=== PATIENT | female | born 1955 | race Caucasian/White ===

== ENCOUNTER 2021-12-10 12:34 | Inpatient (IN) | payer MEDICARE, SELFPAY ==
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
[2021-12-10 18:00] VITALS: BP 138/68; PULSE 91; RESP 16; TEMP 36.4; O2SAT 96
[2021-12-10] MEDS: traZODone HCL 50 MG TABLET PO (19:50)
[2021-12-11 08:22] LABS: Alanine Aminotransferase 26 U/L (0-31); Albumin Level 4.2 g/dL (3.5-5.0); Alkaline Phosphatase 77 U/L (39-117); Anion Gap 16 (12-20); Aspartate Amino Transferase 34 U/L (5-31); Bilirubin Total 1.8 mg/dL (0.0-1.0); Blood Urea Nitrogen 19 mg/dL (9-16); Calcium 9.1 mg/dL (8.4-10.2); Carbon Dioxide 28 mmol/L (22-29); Chloride 103 mmol/L (96-108); Cholesterol 235 mg/dL; Estimated Glomerular Filt Rate > 60; Glucose Fasting 110 mg/dL (60-99); HDL Cholesterol 68 mg/dL; LDL Cholesterol Calculated 154 mg/dl; Potassium 3.8 mmol/L (3.3-5.1); Sodium 143 mmol/L (135-145); Triglycerides 66 mg/dL
[2021-12-11 08:42] LABS: Thyroid Stimulating Hormone 1.58 uIU/mL (0.32-4.0)
--- NOTE | 2021-12-11 10:16 | HO.PSYCHPN ---
Subjective Subjective Date of Service: 12/11/21 Reason For Visit: Major Neurocongnitive disturbance due to medical c Subjective Notes: Section 12B Interim History: Per nursing, pt slightly combative last night when redirected to bed. She did need encouragement to take medications, suspect as pt may not realize what it is. Pt was showered by staff with redirection but no s/s of aggression or agitation. Pt's attention slightly better- did respond to this fiction and nonfiction writer prose when asked how are you? she states I am good. Continues to present with derailment, most sentences are unintelligible- expressive and comprehension impaired. Affect very pleasant. In no physical distress. VS stable. Review of Systems Review of Systems Yes Unobtainable due to mental status Mental Status Exam Mental Status Exam Narrative: Appearance: appears her stated age, wearing hospital gown, malodorous and unkempt, pacing, interrupting at times others but in no evident acute distress. She is smiling. Behavior:pleasant but unable to acknowledge this fiction and nonfiction writer prose pleasant, often pacing, moving around, purposeless motions. psychomotor:often pacing, moving around, purposeless motions. but no aggression. No retardation. Speech:mumbles, disorganized, difficult to understand but spontaneous Thought process:derail, disorganized, non sensical Thought content:unable to understand Mood:unable to assess Affect: pleasant, bright, smiling SI:unable to assess HI:unable to assess VH/AH:she is talking without acknolegdment of who is there but not clear that this is due to psychosis Delusions:not evident Insight/judgment:severely impaired. Memory/cog: alert, only oriented to person. Diagnostics Vital Signs (24Hr): Vital Signs - 24 hr 12/10/21 18:00 Temperature 97.6 F Pulse Rate 91 Respiratory Rate 16 Blood Pressure 138/68 Pulse Oximetry 96 Oxygen Delivery Method Room Air Labs Results: 12/11/21 07:59 Labs: Laboratory Results - last 48 hr 12/11/21 07:59 Sodium 143 Potassium 3.8 Chloride 103 Carbon Dioxide 28 Anion Gap 16 BUN 19 H Creatinine 0.78 Estim Creat Clear Calc TNP Estimated GFR > 60 Fasting Glucose 110 H Calcium 9.1 Total Bilirubin 1.8 H AST 34 H ALT 26 Alkaline Phosphatase 77 Total Protein 7.0 Albumin 4.2 Triglycerides 66 Cholesterol 235 LDL Cholesterol, Calc 154 HDL Cholesterol 68 TSH 1.58 Medications Medications Current Medications Acetaminophen (Acetaminophen 325 Mg Tablet) 650 mg PO Q6H PRN PRN Reason: Headache/Pain Mild Scale (1-3) Al Hydroxide/Mg Hydroxide (Magnesium Hydrox/Alum Hydrox 30 Ml Oral.Susp) 30 ml PO Q6H PRN PRN Reason: Heartburn/Nausea Hydroxyzine HCl (Hydroxyzine Hcl 25 Mg Tablet) 25 mg PO Q6H PRN PRN Reason: Anxiety Magnesium Hydroxide (Milk Of Magnesia 30 Ml Oral.Susp) 30 ml PO DAILY PRN PRN Reason: Constipation Quetiapine Fumarate (Quetiapine Fumarate 50 Mg Tablet) 50 mg PO Q6H PRN PRN Reason: agitation Trazodone HCl (Trazodone Hcl 50 Mg Tablet) 50 mg PO BEDTIME PRN PRN Reason: Insomnia Last Admin: 12/10/21 19:50 Dose: 50 mg Allergies Allergies Allergy/AdvReac Type Severity Reaction Status Date / Time No Known Allergies Allergy Verified 12/10/21 14:27 Assessment & Plan Assessment & Plan (1) Alzheimer's dementia with behavioral disturbance: Status: Acute Code(s): G30.9 - Alzheimer's disease, unspecified; F02.81 - Dementia in other diseases classified elsewhere with behavioral disturbance (2) Delirium superimposed on dementia: Status: Acute Code(s): F05 - Delirium due to known physiological condition Plan Mrs. Ferguson is a 66 year-old woman with hx of Alzheimer's Dementia, dx 2 years ago, per family significant declined in past 3 months but acute change in aggression for past 48hrs prior to bringing her to [place] ED. Pt with hx of recurrent UTIs, but urinalysis negative, not even indication need for culture or microscopic analysis. CBC, BMP unremarkable. Pt presents as pleasantly confused, with poor attention, purposeless psychomotor activation which could indicate a superimposed delirium on underlying dementia. Speech is non sensical. Oriented only to person. Pt does not have capacity to make medication decisions as clear lacks understanding of medical conditions, treatment, and ability to verbalize an answer. HCP has been invoked for this reason and do not anticipate that pt will regain capacity to make medication decisions even if delirium resolves. PLAN 1. Admit on Sect 12b, 15 mins checks, HCP invoked, will reach out to HCP, to sign CV by proxy. 2. continue current medications. 3. obtain further collateral information 4. aftercare planning. 12/11 seroquel prn for agitation. I spent minutes with the patient and/or on the patient floor today, greater than?50% of which was spent counseling/coordinating care. Reason for contiued inpatient stay Substantial Risk for: inability to function
--- NOTE | 2021-12-11 17:37 | PC.NURSE ---
Pt's , Andrew Ferguson, signed a CV by healthcare proxy.
[2021-12-11 18:00] VITALS: BP 105/66; PULSE 97; RESP 16; TEMP 36.3; O2SAT 98
[2021-12-12 06:00] VITALS: BP 121/78; PULSE 81; RESP 16; TEMP 36.8; O2SAT 95
[2021-12-12 07:37] LABS: Estimated Average Glucose 105 mg/dL; Hemoglobin A1c % 5.3 %
[2021-12-12 08:07] LABS: Vitamin B12 489 pg/mL (200-900)
--- NOTE | 2021-12-12 14:29 | HO.PSYCHPN ---
Subjective Subjective Date of Service: 12/12/21 Reason For Visit: Major Neurocongnitive disturbance due to medical c Interim History: The nursing staff reported the patient slept poorly last night, she remains nonsensical at times and carrying a baby doll. The staff has reported that she needs help with feeding and sometimes prompting and cuing are not enough. She has been wandering and being intrusive and needed redirection. On interview the patient was pleasantly confused smiling and stating that she is doing fine. Mental Status Exam Mental Status Exam Patient Appearance: Well Grooomed Patient Orientation: Person Level of Consciousness: Awake Patient Behavior: Cooperative Mood Description: Constricted Affect Description: Calm Patient Cognition Impaired: Yes Ability to Follow Directions: Fair Speech Pattern: Impoverished Hallucinations: None Delusions: Not Present Thought Process: Illogical Thought Content: positive for [place] and positive for Disorganized Judgement: Poor Diagnostics Vital Signs (24Hr): Vital Signs - 24 hr 12/11/21 18:00 12/12/21 06:00 Temperature 97.3 F 98.2 F Pulse Rate 97 81 Respiratory Rate 16 16 Blood Pressure 105/66 121/78 Pulse Oximetry 98 95 Oxygen Delivery Method Room Air Room Air Labs Results: 12/11/21 07:59 Labs: Laboratory Results - last 48 hr 12/11/21 12/11/21 12/11/21 07:59 07:59 07:59 Sodium 143 Potassium 3.8 Chloride 103 Carbon Dioxide 28 Anion Gap 16 BUN 19 H Creatinine 0.78 Estim Creat Clear Calc TNP Estimated GFR > 60 Fasting Glucose 110 H Estimat Average Glucose 105 Hemoglobin A1c % 5.3 Calcium 9.1 Total Bilirubin 1.8 H AST 34 H ALT 26 Alkaline Phosphatase 77 Total Protein 7.0 Albumin 4.2 Triglycerides 66 Cholesterol 235 LDL Cholesterol, Calc 154 HDL Cholesterol 68 Vitamin B12 489 TSH 1.58 Medications Medications Current Medications Acetaminophen (Acetaminophen 325 Mg Tablet) 650 mg PO Q6H PRN PRN Reason: Headache/Pain Mild Scale (1-3) Al Hydroxide/Mg Hydroxide (Magnesium Hydrox/Alum Hydrox 30 Ml Oral.Susp) 30 ml PO Q6H PRN PRN Reason: Heartburn/Nausea Hydroxyzine HCl (Hydroxyzine Hcl 25 Mg Tablet) 25 mg PO Q6H PRN PRN Reason: Anxiety Magnesium Hydroxide (Milk Of Magnesia 30 Ml Oral.Susp) 30 ml PO DAILY PRN PRN Reason: Constipation Quetiapine Fumarate (Quetiapine Fumarate 50 Mg Tablet) 50 mg PO Q6H PRN PRN Reason: agitation Trazodone HCl (Trazodone Hcl 50 Mg Tablet) 50 mg PO BEDTIME PRN PRN Reason: Insomnia Last Admin: 12/10/21 19:50 Dose: 50 mg Allergies Allergies Allergy/AdvReac Type Severity Reaction Status Date / Time No Known Allergies Allergy Verified 12/10/21 14:27 Assessment & Plan Assessment & Plan (1) Alzheimer's dementia with behavioral disturbance: Status: Acute Code(s): G30.9 - Alzheimer's disease, unspecified; F02.81 - Dementia in other diseases classified elsewhere with behavioral disturbance (2) Delirium superimposed on dementia: Status: Acute Code(s): F05 - Delirium due to known physiological condition Plan Mrs. Ferguson is a 66 year-old woman with hx of Alzheimer's Dementia, dx 2 years ago, per family significant declined in past 3 months but acute change in aggression for past 48hrs prior to bringing her to [place] ED. Pt with hx of recurrent UTIs, but urinalysis negative, not even indication need for culture or microscopic analysis. CBC, BMP unremarkable. Pt presents as pleasantly confused, with poor attention, purposeless psychomotor activation which could indicate a superimposed delirium on underlying dementia. Speech is non sensical. Oriented only to person. Pt does not have capacity to make medication decisions as clear lacks understanding of medical conditions, treatment, and ability to verbalize an answer. HCP has been invoked for this reason and do not anticipate that pt will regain capacity to make medication decisions even if delirium resolves. PLAN 1. Admit on Sect 12b, 15 mins checks, HCP invoked, will reach out to HCP, to sign CV by proxy. 2. continue current medications. 3. obtain further collateral information 4. aftercare planning. 5. Continue Seroquel p.r.n. I spent ___20___ minutes with the patient and/or on the patient floor today, greater than?50% of which was spent counseling/coordinating care. Reason for contiued inpatient stay Substantial Risk for: inability to function, rapid decompensation and med/psych decompensation
--- NOTE | 2021-12-12 17:36 | P.CONHOSP_ITS ---
History of Present Illness Data of Consult Service Date: 12/12/21 Requesting physician: Leonor Padilla Primary Care Provider: Nonstaff Physician HPI Reason for consult: medical h&p Patient with alzheimer's dementia (diagnosed 2 years ago) admitted to psychiatry from [facility] ED due to decline in functioning over the last 3 months and increased aggitation/aggression more recently. There were complaints from family about burning on mictrition and suprapubic pain and has history of recurrent UTI on macrobid daily. In the ED, urinalysis was negative, culture not performed. Hematology and chemistry studies normal. The patient is pleasantly confused on examination and is completely unable to make sensible/meaningful statements or answer targeted questions or provide history. History obtained from paper chart in [facility]. Review of Systems Review of Systems: Yes Unobtainable due to mental status PMFSH Social History Household Members: Spouse Housing: House Do you presently have visiting nurse or other home services: Yes (According to medical records the pt has an elder care provider.) Patient Tobacco Use Status: Never used Tobacco Use of substances other than those prescribed or required for medical reasons: No Currently Displaying Signs/Symptoms of Drug Intoxication Withdrawal: No Have you been hit, kicked, punched, or otherwise hurt by someone within the past year? If so, by whom?: No Do you feel safe in your current relationship?: No Is there a partner from a previous relationship who is making you feel unsafe now?: No Are you made to feel afraid or neglected: No Advance Directives: Yes Advance Directives on File: Yes Advance Directives Date on File: 12/10/21 Do you have thoughts of harming others: None Do you have a plan to hurt others: No Plan Recently lost weight without trying: No Eating poorly because of decreased appetite: Yes Nutrition Risks: Poor intake 0-25% >4 days Patient : No : No Poor oral hygiene: No service: No Sexual orientation: Straight/Heterosexual Meds Allergies Allergy/AdvReac Type Severity Reaction Status Date / Time No Known Allergies Allergy Verified 12/10/21 14:27 Active Medications: Current Medications Acetaminophen (Acetaminophen 325 Mg Tablet) 650 mg PO Q6H PRN PRN Reason: Headache/Pain Mild Scale (1-3) Al Hydroxide/Mg Hydroxide (Magnesium Hydrox/Alum Hydrox 30 Ml Oral.Susp) 30 ml PO Q6H PRN PRN Reason: Heartburn/Nausea Hydroxyzine HCl (Hydroxyzine Hcl 25 Mg Tablet) 25 mg PO Q6H PRN PRN Reason: Anxiety Magnesium Hydroxide (Milk Of Magnesia 30 Ml Oral.Susp) 30 ml PO DAILY PRN PRN Reason: Constipation Quetiapine Fumarate (Quetiapine Fumarate 50 Mg Tablet) 50 mg PO Q6H PRN PRN Reason: agitation Trazodone HCl (Trazodone Hcl 50 Mg Tablet) 50 mg PO BEDTIME PRN PRN Reason: Insomnia Last Admin: 12/10/21 19:50 Dose: 50 mg Home Medications Medication Instructions Recorded Confirmed Last Taken Type Risperdal 1 tab PO 2XD 12/10/21 12/10/21 Unknown History lorazepam 0.5 mg PO 3XD 12/10/21 12/10/21 Unknown History Physical Exam Vital Signs and Narrative: Vital Signs: Last Vital Signs Temp 98.2 F 12/12/21 06:00 Pulse 81 12/12/21 06:00 Resp 16 12/12/21 06:00 BP 121/78 12/12/21 06:00 Pulse Ox 95 12/12/21 06:00 O2 Del Method 12/12/21 06:00 Constitutional - Awake and Alert, No apparent distress Eyes - PERRLA, EOMI Cardiovascular - S1S2, RRR, No edema Respiratory - Normal lung expansion, Normal respiratory effort, No respiratory distress, CTA bilaterally Gastrointestinal - NT / ND; +BS; No rebound or guarding Extremities - no calf tenderness bilaterally, no swelling Skin - Warm/Dry Neurological - Alert & confused. Speech is derailed with poor attention and is unable to answer questions, Unable to assess cranial nerves as pt unable to follow commands but eyes do appear to track appropriately and PERRLA. 5/5 strength BUE and BLE Results Labs CBC and Chem 7: 12/11/21 07:59 Labs: Laboratory Results - last 24 hr 12/11/21 12/11/21 07:59 07:59 Estimat Average Glucose 105 Hemoglobin A1c % 5.3 Vitamin B12 489 Assessment and Plan (1) Delirium superimposed on dementia: Status: Acute (2) Alzheimer's dementia with behavioral disturbance: Status: Acute Plan Patient with alzheimer's dementia (diagnosed 2 years ago) admitted to psychiatry being consulted on for medical H&P. 1-Alzheimer's dementia -Hematology and chemistries normal except for midly elevated bilirubin. Will recheck CMP -Also recommend rechecking UA with reflex culture to rule out UTI given altered mental status more recently. -If no recent head ct, would recommend ordering this to rule out structural pathology that could be contributing to her AMS -Continue plan per psychiatry. 2-Recurrent UTI -Psych admission note mentions patient on daily macrobid. She should continue t his for prophylaxis if taken at home
[2021-12-12 18:00] VITALS: BP 127/89; PULSE 92; RESP 17; TEMP 36.2; O2SAT 96
[2021-12-12 18:26] LABS: Alanine Aminotransferase 40 U/L (0-31); Albumin Level 4.4 g/dL (3.5-5.0); Alkaline Phosphatase 73 U/L (39-117); Anion Gap 18 (12-20); Aspartate Amino Transferase 53 U/L (5-31); Bilirubin Total 1.5 mg/dL (0.0-1.0); Blood Urea Nitrogen 20 mg/dL (9-16); Calcium 9.3 mg/dL (8.4-10.2); Carbon Dioxide 24 mmol/L (22-29); Chloride 103 mmol/L (96-108); Estimated Glomerular Filt Rate > 60; Glucose Random 100 mg/dL (60-115); Potassium 3.6 mmol/L (3.3-5.1); Sodium 141 mmol/L (135-145); Total Protein 7.4 g/dL (6.5-8.0)
[2021-12-12] MEDS: traZODone HCL 50 MG TABLET PO (21:48)
[2021-12-12] MEDS: hydrOXYzine HCL 25 MG TABLET PO (21:48)
[2021-12-12] MEDS: Acetaminophen 325 MG TABLET 650 MG PO (21:50)
[2021-12-13 06:00] VITALS: BP 119/71; PULSE 73; RESP 16; TEMP 36; O2SAT 95
--- NOTE | 2021-12-13 11:06 | HO.PSYCHPN ---
Subjective Subjective Date of Service: 12/13/21 Reason For Visit: Major Neurocongnitive disturbance due to medical c Subjective Notes: Conditional Voluntary Interim History: The nursing staff reported the patient had remains confused, not oriented not even to self. She slept 5 hours and woke up at 05:30 in the morning. The patient carries a doll and she is pleasantly confused. On interview the patient denies new symptoms she is confused and disorganized. But, so far, no evidence of violent agitation as per intake note. Mental Status Exam Mental Status Exam Patient Appearance: Appropriate Level of Consciousness: Awake Patient Behavior: Guarded and Passive Mood Description: Calm Affect Description: Labile Patient Cognition Impaired: Yes Ability to Follow Directions: Fair Speech Pattern: Clear Hallucinations: None Delusions: Not Present Thought Process: Distracted Thought Content: positive for Circumstantial Judgement: Poor Diagnostics Vital Signs (24Hr): Vital Signs - 24 hr 12/12/21 18:00 Temperature 97.1 F Pulse Rate 92 Respiratory Rate 17 Blood Pressure 127/89 Pulse Oximetry 96 Oxygen Delivery Method Room Air Labs Results: 12/12/21 18:00 Labs: Laboratory Results - last 48 hr 12/11/21 12/11/21 12/12/21 07:59 07:59 18:00 Sodium 141 Potassium 3.6 Chloride 103 Carbon Dioxide 24 Anion Gap 18 BUN 20 H Creatinine 0.77 Estim Creat Clear Calc TNP Estimated GFR > 60 Random Glucose 100 Estimat Average Glucose 105 Hemoglobin A1c % 5.3 Calcium 9.3 Total Bilirubin 1.5 H AST 53 H ALT 40 H Alkaline Phosphatase 73 Total Protein 7.4 Albumin 4.4 Vitamin B12 489 Medications Medications Current Medications Acetaminophen (Acetaminophen 325 Mg Tablet) 650 mg PO Q6H PRN PRN Reason: Headache/Pain Mild Scale (1-3) Last Admin: 12/12/21 21:50 Dose: 650 mg Al Hydroxide/Mg Hydroxide (Magnesium Hydrox/Alum Hydrox 30 Ml Oral.Susp) 30 ml PO Q6H PRN PRN Reason: Heartburn/Nausea Hydroxyzine HCl (Hydroxyzine Hcl 25 Mg Tablet) 25 mg PO Q6H PRN PRN Reason: Anxiety Last Admin: 12/12/21 21:48 Dose: 25 mg Magnesium Hydroxide (Milk Of Magnesia 30 Ml Oral.Susp) 30 ml PO DAILY PRN PRN Reason: Constipation Quetiapine Fumarate (Quetiapine Fumarate 50 Mg Tablet) 50 mg PO Q6H PRN PRN Reason: agitation Trazodone HCl (Trazodone Hcl 50 Mg Tablet) 50 mg PO BEDTIME PRN PRN Reason: Insomnia Last Admin: 12/12/21 21:48 Dose: 50 mg Allergies Allergies Allergy/AdvReac Type Severity Reaction Status Date / Time No Known Allergies Allergy Verified 12/10/21 14:27 Assessment & Plan Assessment & Plan (1) Delirium superimposed on dementia: Status: Acute Code(s): F05 - Delirium due to known physiological condition (2) Alzheimer's dementia with behavioral disturbance: Status: Acute Code(s): G30.9 - Alzheimer's disease, unspecified; F02.81 - Dementia in other diseases classified elsewhere with behavioral disturbance Plan Patient with alzheimer's dementia (diagnosed 2 years ago) admitted to psychiatry being consulted on for medical H&P. 1-Alzheimer's dementia -Hematology and chemistries normal except for midly elevated bilirubin. Will recheck CMP -Also recommend rechecking UA with reflex culture to rule out UTI given altered mental status more recently. -If no recent head ct, would recommend ordering this to rule out structural pathology that could be contributing to her AMS -Continue plan per psychiatry. 2-Recurrent UTI -Psych admission note mentions patient on daily macrobid. She should continue this for prophylaxis if taken at home Plan: At this moment we will not start any antipsychotics since there has not been escalation of violence or gross psychotic symptoms I spent ___20___ minutes with the patient and/or on the patient floor today, greater than?50% of which was spent counseling/coordinating care. Informed Consent: does not understand Reason for contiued inpatient stay Substantial Risk for: inability to function, rapid decompensation and med/psych decompensation
[2021-12-13 11:26] LABS: Appearance Urine Clear; Color Urine Dark Yellow; Glucose Urine UA Negative (Negative); Leukocyte Esterase Urine Small (1+) (Negative); Nitrite Urine Positive (Negative); Specific Gravity - Urine >= 1.030 (1.005-1.025); UMIC TRIGGER UACC YES; Urine Blood Small (1+) (Negative); Urine Ketones Trace mg/dL (Negative); Urine Protein Trace mg/dL (Neg-Trace)
[2021-12-13 11:35] LABS: Bacteria Urine 4+ (None Seen); Calcium Oxalate Crystals Urine Present; Hyaline Casts Urine 0-2 /LPF (0-2); RBC Urine 0-2 /HPF (0-2); Squamous Epithelial Cell Urine 0-2 /HPF (0-2); UACC Culture Trigger YES; WBC Urine 0-5 /HPF (0-5)
[2021-12-13 11:38] LABS: Ammonia 23 umol/L (13-55)
[2021-12-13 18:00] VITALS: PULSE 92; RESP 18; TEMP 36.2; O2SAT 98
--- NOTE | 2021-12-13 19:04 | PM.EVENT ---
Event Note Date of Service: 12/13/21 Event Note: Pt UA 1+leuks, nitrite pos, 1+ blood. Pt started on ceftin BID x5 days. Hold nitrofurantoin at this time. Resume once ceftin completed. pending.
[2021-12-13] MEDS: traZODone HCL 50 MG TABLET PO (21:01)
[2021-12-13] MEDS: hydrOXYzine HCL 25 MG TABLET PO (21:01)
[2021-12-14 06:00] VITALS: RESP 17
--- NOTE | 2021-12-14 09:50 | P.PNPSI_ITS ---
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 She has not been appropriate for groups because she has been very confused and she paces around the unit disorganized. The hospitals reported that she has a UTI and she is on antibiotics later we will start Macrodantin. The outreach and education social worker talked with her daughter and they do not want to take her back home since she has to demented and aggressive apparently the family had been working with an photography colorist regarding guardianship. On interview the patient was pleasantly confused. Mental Status Exam Mental Status Exam Patient Appearance: Well Grooomed Patient Orientation: Person Level of Consciousness: Awake Patient Behavior: Guarded and Passive Mood Description: Calm Affect Description: Constricted Patient Cognition Impaired: Yes Ability to Follow Directions: Good Speech Pattern: Clear Hallucinations: None Delusions: Paranoid Ideation Thought Process: Illogical and Distracted Thought Content: positive for Poverty of Content Judgement: Fair Diagnostics Vital Signs (24Hr): Vital Signs - 24 hr 12/13/21 18:00 Temperature 97.1 F Pulse Rate 92 Respiratory Rate 18 Pulse Oximetry 98 Oxygen Delivery Method Room Air Labs Results: 12/12/21 18:00 Labs: Laboratory Results - last 48 hr 12/12/21 12/13/21 12/13/21 18:00 10:55 10:55 Sodium 141 Potassium 3.6 Chloride 103 Carbon Dioxide 24 Anion Gap 18 BUN 20 H Creatinine 0.77 Estim Creat Clear Calc TNP Estimated GFR > 60 Random Glucose 100 Calcium 9.3 Total Bilirubin 1.5 H AST 53 H ALT 40 H Alkaline Phosphatase 73 Ammonia Total Protein 7.4 Albumin 4.4 Urine Color Dark Yellow Cancelled Urine Appearance Clear Cancelled Urine pH 5.0 Cancelled Ur Specific [place] >= 1.030 H Cancelled Urine Protein Trace Cancelled Urine Glucose (UA) Negative Cancelled Urine Ketones Trace Cancelled Urine Blood Small (1+) H Cancelled Urine Nitrite Positive H Cancelled Ur Leukocyte Esterase Small (1+) H Cancelled Urine RBC 0-2 Cancelled Urine WBC 0-5 Cancelled Urine WBC Clumps Cancelled Ur Squamous Epith Cells 0-2 Cancelled Ur Transition Epith Cell Cancelled Ur Renal Epithelial Cell Cancelled Calcium Oxalate Crystal Present Cancelled Leucine Crystals Cancelled Cystine Crystals Cancelled Tyrosine Crystals Cancelled Other Crystals Cancelled Urine Bacteria 4+ Cancelled Urine Parasites Cancelled Bilirubin Casts Cancelled Epithelial Casts Cancelled Fatty Casts Cancelled Hyaline Casts 0-2 Cancelled Granular Casts Cancelled Waxy Casts Cancelled Broad Casts Cancelled RBC Casts Cancelled WBC Casts Cancelled Other Casts Cancelled Urine Trichomonas Cancelled Urine Yeast Cancelled 12/13/21 11:25 Sodium Potassium Chloride Carbon Dioxide Anion Gap BUN Creatinine Estim Creat Clear Calc Estimated GFR Random Glucose Calcium Total Bilirubin AST ALT Alkaline Phosphatase Ammonia 23 Total Protein Albumin Urine Color Urine Appearance Urine pH Ur Specific [place] Urine Protein Urine Glucose (UA) Urine Ketones Urine Blood Urine Nitrite Ur Leukocyte Esterase Urine RBC Urine WBC Urine WBC Clumps Ur Squamous Epith Cells Ur Transition Epith Cell Ur Renal Epithelial Cell Calcium Oxalate Crystal Leucine Crystals Cystine Crystals Tyrosine Crystals Other Crystals Urine Bacteria Urine Parasites Bilirubin Casts Epithelial Casts Fatty Casts Hyaline Casts Granular Casts Waxy Casts Broad Casts RBC Casts WBC Casts Other Casts Urine Trichomonas Urine Yeast Medications Medications Current Medications Acetaminophen (Acetaminophen 325 Mg Tablet) 650 mg PO Q6H PRN PRN Reason: Headache/Pain Mild Scale (1-3) Last Admin: 12/12/21 21:50 Dose: 650 mg Al Hydroxide/Mg Hydroxide (Magnesium Hydrox/Alum Hydrox 30 Ml Oral.Susp) 30 ml PO Q6H PRN PRN Reason: Heartburn/Nausea Cefuroxime Axetil (Cefuroxime Axetil 250 Mg Tablet) 250 mg PO Q12H LACEY Stop: 12/18/21 19:59 Last Admin: 12/14/21 09:19 Dose: Not Given Hydroxyzine HCl (Hydroxyzine Hcl 25 Mg Tablet) 25 mg PO Q6H PRN PRN Reason: Anxiety Last Admin: 12/13/21 21:01 Dose: 25 mg Magnesium Hydroxide (Milk Of Magnesia 30 Ml Oral.Susp) 30 ml PO DAILY PRN PRN Reason: Constipation Quetiapine Fumarate (Quetiapine Fumarate 50 Mg Tablet) 50 mg PO Q6H PRN PRN Reason: agitation Trazodone HCl (Trazodone Hcl 50 Mg Tablet) 50 mg PO BEDTIME PRN PRN Reason: Insomnia Last Admin: 12/13/21 21:01 Dose: 50 mg Trazodone HCl (Trazodone Hcl 50 Mg Tablet) 50 mg PO TID PRN PRN Reason: anxiety/agitation Allergies Allergies Allergy/AdvReac Type Severity Reaction Status Date / Time No Known Allergies Allergy Verified 12/10/21 14:27 Assessment & Plan Assessment & Plan (1) Delirium superimposed on dementia: Status: Acute Code(s): F05 - Delirium due to known physiological condition (2) Alzheimer's dementia with behavioral disturbance: Status: Acute Code(s): G30.9 - Alzheimer's disease, unspecified; F02.81 - Dementia in other diseases classified elsewhere with behavioral disturbance Plan Patient with alzheimer's dementia (diagnosed 2 years ago) admitted to psychiatry being consulted on for medical H&P. 1-Alzheimer's dementia -Hematology and chemistries normal except for midly elevated bilirubin. Will recheck CMP -Also recommend rechecking UA with reflex culture to rule out UTI given altered mental status more recently. -If no recent head ct, would recommend ordering this to rule out structural pathology that could be contributing to her AMS -Continue plan per psychiatry. 2-Recurrent UTI -Psych admission note mentions patient on daily macrobid. She should continue this for prophylaxis if taken at home Plan: At this moment we will not start any antipsychotics since there has not been escalation of violence or gross psychotic symptoms I spent __20____ minutes with the patient and/or on the patient floor today, greater than?50% of which was spent counseling/coordinating care. Reason for contiued inpatient stay Substantial Risk for: inability to function, rapid decompensation and med/psych decompensation
[2021-12-14] MEDS: traZODone HCL 50 MG TABLET PO (22:24)
[2021-12-14] MEDS: hydrOXYzine HCL 25 MG TABLET PO (22:24)
[2021-12-15 08:00] VITALS: BP 130/74; PULSE 76; RESP 15; TEMP 36.4; O2SAT 95
--- NOTE | 2021-12-15 13:02 | HO.PSYCHPN ---
Subjective Subjective Date of Service: 12/15/21 Reason For Visit: Major Neurocongnitive disturbance due to medical c Subjective Notes: Conditional Voluntary Interim History: The patient has been profoundly confused and difficult to redirect at times. She is focused on his baby doll. The occupational therapist reported that they had a good groups yesterday needs a lot of encouragement but eventually she was able to participate in gardening. The nursing staff reported that she has spit her antibiotics yesterday and now today. She slept with medications p.r.n. and she was slightly Edy resistant to care in the morning. On interview she is pleasantly confused Mental Status Exam Mental Status Exam Patient Appearance: Well Grooomed Patient Orientation: Person and Situation Level of Consciousness: Awake Patient Behavior: Cooperative Mood Description: Calm Affect Description: Constricted Patient Cognition Impaired: Yes Ability to Follow Directions: Good Speech Pattern: Impoverished Hallucinations: None Delusions: Not Present Thought Process: Distracted Thought Content: positive for Circumstantial Judgement: Fair Diagnostics Labs Results: 12/12/21 18:00 Medications Medications Current Medications Acetaminophen (Acetaminophen 325 Mg Tablet) 650 mg PO Q6H PRN PRN Reason: Headache/Pain Mild Scale (1-3) Last Admin: 12/12/21 21:50 Dose: 650 mg Al Hydroxide/Mg Hydroxide (Magnesium Hydrox/Alum Hydrox 30 Ml Oral.Susp) 30 ml PO Q6H PRN PRN Reason: Heartburn/Nausea Cefuroxime Axetil (Cefuroxime Axetil 250 Mg Tablet) 250 mg PO Q12H LACEY Stop: 12/18/21 19:59 Last Admin: 12/15/21 09:46 Dose: Not Given Hydroxyzine HCl (Hydroxyzine Hcl 25 Mg Tablet) 25 mg PO Q6H PRN PRN Reason: Anxiety Last Admin: 12/14/21 22:24 Dose: 25 mg Magnesium Hydroxide (Milk Of Magnesia 30 Ml Oral.Susp) 30 ml PO DAILY PRN PRN Reason: Constipation Quetiapine Fumarate (Quetiapine Fumarate 50 Mg Tablet) 50 mg PO Q6H PRN PRN Reason: agitation Trazodone HCl (Trazodone Hcl 50 Mg Tablet) 50 mg PO BEDTIME PRN PRN Reason: Insomnia Last Admin: 12/14/21 22:24 Dose: 50 mg Trazodone HCl (Trazodone Hcl 50 Mg Tablet) 50 mg PO TID PRN PRN Reason: anxiety/agitation Allergies Allergies Allergy/AdvReac Type Severity Reaction Status Date / Time No Known Allergies Allergy Verified 12/10/21 14:27 Assessment & Plan Assessment & Plan (1) Delirium superimposed on dementia: Status: Acute Code(s): F05 - Delirium due to known physiological condition (2) Alzheimer's dementia with behavioral disturbance: Status: Acute Code(s): G30.9 - Alzheimer's disease, unspecified; F02.81 - Dementia in other diseases classified elsewhere with behavioral disturbance Plan Patient with alzheimer's dementia (diagnosed 2 years ago) admitted to psychiatry being consulted on for medical H&P. 1-Alzheimer's dementia -Hematology and chemistries normal except for midly elevated bilirubin. Will recheck CMP -Also recommend rechecking UA with reflex culture to rule out UTI given altered mental status more recently. -If no recent head ct, would recommend ordering this to rule out structural pathology that could be contributing to her AMS -Continue plan per psychiatry. 2-Recurrent UTI -Psych admission note mentions patient on daily macrobid. She should continue this for prophylaxis if taken at home Plan: At this moment we will not start any antipsychotics since there has not been escalation of violence or gross psychotic symptoms I spent ___20___ minutes with the patient and/or on the patient floor today, greater than?50% of which was spent counseling/coordinating care. Reason for contiued inpatient stay Substantial Risk for: inability to function, rapid decompensation and med/psych decompensation
[2021-12-15 18:00] VITALS: BP 128/77; PULSE 77; RESP 17; TEMP 36.4; O2SAT 95
[2021-12-15] MEDS: traZODone HCL 50 MG TABLET PO (20:58)
[2021-12-15] MEDS: hydrOXYzine HCL 25 MG TABLET PO (20:58)
[2021-12-16 08:00] VITALS: PULSE 86; RESP 17; TEMP 36.6; O2SAT 95
--- NOTE | 2021-12-16 08:29 | HO.PSYCHPN ---
Subjective Subjective Date of Service: 12/16/21 Reason For Visit: Major Neurocongnitive disturbance due to medical c Subjective Notes: Conditional Voluntary ( By healthcare proxy) Interim History: the nursing staff reported the patient has been very confused and disoriented she needs constant redirection but she is cooperative with care and now she is taking medications. She slept all night. Still on antibiotics for UTI. After finishing the cefuroxime ill we will continue with Macrodantin. On interview the patient looks pleasantly confused, isolative unable to engage in a full conversation. Mental Status Exam Mental Status Exam Patient Appearance: Well Grooomed Patient Orientation: Person Level of Consciousness: Awake Patient Behavior: Cooperative Mood Description: Withdrawn Affect Description: Constricted Patient Cognition Impaired: Yes Ability to Follow Directions: Fair Speech Pattern: Impoverished and Soft-Spoken Hallucinations: None Delusions: Not Present Thought Process: Illogical and Distracted Thought Content: positive for Disoriented Judgement: Poor Diagnostics Vital Signs (24Hr): Vital Signs - 24 hr 12/15/21 18:00 Temperature 97.6 F Pulse Rate 77 Respiratory Rate 17 Blood Pressure 128/77 Pulse Oximetry 95 Oxygen Delivery Method Room Air Labs Results: 12/12/21 18:00 Medications Medications Current Medications Acetaminophen (Acetaminophen 325 Mg Tablet) 650 mg PO Q6H PRN PRN Reason: Headache/Pain Mild Scale (1-3) Last Admin: 12/12/21 21:50 Dose: 650 mg Al Hydroxide/Mg Hydroxide (Magnesium Hydrox/Alum Hydrox 30 Ml Oral.Susp) 30 ml PO Q6H PRN PRN Reason: Heartburn/Nausea Cefuroxime Axetil (Cefuroxime Axetil 250 Mg Tablet) 250 mg PO Q12H LACEY Stop: 12/18/21 19:59 Last Admin: 12/16/21 08:16 Dose: 250 mg Hydroxyzine HCl (Hydroxyzine Hcl 25 Mg Tablet) 25 mg PO Q6H PRN PRN Reason: Anxiety Last Admin: 12/15/21 20:58 Dose: 25 mg Magnesium Hydroxide (Milk Of Magnesia 30 Ml Oral.Susp) 30 ml PO DAILY PRN PRN Reason: Constipation Quetiapine Fumarate (Quetiapine Fumarate 50 Mg Tablet) 50 mg PO Q6H PRN PRN Reason: agitation Trazodone HCl (Trazodone Hcl 50 Mg Tablet) 50 mg PO BEDTIME PRN PRN Reason: Insomnia Last Admin: 12/15/21 20:58 Dose: 50 mg Trazodone HCl (Trazodone Hcl 50 Mg Tablet) 50 mg PO TID PRN PRN Reason: anxiety/agitation Allergies Allergies Allergy/AdvReac Type Severity Reaction Status Date / Time No Known Allergies Allergy Verified 12/10/21 14:27 Assessment & Plan Assessment & Plan (1) Delirium superimposed on dementia: Status: Acute Code(s): F05 - Delirium due to known physiological condition (2) Alzheimer's dementia with behavioral disturbance: Status: Acute Code(s): G30.9 - Alzheimer's disease, unspecified; F02.81 - Dementia in other diseases classified elsewhere with behavioral disturbance Plan Patient with alzheimer's dementia (diagnosed 2 years ago) admitted to psychiatry being consulted on for medical H&P. 1-Alzheimer's dementia -Hematology and chemistries normal except for midly elevated bilirubin. Will recheck CMP -Also recommend rechecking UA with reflex culture to rule out UTI given altered mental status more recently. -If no recent head ct, would recommend ordering this to rule out structural pathology that could be contributing to her AMS -Continue plan per psychiatry. 2-Recurrent UTI -Psych admission note mentions patient on daily macrobid. She should continue this for prophylaxis if taken at home Plan: At this moment we will not start any antipsychotics since there has not been escalation of violence or gross psychotic symptoms I spent __20____ minutes with the patient and/or on the patient floor today, greater than?50% of which was spent counseling/coordinating care. Reason for contiued inpatient stay Substantial Risk for: inability to function, rapid decompensation and med/psych decompensation
[2021-12-16 10:15] VITALS: BMI 50.6
--- NOTE | 2021-12-16 10:38 | MHC.CLN ---
NUTRITION STAFF REPORTS PATIENT WITH USUALLY POOR INTAKE. DIET=REGULAR. ADDING ENSURE TID TO PROVIDE ADDITIONAL 1050 KCALS, 60 G PROTEIN. BMI=50.6, EXTREME OBESITY. CONTINUE TO ENCOURAGE INTAKE AND MEALS AND SUPPLEMENT.
[2021-12-16 19:30] VITALS: PULSE 71; RESP 16; TEMP 37.2; O2SAT 95
[2021-12-16] MEDS: traZODone HCL 50 MG TABLET PO (21:01)
[2021-12-16] MEDS: hydrOXYzine HCL 25 MG TABLET PO (21:01)
[2021-12-17 08:20] VITALS: BP 108/76; PULSE 75; RESP 16; TEMP 36.1
--- NOTE | 2021-12-17 10:16 | HO.PSYCHPN ---
Subjective Subjective Date of Service: 12/17/21 Reason For Visit: Major Neurocongnitive disturbance due to medical c Subjective Notes: Conditional Voluntary Interim History: Patient was seen and discussed in rounds today. Records and plans were reviewed. She continues to be quite confused, disorganized and regressed. She is mostly nonverbal. She is refusing meds and also the antibiotic for UTI. No complaints. No changes were made today Review of Systems Review of Systems Yes Unobtainable due to mental status Mental Status Exam Mental Status Exam Patient Appearance: Appropriate Patient Orientation: Person Level of Consciousness: Awake Patient Behavior: Cooperative Mood Description: Withdrawn Affect Description: Constricted Patient Cognition Impaired: Yes Ability to Follow Directions: Fair Speech Pattern: Impoverished and Soft-Spoken Hallucinations: None Delusions: Not Present Thought Process: Illogical and Distracted Thought Content: positive for Disoriented Judgement: Poor Diagnostics Vital Signs (24Hr): Vital Signs - 24 hr 12/16/21 19:30 12/17/21 08:20 Temperature 98.9 F 96.9 F Pulse Rate 71 75 Respiratory Rate 16 16 Blood Pressure 108/76 Pulse Oximetry 95 Oxygen Delivery Method Room Air BMI result Body Mass Index 50.6 Labs Results: 12/12/21 18:00 Medications Medications Current Medications Acetaminophen (Acetaminophen 325 Mg Tablet) 650 mg PO Q6H PRN PRN Reason: Headache/Pain Mild Scale (1-3) Last Admin: 12/12/21 21:50 Dose: 650 mg Al Hydroxide/Mg Hydroxide (Magnesium Hydrox/Alum Hydrox 30 Ml Oral.Susp) 30 ml PO Q6H PRN PRN Reason: Heartburn/Nausea Cefuroxime Axetil (Cefuroxime Axetil 250 Mg Tablet) 250 mg PO Q12H LACEY Stop: 12/18/21 19:59 Last Admin: 12/17/21 08:39 Dose: 250 mg Hydroxyzine HCl (Hydroxyzine Hcl 25 Mg Tablet) 25 mg PO Q6H PRN PRN Reason: Anxiety Last Admin: 12/16/21 21:01 Dose: 25 mg Magnesium Hydroxide (Milk Of Magnesia 30 Ml Oral.Susp) 30 ml PO DAILY PRN PRN Reason: Constipation Quetiapine Fumarate (Quetiapine Fumarate 50 Mg Tablet) 50 mg PO Q6H PRN PRN Reason: agitation Trazodone HCl (Trazodone Hcl 50 Mg Tablet) 50 mg PO BEDTIME PRN PRN Reason: Insomnia Last Admin: 12/16/21 21:01 Dose: 50 mg Trazodone HCl (Trazodone Hcl 50 Mg Tablet) 50 mg PO TID PRN PRN Reason: anxiety/agitation Allergies Allergies Allergy/AdvReac Type Severity Reaction Status Date / Time No Known Allergies Allergy Verified 12/10/21 14:27 Assessment & Plan Assessment & Plan (1) Delirium superimposed on dementia: Status: Acute Code(s): F05 - Delirium due to known physiological condition (2) Alzheimer's dementia with behavioral disturbance: Status: Acute Code(s): G30.9 - Alzheimer's disease, unspecified; F02.81 - Dementia in other diseases classified elsewhere with behavioral disturbance Plan Patient with alzheimer's dementia (diagnosed 2 years ago) admitted to psychiatry being consulted on for medical H&P. 1-Alzheimer's dementia -Hematology and chemistries normal except for midly elevated bilirubin. Will recheck CMP -Also recommend rechecking UA with reflex culture to rule out UTI given altered mental status more recently. -If no recent head ct, would recommend ordering this to rule out structural pathology that could be contributing to her AMS -Continue plan per psychiatry. 2-Recurrent UTI -Psych admission note mentions patient on daily macrobid. She should continue this for prophylaxis if taken at home Plan: At this moment we will not start any antipsychotics since there has not been escalation of violence or gross psychotic symptoms 12/17: Continue current regimen and plans I spent minutes with the patient and/or on the patient floor today, greater than?50% of which was spent counseling/coordinating care. Reason for contiued inpatient stay Substantial Risk for: inability to function
[2021-12-17 18:05] VITALS: BP 119/73; PULSE 66; RESP 16; TEMP 36.3; O2SAT 96
[2021-12-18 07:30] VITALS: BP 118/71; PULSE 76; RESP 20; TEMP 36.4; O2SAT 97
--- NOTE | 2021-12-18 08:02 | HO.PSYCHPN ---
Subjective Subjective Date of Service: 12/18/21 Reason For Visit: Major Neurocongnitive disturbance due to medical c Subjective Notes: Conditional Voluntary Interim History: Patient was seen and discussed in rounds today. Records and plans were reviewed. She is quite confused and note exhibiting any behavioral problems. Very little engagement. She slept 10 short periods. Limited fluid intake. No complaints. No side effects reported. No changes were made today Review of Systems Review of Systems Yes Unobtainable due to mental status Mental Status Exam Mental Status Exam Patient Appearance: Appropriate Patient Orientation: Person Level of Consciousness: Awake Patient Behavior: Suspicious Mood Description: Apathetic and Withdrawn Affect Description: Apathetic, Constricted and Blunted Patient Cognition Impaired: Yes Ability to Follow Directions: Fair Speech Pattern: Impoverished, Soft-Spoken and Long Pauses Hallucinations: None Delusions: Not Present Thought Process: Illogical and Distracted Thought Content: positive for Disoriented Judgement: Poor Diagnostics Vital Signs (24Hr): Vital Signs - 24 hr 12/17/21 08:20 12/17/21 18:05 Temperature 96.9 F 97.3 F Pulse Rate 75 66 Respiratory Rate 16 16 Blood Pressure 108/76 119/73 Pulse Oximetry 96 Oxygen Delivery Method Room Air BMI result Body Mass Index 50.6 Labs Results: 12/12/21 18:00 Medications Medications Current Medications Acetaminophen (Acetaminophen 325 Mg Tablet) 650 mg PO Q6H PRN PRN Reason: Headache/Pain Mild Scale (1-3) Last Admin: 12/12/21 21:50 Dose: 650 mg Al Hydroxide/Mg Hydroxide (Magnesium Hydrox/Alum Hydrox 30 Ml Oral.Susp) 30 ml PO Q6H PRN PRN Reason: Heartburn/Nausea Cefuroxime Axetil (Cefuroxime Axetil 250 Mg Tablet) 250 mg PO Q12H LACEY Stop: 12/18/21 19:59 Last Admin: 12/17/21 20:24 Dose: 250 mg Hydroxyzine HCl (Hydroxyzine Hcl 25 Mg Tablet) 25 mg PO Q6H PRN PRN Reason: Anxiety Last Admin: 12/16/21 21:01 Dose: 25 mg Magnesium Hydroxide (Milk Of Magnesia 30 Ml Oral.Susp) 30 ml PO DAILY PRN PRN Reason: Constipation Quetiapine Fumarate (Quetiapine Fumarate 50 Mg Tablet) 50 mg PO Q6H PRN PRN Reason: agitation Trazodone HCl (Trazodone Hcl 50 Mg Tablet) 50 mg PO BEDTIME PRN PRN Reason: Insomnia Last Admin: 12/16/21 21:01 Dose: 50 mg Trazodone HCl (Trazodone Hcl 50 Mg Tablet) 50 mg PO TID PRN PRN Reason: anxiety/agitation Allergies Allergies Allergy/AdvReac Type Severity Reaction Status Date / Time No Known Allergies Allergy Verified 12/10/21 14:27 Assessment & Plan Assessment & Plan (1) Delirium superimposed on dementia: Status: Acute Code(s): F05 - Delirium due to known physiological condition (2) Alzheimer's dementia with behavioral disturbance: Status: Acute Code(s): G30.9 - Alzheimer's disease, unspecified; F02.81 - Dementia in other diseases classified elsewhere with behavioral disturbance Plan Patient with alzheimer's dementia (diagnosed 2 years ago) admitted to psychiatry being consulted on for medical H&P. 1-Alzheimer's dementia -Hematology and chemistries normal except for midly elevated bilirubin. Will recheck CMP -Also recommend rechecking UA with reflex culture to rule out UTI given altered mental status more recently. -If no recent head ct, would recommend ordering this to rule out structural pathology that could be contributing to her AMS -Continue plan per psychiatry. 2-Recurrent UTI -Psych admission note mentions patient on daily macrobid. She should continue this for prophylaxis if taken at home Plan: At this moment we will not start any antipsychotics since there has not been escalation of violence or gross psychotic symptoms 12/17: Continue current regimen and plans 12/18: Continue current regimen and plans. Encourage food and fluid intake I spent minutes with the patient and/or on the patient floor today, greater than?50% of which was spent counseling/coordinating care. Reason for contiued inpatient stay Substantial Risk for: inability to function
[2021-12-18 11:43] LABS: Anion Gap 16 (12-20); Blood Urea Nitrogen 18 mg/dL (9-16); Calcium 9.6 mg/dL (8.4-10.2); Carbon Dioxide 30 mmol/L (22-29); Chloride 102 mmol/L (96-108); Creatinine Clr Calc Pharmacy 87.7; Estimated Glomerular Filt Rate > 60; Glucose Random 131 mg/dL (60-115); Potassium 3.7 mmol/L (3.3-5.1); Sodium 144 mmol/L (135-145)
[2021-12-18 18:00] VITALS: RESP 16
[2021-12-19 07:30] VITALS: BP 126/66; PULSE 70; RESP 15; TEMP 36.3; O2SAT 93
--- NOTE | 2021-12-19 10:31 | MHC.CLN ---
F/U STAFF REPORTS VARIABLE INTAKE AT MEALS. DIET=REGULAR. ENSURE TID PROVIDES ADDITIONAL 1050 KCALS, 60 G PROTEIN. PATIENT WITH EXTREME OBESITY, BMI=50.7. CONTINUE TO ENCOURAGE INTAKE AND MEALS AND SUPPLEMENT. RD TO FOLLOW WEEKLY.
--- NOTE | 2021-12-19 12:59 | HO.PSYCHPN ---
Subjective Subjective Date of Service: 12/19/21 Reason For Visit: Major Neurocongnitive disturbance due to medical c Interim History: The nursing staff reported no changes in her mental state, she remains very confused with poor p.o. intake. The staff has not is the patient likes to drink bottle water. The manager social responsibility has worked regarding placement and apparently her [facility] application still in process. On interview the patient denies new symptoms she looks pleasantly confused. Mental Status Exam Mental Status Exam Patient Appearance: Well Grooomed Patient Orientation: Person Level of Consciousness: Awake Patient Behavior: Passive Mood Description: Withdrawn Affect Description: Labile Patient Cognition Impaired: Yes Ability to Follow Directions: Fair Speech Pattern: Clear Hallucinations: None Delusions: Not Present Thought Process: Illogical and Distracted Thought Content: positive for [place] and positive for Poverty of Content Judgement: Poor Diagnostics Vital Signs (24Hr): Vital Signs - 24 hr 12/18/21 18:00 12/19/21 07:30 Temperature 97.3 F Pulse Rate 70 Respiratory Rate 16 15 Blood Pressure 126/66 Pulse Oximetry 93 Oxygen Delivery Method Room Air BMI result Body Mass Index 50.6 Labs Results: 12/18/21 10:35 Labs: Laboratory Results - last 48 hr 12/18/21 10:35 Sodium 144 Potassium 3.7 Chloride 102 Carbon Dioxide 30 H Anion Gap 16 BUN 18 H Creatinine 0.80 Estim Creat Clear Calc 87.7 Estimated GFR > 60 Random Glucose 131 H Calcium 9.6 Medications Medications Current Medications Acetaminophen (Acetaminophen 325 Mg Tablet) 650 mg PO Q6H PRN PRN Reason: Headache/Pain Mild Scale (1-3) Last Admin: 12/12/21 21:50 Dose: 650 mg Al Hydroxide/Mg Hydroxide (Magnesium Hydrox/Alum Hydrox 30 Ml Oral.Susp) 30 ml PO Q6H PRN PRN Reason: Heartburn/Nausea Hydroxyzine HCl (Hydroxyzine Hcl 25 Mg Tablet) 25 mg PO Q6H PRN PRN Reason: Anxiety Last Admin: 12/16/21 21:01 Dose: 25 mg Magnesium Hydroxide (Milk Of Magnesia 30 Ml Oral.Susp) 30 ml PO DAILY PRN PRN Reason: Constipation Quetiapine Fumarate (Quetiapine Fumarate 50 Mg Tablet) 50 mg PO Q6H PRN PRN Reason: agitation Trazodone HCl (Trazodone Hcl 50 Mg Tablet) 50 mg PO BEDTIME PRN PRN Reason: Insomnia Last Admin: 12/16/21 21:01 Dose: 50 mg Trazodone HCl (Trazodone Hcl 50 Mg Tablet) 50 mg PO TID PRN PRN Reason: anxiety/agitation Allergies Allergies Allergy/AdvReac Type Severity Reaction Status Date / Time No Known Allergies Allergy Verified 12/10/21 14:27 Assessment & Plan Assessment & Plan (1) Delirium superimposed on dementia: Status: Acute Code(s): F05 - Delirium due to known physiological condition (2) Alzheimer's dementia with behavioral disturbance: Status: Acute Code(s): G30.9 - Alzheimer's disease, unspecified; F02.81 - Dementia in other diseases classified elsewhere with behavioral disturbance Plan Patient with alzheimer's dementia (diagnosed 2 years ago) admitted to psychiatry being consulted on for medical H&P. 1-Alzheimer's dementia -Hematology and chemistries normal except for midly elevated bilirubin. Will recheck CMP -Also recommend rechecking UA with reflex culture to rule out UTI given altered mental status more recently. -If no recent head ct, would recommend ordering this to rule out structural pathology that could be contributing to her AMS -Continue plan per psychiatry. 2-Recurrent UTI -Psych admission note mentions patient on daily macrobid. She should continue this for prophylaxis if taken at home Plan: At this moment we will not start any antipsychotics since there has not been escalation of violence or gross psychotic symptoms Placement I spent ___20___ minutes with the patient and/or on the patient floor today, greater than?50% of which was spent counseling/coordinating care. Reason for contiued inpatient stay Substantial Risk for: inability to function, rapid decompensation and med/psych decompensation
[2021-12-19 18:00] VITALS: BP 138/67; PULSE 72; RESP 16; TEMP 36.4; O2SAT 95
[2021-12-19] MEDS: traZODone HCL 50 MG TABLET PO (21:30)
[2021-12-19] MEDS: QUEtiapine Fumarate 50 MG TABLET PO (21:31)
[2021-12-19] MEDS: nitrofurantoin macrocrystaL 50 MG CAPSULE 100 MG PO (21:31)
[2021-12-20 08:30] VITALS: BP 142/63; PULSE 73; RESP 18; TEMP 36.6; O2SAT 97
--- NOTE | 2021-12-20 11:45 | P.PNPSI_ITS ---
Subjective Subjective Date of Service: 12/20/21 Reason For Visit: Major Neurocongnitive disturbance due to medical c Subjective Notes: Conditional Voluntary Interim History: the nursing staff reported the patient remains with poor intake even though her vital signs are stable. She slept very well with trazodone and Seroquel at night. On interview the patient denies new symptoms she looks confused but easily redirectable and pleasant. Mental Status Exam Mental Status Exam Patient Appearance: Well Grooomed Patient Orientation: Person and Situation Level of Consciousness: Awake Patient Behavior: Appropriate Mood Description: Constricted Affect Description: Calm Patient Cognition Impaired: Yes Ability to Follow Directions: Good Speech Pattern: Clear Hallucinations: None Delusions: Not Present Thought Process: Distracted Thought Content: positive for Circumstantial Diagnostics Vital Signs (24Hr): Vital Signs - 24 hr 12/19/21 18:00 12/20/21 08:30 Temperature 97.6 F 97.9 F Pulse Rate 72 73 Respiratory Rate 16 18 Blood Pressure 138/67 142/63 H Pulse Oximetry 95 97 Oxygen Delivery Method Room Air Room Air BMI result Body Mass Index 50.6 Labs Results: 12/18/21 10:35 Medications Medications Current Medications Acetaminophen (Acetaminophen 325 Mg Tablet) 650 mg PO Q6H PRN PRN Reason: Headache/Pain Mild Scale (1-3) Last Admin: 12/12/21 21:50 Dose: 650 mg Al Hydroxide/Mg Hydroxide (Magnesium Hydrox/Alum Hydrox 30 Ml Oral.Susp) 30 ml PO Q6H PRN PRN Reason: Heartburn/Nausea Hydroxyzine HCl (Hydroxyzine Hcl 25 Mg Tablet) 25 mg PO Q6H PRN PRN Reason: Anxiety Last Admin: 12/16/21 21:01 Dose: 25 mg Magnesium Hydroxide (Milk Of Magnesia 30 Ml Oral.Susp) 30 ml PO DAILY PRN PRN Reason: Constipation Nitrofurantoin Macrocrystals (Nitrofurantoin Macrocrystal 50 Mg Capsule) 100 mg PO BEDTIME LACEY Last Admin: 12/19/21 21:31 Dose: 100 mg Quetiapine Fumarate (Quetiapine Fumarate 50 Mg Tablet) 50 mg PO Q6H PRN PRN Reason: agitation Last Admin: 12/19/21 21:31 Dose: 50 mg Trazodone HCl (Trazodone Hcl 50 Mg Tablet) 50 mg PO BEDTIME PRN PRN Reason: Insomnia Last Admin: 12/19/21 21:30 Dose: 50 mg Trazodone HCl (Trazodone Hcl 50 Mg Tablet) 50 mg PO TID PRN PRN Reason: anxiety/agitation Allergies Allergies Allergy/AdvReac Type Severity Reaction Status Date / Time No Known Allergies Allergy Verified 12/10/21 14:27 Assessment & Plan Assessment & Plan (1) Delirium superimposed on dementia: Status: Acute Code(s): F05 - Delirium due to known physiological condition (2) Alzheimer's dementia with behavioral disturbance: Status: Acute Code(s): G30.9 - Alzheimer's disease, unspecified; F02.81 - Dementia in other diseases classified elsewhere with behavioral disturbance Plan Patient with alzheimer's dementia (diagnosed 2 years ago) admitted to psychiatry being consulted on for medical H&P. 1-Alzheimer's dementia -Hematology and chemistries normal except for midly elevated bilirubin. Will re check CMP -Also recommend rechecking UA with reflex culture to rule out UTI given altered mental status more recently. -If no recent head ct, would recommend ordering this to rule out structural path ology that could be contributing to her AMS -Continue plan per psychiatry. 2-Recurrent UTI -Psych admission note mentions patient on daily macrobid. She should continue this for prophylaxis if taken at home Plan: At this moment we will not start any antipsychotics since there has not been escalation of violence or gross psychotic symptoms Placement I spent minutes with the patient and/or on the patient floor today, greater than?50% of which was spent counseling/coordinating care. Reason for contiued inpatient stay Substantial Risk for: inability to function, rapid decompensation and med/psych decompensation
[2021-12-20 18:00] VITALS: BP 113/88; PULSE 76; RESP 16; TEMP 36.4; O2SAT 95
[2021-12-20] MEDS: nitrofurantoin macrocrystaL 50 MG CAPSULE 100 MG PO (20:33)
[2021-12-20] MEDS: traZODone HCL 50 MG TABLET PO ×2 (20:34→23:43)
[2021-12-20] MEDS: hydrOXYzine HCL 25 MG TABLET PO (23:43)
[2021-12-21 08:00] VITALS: BP 110/80; PULSE 80; RESP 17; TEMP 35.7; O2SAT 98
--- NOTE | 2021-12-21 13:02 | P.PNPSI_ITS ---
Subjective Subjective Date of Service: 12/21/21 Reason For Visit: Major Neurocongnitive disturbance due to medical c Subjective Notes: Conditional Voluntary Interim History: The nursing staff reported that the patient did not feed herself in the morning and she ate more after 13:00. She needed trazodone p.r.n. twice and she was slightly irritable in the evening. The social service manager reports that the family [facility] to [facility] to a [facility] facility. On interview the patient is pleasantly confused. Mental Status Exam Mental Status Exam Patient Appearance: Appropriate Patient Orientation: Person and Situation Level of Consciousness: Awake Patient Behavior: Cooperative Mood Description: Withdrawn Affect Description: Withdrawn Patient Cognition Impaired: Yes Ability to Follow Directions: Fair Speech Pattern: Impoverished Hallucinations: None Delusions: Not Present Thought Process: Illogical Thought Content: positive for [place] and positive for Poverty of Content Judgement: Poor Diagnostics Vital Signs (24Hr): Vital Signs - 24 hr 12/20/21 18:00 12/21/21 08:00 Temperature 97.6 F 96.2 F L Pulse Rate 76 80 Respiratory Rate 16 17 Blood Pressure 113/88 110/80 Pulse Oximetry 95 98 Oxygen Delivery Method Room Air Room Air BMI result Body Mass Index 50.6 Labs Results: 12/18/21 10:35 Medications Medications Current Medications Acetaminophen (Acetaminophen 325 Mg Tablet) 650 mg PO Q6H PRN PRN Reason: Headache/Pain Mild Scale (1-3) Last Admin: 12/12/21 21:50 Dose: 650 mg Al Hydroxide/Mg Hydroxide (Magnesium Hydrox/Alum Hydrox 30 Ml Oral.Susp) 30 ml PO Q6H PRN PRN Reason: Heartburn/Nausea Hydroxyzine HCl (Hydroxyzine Hcl 25 Mg Tablet) 25 mg PO Q6H PRN PRN Reason: Anxiety Last Admin: 12/20/21 23:43 Dose: 25 mg Magnesium Hydroxide (Milk Of Magnesia 30 Ml Oral.Susp) 30 ml PO DAILY PRN PRN Reason: Constipation Nitrofurantoin Macrocrystals (Nitrofurantoin Macrocrystal 50 Mg Capsule) 100 mg PO BEDTIME LACEY Last Admin: 12/20/21 20:33 Dose: 100 mg Quetiapine Fumarate (Quetiapine Fumarate 50 Mg Tablet) 50 mg PO Q6H PRN PRN Reason: agitation Last Admin: 12/19/21 21:31 Dose: 50 mg Trazodone HCl (Trazodone Hcl 50 Mg Tablet) 50 mg PO BEDTIME PRN PRN Reason: Insomnia Last Admin: 12/20/21 23:43 Dose: 50 mg Trazodone HCl (Trazodone Hcl 50 Mg Tablet) 50 mg PO TID PRN PRN Reason: anxiety/agitation Allergies Allergies Allergy/AdvReac Type Severity Reaction Status Date / Time No Known Allergies Allergy Verified 12/10/21 14:27 Assessment & Plan Assessment & Plan (1) Delirium superimposed on dementia: Status: Acute Code(s): F05 - Delirium due to known physiological condition (2) Alzheimer's dementia with behavioral disturbance: Status: Acute Code(s): G30.9 - Alzheimer's disease, unspecified; F02.81 - Dementia in other diseases classified elsewhere with behavioral disturbance Plan Patient with alzheimer's dementia (diagnosed 2 years ago) admitted to psychiatry being consulted on for medical H&P. 1-Alzheimer's dementia -Hematology and chemistries normal except for midly elevated bilirubin. Will recheck CMP -Also recommend rechecking UA with reflex culture to rule out UTI given altered mental status more recently. -If no recent head ct, would recommend ordering this to rule out structural pathology that could be contributing to her AMS -Continue plan per psychiatry. 2-Recurrent UTI -Psych admission note mentions patient on daily macrobid. She should continue this for prophylaxis if taken at home Plan: At this moment we will not start any antipsychotics since there has not been escalation of violence or gross psychotic symptoms Placement I spent ___20___ minutes with the patient and/or on the patient floor today, gre ater than?50% of which was spent counseling/coordinating care. Reason for contiued inpatient stay Substantial Risk for: inability to function, rapid decompensation and med/psych decompensation
[2021-12-21 18:00] VITALS: BP 104/69; PULSE 67; RESP 16; TEMP 36.3; O2SAT 93
[2021-12-21] MEDS: nitrofurantoin macrocrystaL 50 MG CAPSULE 100 MG PO (20:25)
[2021-12-22 06:00] VITALS: BP 122/56; PULSE 59; RESP 14; TEMP 36.1; O2SAT 96
[2021-12-22 07:00] VITALS: BMI 50.1
--- NOTE | 2021-12-22 12:39 | P.PNPSI_ITS ---
Subjective Subjective Date of Service: 12/22/21 Reason For Visit: Major Neurocongnitive disturbance due to medical c Subjective Notes: Conditional Voluntary Interim History: the nursing staff reported the patient slept well last night. The staff has noticed that the patient is more active after lunch, she is sleepy during the day. We have a family meeting today with the family and her children and advanced directives were discussed and approved. Also we discussed that there was no need of aggressive medication changes only p.r.n. trazodone. On interview the patient remains pleasantly confused. Mental Status Exam Mental Status Exam Patient Appearance: Well Grooomed Patient Orientation: Person and Situation Level of Consciousness: Awake Patient Behavior: Guarded Mood Description: Withdrawn Affect Description: Labile Patient Cognition Impaired: Yes Ability to Follow Directions: Fair Speech Pattern: Clear Hallucinations: None Delusions: Not Present Thought Process: Distracted Thought Content: positive for [place] and positive for Poverty of Content Judgement: Poor Diagnostics Vital Signs (24Hr): Vital Signs - 24 hr 12/21/21 18:00 12/22/21 06:00 Temperature 97.4 F 96.9 F Pulse Rate 67 59 Respiratory Rate 16 14 Blood Pressure 104/69 122/56 L Pulse Oximetry 93 96 Oxygen Delivery Method Room Air Room Air BMI result Body Mass Index 50.6 Labs Results: 12/18/21 10:35 Medications Medications Current Medications Acetaminophen (Acetaminophen 325 Mg Tablet) 650 mg PO Q6H PRN PRN Reason: Headache/Pain Mild Scale (1-3) Last Admin: 12/12/21 21:50 Dose: 650 mg Al Hydroxide/Mg Hydroxide (Magnesium Hydrox/Alum Hydrox 30 Ml Oral.Susp) 30 ml PO Q6H PRN PRN Reason: Heartburn/Nausea Hydroxyzine HCl (Hydroxyzine Hcl 25 Mg Tablet) 25 mg PO Q6H PRN PRN Reason: Anxiety Last Admin: 12/20/21 23:43 Dose: 25 mg Magnesium Hydroxide (Milk Of Magnesia 30 Ml Oral.Susp) 30 ml PO DAILY PRN PRN Reason: Constipation Nitrofurantoin Macrocrystals (Nitrofurantoin Macrocrystal 50 Mg Capsule) 100 mg PO BEDTIME LACEY Last Admin: 12/21/21 20:25 Dose: 100 mg Quetiapine Fumarate (Quetiapine Fumarate 50 Mg Tablet) 50 mg PO Q6H PRN PRN Reason: agitation Last Admin: 12/19/21 21:31 Dose: 50 mg Trazodone HCl (Trazodone Hcl 50 Mg Tablet) 50 mg PO BEDTIME PRN PRN Reason: Insomnia Last Admin: 12/20/21 23:43 Dose: 50 mg Trazodone HCl (Trazodone Hcl 50 Mg Tablet) 50 mg PO TID PRN PRN Reason: anxiety/agitation Allergies Allergies Allergy/AdvReac Type Severity Reaction Status Date / Time No Known Allergies Allergy Verified 12/10/21 14:27 Assessment & Plan Assessment & Plan (1) Delirium superimposed on dementia: Status: Acute Code(s): F05 - Delirium due to known physiological condition (2) Alzheimer's dementia with behavioral disturbance: Status: Acute Code(s): G30.9 - Alzheimer's disease, unspecified; F02.81 - Dementia in other diseases classified elsewhere with behavioral disturbance Plan Patient with alzheimer's dementia (diagnosed 2 years ago) admitted to psychiatry being consulted on for medical H&P. 1-Alzheimer's dementia -Hematology and chemistries normal except for midly elevated bilirubin. Will recheck CMP -Also recommend rechecking UA with reflex culture to rule out UTI given altered mental status more recently. -If no recent head ct, would recommend ordering this to rule out structural pathology that could be contributing to her AMS -Continue plan per psychiatry. 2-Recurrent UTI -Psych admission note mentions patient on daily macrobid. She should continue this for prophylaxis if taken at home Plan: At this moment we will not start any antipsychotics since there has not been escalation of violence or gross psychotic symptoms Placement I spent ___20___ minutes with the patient and/or on the patient floor today, greater than?50% of which was spent counseling/coordinating care. Reason for contiued inpatient stay Substantial Risk for: inability to function, rapid decompensation and med/psych decompensation
[2021-12-22 18:00] VITALS: BP 127/76; PULSE 73; RESP 17; TEMP 35.8; O2SAT 99
[2021-12-22] MEDS: Acetaminophen 325 MG TABLET 650 MG PO (20:01)
[2021-12-22] MEDS: nitrofurantoin macrocrystaL 50 MG CAPSULE 100 MG PO (20:02)
[2021-12-22] MEDS: traZODone HCL 50 MG TABLET PO (20:03)
[2021-12-23 07:30] VITALS: BP 128/67; PULSE 84; RESP 14; TEMP 35.7; O2SAT 96
--- NOTE | 2021-12-23 12:18 | MHC.CLN ---
F/U STAFF REPORTS VARIABLE INTAKE AT MEALS. DIET=REGULAR. ENSURE TID PROVIDES ADDITIONAL 1050 KCALS, 60 G PROTEIN. PATIENT WITH EXTREME OBESITY, BMI=50.1. CONTINUE TO ENCOURAGE INTAKE AND MEALS AND SUPPLEMENT. RD TO FOLLOW WEEKLY.
--- NOTE | 2021-12-23 13:52 | P.PNPSI_ITS ---
Subjective Subjective Date of Service: 12/23/21 Reason For Visit: Major Neurocongnitive disturbance due to medical c Subjective Notes: Conditional Voluntary Interim History: the nursing staff reported the patient was more active in the morning but she became irritable later in the day. She was able to eat her supper and she needed p.r.n. trazodone and Tylenol at night. The staff has noticed that she has problems sleeping at times and trazodone works well for her. We will start trazodone 100 mg p.o. q.h.s.. On interview the patient looks pleasantly confused. Mental Status Exam Mental Status Exam Patient Appearance: Appropriate Patient Orientation: Person Level of Consciousness: Appropriate Patient Behavior: Guarded and Passive Mood Description: Withdrawn Affect Description: Labile Patient Cognition Impaired: Yes Ability to Follow Directions: Good Speech Pattern: Clear Hallucinations: None Delusions: Not Present Thought Process: Distracted Thought Content: positive for Circumstantial Judgement: Poor Diagnostics Vital Signs (24Hr): Vital Signs - 24 hr 12/22/21 18:00 12/23/21 07:30 Temperature 96.5 F L 96.2 F L Pulse Rate 73 84 Respiratory Rate 17 14 Blood Pressure 127/76 128/67 Pulse Oximetry 99 96 Oxygen Delivery Method Room Air Room Air BMI result Body Mass Index 50.1 Labs Results: 12/18/21 10:35 Medications Medications Current Medications Acetaminophen (Acetaminophen 325 Mg Tablet) 650 mg PO Q6H PRN PRN Reason: Headache/Pain Mild Scale (1-3) Last Admin: 12/22/21 20:01 Dose: 650 mg Al Hydroxide/Mg Hydroxide (Magnesium Hydrox/Alum Hydrox 30 Ml Oral.Susp) 30 ml PO Q6H PRN PRN Reason: Heartburn/Nausea Hydroxyzine HCl (Hydroxyzine Hcl 25 Mg Tablet) 25 mg PO Q6H PRN PRN Reason: Anxiety Last Admin: 12/20/21 23:43 Dose: 25 mg Magnesium Hydroxide (Milk Of Magnesia 30 Ml Oral.Susp) 30 ml PO DAILY PRN PRN Reason: Constipation Nitrofurantoin Macrocrystals (Nitrofurantoin Macrocrystal 50 Mg Capsule) 100 mg PO BEDTIME LACEY Last Admin: 12/22/21 20:02 Dose: 100 mg Quetiapine Fumarate (Quetiapine Fumarate 50 Mg Tablet) 50 mg PO Q6H PRN PRN Reason: agitation Last Admin: 12/19/21 21:31 Dose: 50 mg Trazodone HCl (Trazodone Hcl 50 Mg Tablet) 50 mg PO BEDTIME PRN PRN Reason: Insomnia Last Admin: 12/20/21 23:43 Dose: 50 mg Trazodone HCl (Trazodone Hcl 50 Mg Tablet) 50 mg PO TID PRN PRN Reason: anxiety/agitation Last Admin: 12/22/21 20:03 Dose: 50 mg Allergies Allergies Allergy/AdvReac Type Severity Reaction Status Date / Time No Known Allergies Allergy Verified 12/10/21 14:27 Assessment & Plan Assessment & Plan (1) Delirium superimposed on dementia: Status: Acute Code(s): F05 - Delirium due to known physiological condition (2) Alzheimer's dementia with behavioral disturbance: Status: Acute Code(s): G30.9 - Alzheimer's disease, unspecified; F02.81 - Dementia in other diseases c lassified elsewhere with behavioral disturbance Plan Patient with alzheimer's dementia (diagnosed 2 years ago) admitted to psychiatry being consulted on for medical H&P. 1-Alzheimer's dementia -Hematology and chemistries normal except for midly elevated bilirubin. Will recheck CMP -Also recommend rechecking UA with reflex culture to rule out UTI given altered mental status more recently. -If no recent head ct, would recommend ordering this to rule out structural pathology that could be contributing to her AMS -Continue plan per psychiatry. 2-Recurrent UTI -Psych admission note mentions patient on daily macrobid. She should continue this for prophylaxis if taken at home Plan: At this moment we will not start any antipsychotics since there has not been escalation of violence or gross psychotic symptoms Placement Start trazodone 100 mg p.o. q.h.s. I spent __20____ minutes with the patient and/or on the patient floor today, greater than?50% of which was spent counseling/coordinating care. Reason for contiued inpatient stay Substantial Risk for: inability to function, rapid decompensation and med/psych decompensation
[2021-12-23 18:00] VITALS: BP 126/63; PULSE 67; RESP 16; TEMP 36.6; O2SAT 98
[2021-12-23] MEDS: nitrofurantoin macrocrystaL 50 MG CAPSULE 100 MG PO (21:17)
[2021-12-23] MEDS: traZODone HCL 100 MG TABLET PO (21:23)
--- NOTE | 2021-12-24 08:30 | HO.PSYCHPN ---
Subjective Subjective Date of Service: 12/24/21 Reason For Visit: Major Neurocongnitive disturbance due to medical c Subjective Notes: Conditional Voluntary Interim History: The nursing staff reported that the patient has been less irritable, she took a shower yesterday. She slept all night long. On interview the patient looks pleasantly confused, easily redirectable. Mental Status Exam Mental Status Exam Patient Appearance: Well Grooomed Patient Orientation: Person and Situation Level of Consciousness: Awake Patient Behavior: Cooperative Mood Description: Calm Affect Description: Constricted Patient Cognition Impaired: Yes Ability to Follow Directions: Good Speech Pattern: Clear Hallucinations: None Delusions: Not Present Thought Process: Distracted Thought Content: positive for [place] Judgement: Fair Diagnostics Vital Signs (24Hr): Vital Signs - 24 hr 12/23/21 18:00 Temperature 97.8 F Pulse Rate 67 Respiratory Rate 16 Blood Pressure 126/63 Pulse Oximetry 98 Oxygen Delivery Method Room Air BMI result Body Mass Index 50.1 Labs Results: 12/18/21 10:35 Medications Medications Current Medications Acetaminophen (Acetaminophen 325 Mg Tablet) 650 mg PO Q6H PRN PRN Reason: Headache/Pain Mild Scale (1-3) Last Admin: 12/22/21 20:01 Dose: 650 mg Al Hydroxide/Mg Hydroxide (Magnesium Hydrox/Alum Hydrox 30 Ml Oral.Susp) 30 ml PO Q6H PRN PRN Reason: Heartburn/Nausea Hydroxyzine HCl (Hydroxyzine Hcl 25 Mg Tablet) 25 mg PO Q6H PRN PRN Reason: Anxiety Last Admin: 12/20/21 23:43 Dose: 25 mg Magnesium Hydroxide (Milk Of Magnesia 30 Ml Oral.Susp) 30 ml PO DAILY PRN PRN Reason: Constipation Nitrofurantoin Macrocrystals (Nitrofurantoin Macrocrystal 50 Mg Capsule) 100 mg PO BEDTIME LACEY Last Admin: 12/23/21 21:17 Dose: 100 mg Quetiapine Fumarate (Quetiapine Fumarate 50 Mg Tablet) 50 mg PO Q6H PRN PRN Reason: agitation Last Admin: 12/19/21 21:31 Dose: 50 mg Trazodone HCl (Trazodone Hcl 50 Mg Tablet) 50 mg PO BEDTIME PRN PRN Reason: Insomnia Last Admin: 12/20/21 23:43 Dose: 50 mg Trazodone HCl (Trazodone Hcl 50 Mg Tablet) 50 mg PO TID PRN PRN Reason: anxiety/agitation Last Admin: 12/22/21 20:03 Dose: 50 mg Trazodone HCl (Trazodone Hcl 100 Mg Tablet) 100 mg PO BEDTIME LACEY Last Admin: 12/23/21 21:23 Dose: 100 mg Allergies Allergies Allergy/AdvReac Type Severity Reaction Status Date / Time No Known Allergies Allergy Verified 12/10/21 14:27 Assessment & Plan Assessment & Plan (1) Delirium superimposed on dementia: Status: Acute Code(s): F05 - Delirium due to known physiological condition (2) Alzheimer's dementia with behavioral disturbance: Status: Acute Code(s): G30.9 - Alzheimer's disease, unspecified; F02.81 - Dementia in other diseases classified elsewhere, unspecified severity, with behavioral disturbance Plan Patient with alzheimer's dementia (diagnosed 2 years ago) admitted to psychiatry being consulted on for medical H&P. 1-Alzheimer's dementia -Hematology and chemistries normal except for midly elevated bilirubin. Will recheck CMP -Also recommend rechecking UA with reflex culture to rule out UTI given altered mental status more recently. -If no recent head ct, would recommend ordering this to rule out structural pathology that could be contributing to her AMS -Continue plan per psychiatry. 2-Recurrent UTI -Psych admission note mentions patient on daily macrobid. She should continue this for prophylaxis if taken at home Plan: At this moment we will not start any antipsychotics since there has not been escalation of violence or gross psychotic symptoms Placement Start trazodone 100 mg p.o. q.h.s. I spent __20____ minutes with the patient and/or on the patient floor today, greater than?50% of which was spent counseling/coordinating care. Reason for contiued inpatient stay Substantial Risk for: inability to function, rapid decompensation and med/psych decompensation
[2021-12-24 11:05] VITALS: BP 123/70; PULSE 64; RESP 16; TEMP 36.3; O2SAT 99
[2021-12-24 18:00] VITALS: BP 119/69; PULSE 62; RESP 16; TEMP 36.1; O2SAT 97
[2021-12-24] MEDS: nitrofurantoin macrocrystaL 50 MG CAPSULE 100 MG PO (20:33)
[2021-12-24] MEDS: Acetaminophen 325 MG TABLET 650 MG PO (20:33)
[2021-12-24] MEDS: traZODone HCL 100 MG TABLET PO (20:33)
[2021-12-25 08:00] VITALS: BP 110/71; PULSE 60; RESP 17; TEMP 36; O2SAT 98
--- NOTE | 2021-12-25 10:24 | P.PNPSI_ITS ---
Subjective Subjective Date of Service: 12/25/21 Reason For Visit: Major Neurocongnitive disturbance due to medical c Subjective Notes: Conditional Voluntary Interim History: The nursing staff reported the patient went to sleep at midnight and slept at to 06:00 in the morning. She has been compliant with treatment, confused but redirectable. Mental Status Exam Mental Status Exam Patient Appearance: Well Grooomed Patient Orientation: Person and Situation Level of Consciousness: Awake Patient Behavior: Cooperative Mood Description: Constricted Affect Description: Labile Patient Cognition Impaired: Yes Ability to Follow Directions: Good Speech Pattern: Clear Hallucinations: None Delusions: Paranoid Ideation Thought Process: Illogical Thought Content: positive for [place] Judgement: Poor Diagnostics Vital Signs (24Hr): Vital Signs - 24 hr 12/24/21 11:05 12/24/21 18:00 12/25/21 08:00 Temperature 97.4 F 96.9 F 96.8 F Pulse Rate 64 62 60 Respiratory Rate 16 16 17 Blood Pressure 123/70 119/69 110/71 Pulse Oximetry 99 97 98 Oxygen Delivery Method Room Air Room Air Room Air BMI result Body Mass Index 50.1 Labs Results: 12/18/21 10:35 Medications Medications Current Medications Acetaminophen (Acetaminophen 325 Mg Tablet) 650 mg PO Q6H PRN PRN Reason: Headache/Pain Mild Scale (1-3) Last Admin: 12/24/21 20:33 Dose: 650 mg Al Hydroxide/Mg Hydroxide (Magnesium Hydrox/Alum Hydrox 30 Ml Oral.Susp) 30 ml PO Q6H PRN PRN Reason: Heartburn/Nausea Hydroxyzine HCl (Hydroxyzine Hcl 25 Mg Tablet) 25 mg PO Q6H PRN PRN Reason: Anxiety Last Admin: 12/20/21 23:43 Dose: 25 mg Magnesium Hydroxide (Milk Of Magnesia 30 Ml Oral.Susp) 30 ml PO DAILY PRN PRN Reason: Constipation Nitrofurantoin Macrocrystals (Nitrofurantoin Macrocrystal 50 Mg Capsule) 100 mg PO BEDTIME LACEY Last Admin: 12/24/21 20:33 Dose: 100 mg Quetiapine Fumarate (Quetiapine Fumarate 50 Mg Tablet) 50 mg PO Q6H PRN PRN Reason: agitation Last Admin: 12/19/21 21:31 Dose: 50 mg Trazodone HCl (Trazodone Hcl 50 Mg Tablet) 50 mg PO BEDTIME PRN PRN Reason: Insomnia Last Admin: 12/20/21 23:43 Dose: 50 mg Trazodone HCl (Trazodone Hcl 50 Mg Tablet) 50 mg PO TID PRN PRN Reason: anxiety/agitation Last Admin: 12/22/21 20:03 Dose: 50 mg Trazodone HCl (Trazodone Hcl 100 Mg Tablet) 100 mg PO BEDTIME LACEY Last Admin: 12/24/21 20:33 Dose: 100 mg Allergies Allergies Allergy/AdvReac Type Severity Reaction Status Date / Time No Known Allergies Allergy Verified 12/10/21 14:27 Assessment & Plan Assessment & Plan (1) Delirium superimposed on dementia: Status: Acute Code(s): F05 - Delirium due to known physiological condition (2) Alzheimer's dementia with behavioral disturbance: Status: Acute Code(s): G30.9 - Alzheimer's disease, unspecified; F02.81 - Dementia in other diseases classified elsewhere, unspecified severity, with behavioral disturbance Plan Patient with alzheimer's dementia (diagnosed 2 years ago) admitted to psychiatry being consulted on for medical H&P. 1-Alzheimer's dementia -Hematology and chemistries normal except for midly elevated bilirubin. Will recheck CMP -Also recommend rechecking UA with reflex culture to rule out UTI given altered mental status more recently. -If no recent head ct, would recommend ordering this to rule out structural pathology that could be contributing to her AMS -Continue plan per psychiatry. 2-Recurrent UTI -Psych admission note mentions patient on daily macrobid. She should continue this for prophylaxis if taken at home Plan: At this moment we will not start any antipsychotics since there has not been escalation of violence or gross psychotic symptoms Placement Start trazodone 100 mg p.o. q.h.s. I spent __20____ minutes with the patient and/or on the patient floor today, greater than?50% of which was spent counseling/coordinating care. Reason for contiued inpatient stay Substantial Risk for: inability to function, rapid decompensation and med/psych decompensation
[2021-12-25 18:00] VITALS: BP 109/68; PULSE 63; RESP 14; TEMP 36.6; O2SAT 98
[2021-12-26 06:00] VITALS: BP 123/64; PULSE 66; RESP 15; TEMP 36.1; O2SAT 98
--- NOTE | 2021-12-26 14:34 | HO.PSYCHPN ---
Subjective Subjective Date of Service: 12/26/21 Reason For Visit: Major Neurocongnitive disturbance due to medical c Interim History: The nursing staff reported yesterday the patient refused to change her clots that were soiled. She was up up to midnight and she was confused in the morning in an out of other people's room. She had poor p.o. intake and she refuse showers. On interview the patient looks confused but no on distress Mental Status Exam Mental Status Exam Patient Appearance: Well Grooomed Patient Orientation: Person Level of Consciousness: Awake Patient Behavior: Guarded Mood Description: Calm Affect Description: Constricted Patient Cognition Impaired: Yes Ability to Follow Directions: Good Speech Pattern: Clear Hallucinations: None Delusions: Paranoid Ideation Thought Process: Distracted Thought Content: positive for [place] Judgement: Fair Diagnostics Vital Signs (24Hr): Vital Signs - 24 hr 12/25/21 18:00 12/26/21 06:00 Temperature 97.8 F 97.0 F Pulse Rate 63 66 Respiratory Rate 14 15 Blood Pressure 109/68 123/64 Pulse Oximetry 98 98 Oxygen Delivery Method Room Air Room Air BMI result Body Mass Index 50.1 Labs Results: 12/18/21 10:35 Medications Medications Current Medications Acetaminophen (Acetaminophen 325 Mg Tablet) 650 mg PO Q6H PRN PRN Reason: Headache/Pain Mild Scale (1-3) Last Admin: 12/24/21 20:33 Dose: 650 mg Al Hydroxide/Mg Hydroxide (Magnesium Hydrox/Alum Hydrox 30 Ml Oral.Susp) 30 ml PO Q6H PRN PRN Reason: Heartburn/Nausea Hydroxyzine HCl (Hydroxyzine Hcl 25 Mg Tablet) 25 mg PO Q6H PRN PRN Reason: Anxiety Last Admin: 12/20/21 23:43 Dose: 25 mg Magnesium Hydroxide (Milk Of Magnesia 30 Ml Oral.Susp) 30 ml PO DAILY PRN PRN Reason: Constipation Nitrofurantoin Macrocrystals (Nitrofurantoin Macrocrystal 50 Mg Capsule) 100 mg PO BEDTIME LACEY Last Admin: 12/25/21 21:22 Dose: Not Given Quetiapine Fumarate (Quetiapine Fumarate 50 Mg Tablet) 50 mg PO Q6H PRN PRN Reason: agitation Last Admin: 12/19/21 21:31 Dose: 50 mg Trazodone HCl (Trazodone Hcl 50 Mg Tablet) 50 mg PO BEDTIME PRN PRN Reason: Insomnia Last Admin: 12/20/21 23:43 Dose: 50 mg Trazodone HCl (Trazodone Hcl 50 Mg Tablet) 50 mg PO TID PRN PRN Reason: anxiety/agitation Last Admin: 12/22/21 20:03 Dose: 50 mg Trazodone HCl (Trazodone Hcl 100 Mg Tablet) 100 mg PO BEDTIME LACEY Last Admin: 12/25/21 21:22 Dose: Not Given Allergies Allergies Allergy/AdvReac Type Severity Reaction Status Date / Time No Known Allergies Allergy Verified 12/10/21 14:27 Assessment & Plan Assessment & Plan (1) Delirium superimposed on dementia: Status: Acute Code(s): F05 - Delirium due to known physiological condition (2) Alzheimer's dementia with behavioral disturbance: Status: Acute Code(s): G30.9 - Alzheimer's disease, unspecified; F02.81 - Dementia in other diseases classified elsewhere, unspecified severity, with behavioral disturbance Plan Patient with alzheimer's dementia (diagnosed 2 years ago) admitted to psychiatry being consulted on for medical H&P. 1-Alzheimer's dementia -Hematology and chemistries normal except for midly elevated bilirubin. Will recheck CMP -Also recommend rechecking UA with reflex culture to rule out UTI given altered mental status more recently. -If no recent head ct, would recommend ordering this to rule out structural pathology that could be contributing to her AMS -Continue plan per psychiatry. 2-Recurrent UTI -Psych admission note mentions patient on daily macrobid. She should continue this for prophylaxis if taken at home Plan: At this moment we will not start any antipsychotics since there has not been escalation of violence or gross psychotic symptoms Placement Start trazodone 100 mg p.o. q.h.s. I spent ___20___ minutes with the patient and/or on the patient floor today, greater than?50% of which was spent counseling/coordinating care. Reason for contiued inpatient stay Substantial Risk for: inability to function, rapid decompensation and med/psych decompensation
--- NOTE | 2021-12-26 14:51 | HO.PSYCHPN ---
Subjective Subjective Reason For Visit: Major Neurocongnitive disturbance due to medical c Diagnostics Vital Signs (24Hr): Vital Signs - 24 hr 12/25/21 18:00 12/26/21 06:00 Temperature 97.8 F 97.0 F Pulse Rate 63 66 Respiratory Rate 14 15 Blood Pressure 109/68 123/64 Pulse Oximetry 98 98 Oxygen Delivery Method Room Air Room Air BMI result Body Mass Index 50.1 Labs Results: 12/18/21 10:35 Medications Medications Current Medications Acetaminophen (Acetaminophen 325 Mg Tablet) 650 mg PO Q6H PRN PRN Reason: Headache/Pain Mild Scale (1-3) Last Admin: 12/24/21 20:33 Dose: 650 mg Al Hydroxide/Mg Hydroxide (Magnesium Hydrox/Alum Hydrox 30 Ml Oral.Susp) 30 ml PO Q6H PRN PRN Reason: Heartburn/Nausea Hydroxyzine HCl (Hydroxyzine Hcl 25 Mg Tablet) 25 mg PO Q6H PRN PRN Reason: Anxiety Last Admin: 12/20/21 23:43 Dose: 25 mg Magnesium Hydroxide (Milk Of Magnesia 30 Ml Oral.Susp) 30 ml PO DAILY PRN PRN Reason: Constipation Nitrofurantoin Macrocrystals (Nitrofurantoin Macrocrystal 50 Mg Capsule) 100 mg PO BEDTIME LACEY Last Admin: 12/25/21 21:22 Dose: Not Given Quetiapine Fumarate (Quetiapine Fumarate 50 Mg Tablet) 50 mg PO Q6H PRN PRN Reason: agitation Last Admin: 12/19/21 21:31 Dose: 50 mg Trazodone HCl (Trazodone Hcl 50 Mg Tablet) 50 mg PO BEDTIME PRN PRN Reason: Insomnia Last Admin: 12/20/21 23:43 Dose: 50 mg Trazodone HCl (Trazodone Hcl 50 Mg Tablet) 50 mg PO TID PRN PRN Reason: anxiety/agitation Last Admin: 12/22/21 20:03 Dose: 50 mg Trazodone HCl (Trazodone Hcl 100 Mg Tablet) 100 mg PO BEDTIME LACEY Last Admin: 12/25/21 21:22 Dose: Not Given Allergies Allergies Allergy/AdvReac Type Severity Reaction Status Date / Time No Known Allergies Allergy Verified 12/10/21 14:27 Assessment & Plan Assessment & Plan (1) Delirium superimposed on dementia: Status: Acute Code(s): F05 - Delirium due to known physiological condition (2) Alzheimer's dementia with behavioral disturbance: Status: Acute Code(s): G30.9 - Alzheimer's disease, unspecified; F02.81 - Dementia in other diseases classified elsewhere, unspecified severity, with behavioral disturbance Plan Patient with alzheimer's dementia (diagnosed 2 years ago) admitted to psychiatry being consulted on for medical H&P. 1-Alzheimer's dementia -Hematology and chemistries normal except for midly elevated bilirubin. Will recheck CMP -Also recommend rechecking UA with reflex culture to rule out UTI given altered mental status more recently. -If no recent head ct, would recommend ordering this to rule out structural pathology that could be contributing to her AMS -Continue plan per psychiatry. 2-Recurrent UTI -Psych admission note mentions patient on daily macrobid. She should continue this for prophylaxis if taken at home Plan: At this moment we will not start any antipsychotics since there has not been escalation of violence or gross psychotic symptoms Placement Start trazodone 100 mg p.o. q.h.s. I spent minutes with the patient and/or on the patient floor today, greater than?50% of which was spent counseling/coordinating care.
[2021-12-26 18:00] VITALS: BP 106/75; PULSE 74; RESP 16; TEMP 36.3; O2SAT 97
[2021-12-26] MEDS: nitrofurantoin macrocrystaL 50 MG CAPSULE 100 MG PO (20:16)
[2021-12-26] MEDS: traZODone HCL 100 MG TABLET PO (20:16)
[2021-12-26] MEDS: hydrOXYzine HCL 25 MG TABLET PO (22:58)
[2021-12-26] MEDS: traZODone HCL 50 MG TABLET PO (23:01)
[2021-12-27 07:49] VITALS: BP 109/61; PULSE 68; RESP 16; TEMP 36.5; O2SAT 95
--- NOTE | 2021-12-27 14:18 | HO.PSYCHPN ---
Subjective Subjective Date of Service: 12/27/21 Reason For Visit: Major Neurocongnitive disturbance due to medical c Subjective Notes: Conditional Voluntary Interim History: The nursing staff reported the patient has been hypoactive, she slept poorly and woke up in the middle of the night. On interview the patient reports that she has being okay but she looks very sad and dysphoric. Mental Status Exam Mental Status Exam Patient Appearance: Well Grooomed Patient Orientation: Person and Situation Level of Consciousness: Awake Patient Behavior: Guarded Mood Description: Calm Affect Description: Constricted Patient Cognition Impaired: Yes Ability to Follow Directions: Good Speech Pattern: Clear Hallucinations: None Delusions: Not Present Thought Process: Distracted Judgement: Poor Diagnostics Vital Signs (24Hr): Vital Signs - 24 hr 12/26/21 18:00 12/27/21 07:49 Temperature 97.4 F 97.7 F Pulse Rate 74 68 Respiratory Rate 16 16 Blood Pressure 106/75 109/61 Pulse Oximetry 97 95 Oxygen Delivery Method Room Air Room Air BMI result Body Mass Index 50.1 Labs Results: 12/18/21 10:35 Medications Medications Current Medications Acetaminophen (Acetaminophen 325 Mg Tablet) 650 mg PO Q6H PRN PRN Reason: Headache/Pain Mild Scale (1-3) Last Admin: 12/24/21 20:33 Dose: 650 mg Al Hydroxide/Mg Hydroxide (Magnesium Hydrox/Alum Hydrox 30 Ml Oral.Susp) 30 ml PO Q6H PRN PRN Reason: Heartburn/Nausea Hydroxyzine HCl (Hydroxyzine Hcl 25 Mg Tablet) 25 mg PO Q6H PRN PRN Reason: Anxiety Last Admin: 12/26/21 22:58 Dose: 25 mg Magnesium Hydroxide (Milk Of Magnesia 30 Ml Oral.Susp) 30 ml PO DAILY PRN PRN Reason: Constipation Nitrofurantoin Macrocrystals (Nitrofurantoin Macrocrystal 50 Mg Capsule) 100 mg PO BEDTIME LACEY Last Admin: 12/26/21 20:16 Dose: 100 mg Quetiapine Fumarate (Quetiapine Fumarate 50 Mg Tablet) 50 mg PO Q6H PRN PRN Reason: agitation Last Admin: 12/19/21 21:31 Dose: 50 mg Trazodone HCl (Trazodone Hcl 50 Mg Tablet) 50 mg PO BEDTIME PRN PRN Reason: Insomnia Last Admin: 12/26/21 23:01 Dose: 50 mg Trazodone HCl (Trazodone Hcl 50 Mg Tablet) 50 mg PO TID PRN PRN Reason: anxiety/agitation Last Admin: 12/22/21 20:03 Dose: 50 mg Trazodone HCl (Trazodone Hcl 100 Mg Tablet) 100 mg PO BEDTIME LACEY Last Admin: 12/26/21 20:16 Dose: 100 mg Allergies Allergies Allergy/AdvReac Type Severity Reaction Status Date / Time No Known Allergies Allergy Verified 12/10/21 14:27 Assessment & Plan Assessment & Plan (1) Delirium superimposed on dementia: Status: Acute Code(s): F05 - Delirium due to known physiological condition (2) Alzheimer's dementia with behavioral disturbance: Status: Acute Code(s): G30.9 - Alzheimer's disease, unspecified; F02.81 - Dementia in other diseases classified elsewhere, unspecified severity, with behavioral disturbance Plan Elderly female with cognitive decline admitted for disorganized behavior. Also it was noticed on the crisis assessment that she was violent. While she was in the unit she did not show any behavioral disturbances or violence but she looks confused and dysphoric. Plan 1. Gather collateral information. 2. Use trazodone 100 mg p.o. q.h.s. to target insomnia. 3. Since she has more dysphoric start Remeron 7.5 p.o. q.h.s. I spent __20____ minutes with the patient and/or on the patient floor today, greater than?50% of which was spent counseling/coordinating care. Reason for contiued inpatient stay Substantial Risk for: inability to function, rapid decompensation and med/psych decompensation
[2021-12-27 16:26] VITALS: BP 120/62; PULSE 66; RESP 16; TEMP 36.1; O2SAT 99
[2021-12-27] MEDS: traZODone HCL 100 MG TABLET PO (21:36)
[2021-12-27] MEDS: Mirtazapine 7.5 MG TABLET PO (21:36)
[2021-12-27] MEDS: nitrofurantoin macrocrystaL 50 MG CAPSULE 100 MG PO (21:36)
[2021-12-28 08:00] VITALS: BP 113/61; PULSE 97; RESP 17; TEMP 36.4; O2SAT 98
--- NOTE | 2021-12-28 12:25 | P.PNPSI_ITS ---
Subjective Subjective Date of Service: 12/28/21 Reason For Visit: Major Neurocongnitive disturbance due to medical c Subjective Notes: Conditional Voluntary Interim History: The nursing staff reported the on the she ate only 25% of her meals she slept well with Remeron. She showered yesterday. The patient sometimes becomes more confused probably you due to UTI. The social media senior associate talked with her daughter and they have all the paperwork ready from a skilled application. The daughter will visit facilities for transfer. On interview the patient looks dysphoric but easily redirectable and pleasantly confused. Mental Status Exam Mental Status Exam Patient Appearance: Well Grooomed Patient Orientation: Person and Situation Level of Consciousness: Awake Patient Behavior: Cooperative Mood Description: Suspicious and Withdrawn Affect Description: Constricted Patient Cognition Impaired: Yes Ability to Follow Directions: Good Speech Pattern: Clear Hallucinations: None Delusions: Paranoid Ideation Thought Process: Illogical Thought Content: positive for [place] Judgement: Poor Diagnostics Vital Signs (24Hr): Vital Signs - 24 hr 12/27/21 16:26 12/28/21 08:00 Temperature 97.0 F 97.6 F Pulse Rate 66 97 Respiratory Rate 16 17 Blood Pressure 120/62 113/61 Pulse Oximetry 99 98 Oxygen Delivery Method Room Air Room Air BMI result Body Mass Index 50.1 Labs Results: 12/28/21 13:05 12/18/21 10:35 Medications Medications Current Medications Acetaminophen (Acetaminophen 325 Mg Tablet) 650 mg PO Q6H PRN PRN Reason: Headache/Pain Mild Scale (1-3) Last Admin: 12/24/21 20:33 Dose: 650 mg Al Hydroxide/Mg Hydroxide (Magnesium Hydrox/Alum Hydrox 30 Ml Oral.Susp) 30 ml PO Q6H PRN PRN Reason: Heartburn/Nausea Hydroxyzine HCl (Hydroxyzine Hcl 25 Mg Tablet) 25 mg PO Q6H PRN PRN Reason: Anxiety Last Admin: 12/26/21 22:58 Dose: 25 mg Magnesium Hydroxide (Milk Of Magnesia 30 Ml Oral.Susp) 30 ml PO DAILY PRN PRN Reason: Constipation Mirtazapine (Mirtazapine 7.5 Mg Tablet) 7.5 mg PO BEDTIME LACEY Last Admin: 12/27/21 21:36 Dose: 7.5 mg Nitrofurantoin Macrocrystals (Nitrofurantoin Macrocrystal 50 Mg Capsule) 100 mg PO BEDTIME LACEY Last Admin: 12/27/21 21:36 Dose: 100 mg Trazodone HCl (Trazodone Hcl 50 Mg Tablet) 50 mg PO BEDTIME PRN PRN Reason: Insomnia Last Admin: 12/26/21 23:01 Dose: 50 mg Trazodone HCl (Trazodone Hcl 50 Mg Tablet) 50 mg PO TID PRN PRN Reason: anxiety/agitation Last Admin: 12/22/21 20:03 Dose: 50 mg Trazodone HCl (Trazodone Hcl 100 Mg Tablet) 100 mg PO BEDTIME LACEY Last Admin: 12/27/21 21:36 Dose: 100 mg Allergies Allergies Allergy/AdvReac Type Severity Reaction Status Date / Time No Known Allergies Allergy Verified 12/10/21 14:27 Assessment & Plan Assessment & Plan (1) Delirium superimposed on dementia: Status: Acute Code(s): F05 - Delirium due to known physiological condition (2) Alzheimer's dementia with behavioral disturbance: Status: Acute Code(s): G30.9 - Alzheimer's disease, unspecified; F02.81 - Dementia in other diseases classified elsewhere, unspecified severity, with behavioral disturbance Plan Elderly female with cognitive decline admitted for disorganized behavior. Also it was noticed on the crisis assessment that she was violent. While she was in the unit she did not show any behavioral disturbances or violence but she looks confused and dysphoric. Plan 1. Gather collateral information. 2. Use trazodone 100 mg p.o. q.h.s. to target insomnia. 3. Since she has more dysphoric start Remeron 7.5 p.o. q.h.s. 4. Blood work for tomorrow morning I spent minutes with the patient and/or on the patient floor today, greater than?50% of which was spent counseling/coordinating care. Reason for contiued inpatient stay Substantial Risk for: inability to function, rapid decompensation and med/psych decompensation
[2021-12-28 13:08] LABS: MANUAL DIFF FLAG NO
[2021-12-28 13:10] LABS: Basophils Percent Auto 0.7 % (0-2); Hematocrit 43.5 % (37.0-47.0); Hemoglobin 14.1 g/dl (12.0-16.0); Lymphocytes Absolute Auto 0.8 X10*3/uL (1.2-4.9); Lymphocytes Percent Auto 28.5 % (20-40); Mean Corpuscular HGB Conc 32.4 g/dl (31.0-35.0); Mean Corpuscular Volume 86.5 fL (80.0-98.0); Mean Platelet Volume 10.3 fL (9.4-12.3); Monocytes Absolute Auto 0.3 X10*3/uL (0.1-1.2); Monocytes Percent Auto 10.5 % (2-11); Neutrophils Absolute Auto 1.8 x10*3/uL (2.0-8.3); Neutrophils Percent Auto 59.3 % (45-73); Platelet Count 181 X10*3/uL (160-400); Red Blood Count 5.03 X10*6/uL (4.20-5.50); Red Cell Distribution Width 13.2 % (11.0-16.0)
[2021-12-28 18:00] VITALS: BP 126/67; PULSE 63; RESP 16; TEMP 36.8; O2SAT 99
[2021-12-28] MEDS: nitrofurantoin macrocrystaL 50 MG CAPSULE 100 MG PO (20:25)
[2021-12-28] MEDS: Mirtazapine 7.5 MG TABLET PO (20:25)
[2021-12-28] MEDS: traZODone HCL 100 MG TABLET PO (20:25)
[2021-12-29 06:00] VITALS: BP 117/69; PULSE 59; RESP 15; TEMP 36.1; O2SAT 97
[2021-12-29 08:11] LABS: Estimated Average Glucose 103 mg/dL; Hemoglobin A1c % 5.2 %
[2021-12-29 08:14] LABS: Alanine Aminotransferase 25 U/L (0-31); Albumin Level 3.9 g/dL (3.5-5.0); Alkaline Phosphatase 57 U/L (39-117); Anion Gap 15 (12-20); Aspartate Amino Transferase 27 U/L (5-31); Bilirubin Direct 0.4 mg/dL (0.0-0.5); Bilirubin Total 1.4 mg/dL (0.0-1.0); Blood Urea Nitrogen 21 mg/dL (9-16); Calcium 8.9 mg/dL (8.4-10.2); Carbon Dioxide 27 mmol/L (22-29); Chloride 106 mmol/L (96-108); Cholesterol 200 mg/dL; Creatinine Clr Calc Pharmacy 96.7; Estimated Glomerular Filt Rate > 60; Glucose Random 92 mg/dL (60-115); HDL Cholesterol 58 mg/dL; LDL Cholesterol Calculated 128 mg/dl; Potassium 3.7 mmol/L (3.3-5.1); Sodium 144 mmol/L (135-145); Total Protein 6.5 g/dL (6.5-8.0); Triglycerides 74 mg/dL
[2021-12-29 08:32] LABS: Thyroid Stimulating Hormone 2.18 uIU/mL (0.32-4.0)
--- NOTE | 2021-12-29 15:23 | HO.PSYCHPN ---
Subjective Subjective Date of Service: 12/29/21 Reason For Visit: Major Neurocongnitive disturbance due to medical c Subjective Notes: Conditional Voluntary Interim History: The nursing staff reported the patient had been easily redirectable but last night she slept only 5 hours. We reviewed the chart and the records came yesterday from the site neurologist and apparently she was psychotic due to UTI on delirium. She was prescribed before with Zyprexa with no improvement and changed to Risperdal and she was on SSRIs before. We discussed at length treatment options with the team and we will start a low dose of Risperdal. Still dysphoric and confused, nonsensical mostly in the evening. On interview the patient was not interacting for with the staff. Easily redirectable. Mental Status Exam Mental Status Exam Patient Appearance: Well Grooomed Patient Orientation: Person and Situation Level of Consciousness: Awake Patient Behavior: Cooperative Mood Description: Constricted Affect Description: Calm Patient Cognition Impaired: Yes Ability to Follow Directions: Fair Speech Pattern: Clear Hallucinations: None Delusions: Paranoid Ideation Thought Process: Distracted and Confusion Thought Content: positive for [place] Judgement: Fair Diagnostics Vital Signs (24Hr): Vital Signs - 24 hr 12/28/21 18:00 12/29/21 06:00 Temperature 98.3 F 97.0 F Pulse Rate 63 59 Respiratory Rate 16 15 Blood Pressure 126/67 117/69 Pulse Oximetry 99 97 Oxygen Delivery Method Room Air Room Air BMI result Body Mass Index 50.1 Labs Results: 12/28/21 13:05 12/29/21 07:38 Labs: Laboratory Results - last 48 hr 12/28/21 12/29/21 12/29/21 13:05 07:38 07:38 WBC 3.0 L RBC 5.03 Hgb 14.1 Hct 43.5 MCV 86.5 MCH 28.0 MCHC 32.4 RDW 13.2 Plt Count 181 MPV 10.3 Immature Gran % (Auto) 0.0 Neut % (Auto) 59.3 Lymph % (Auto) 28.5 [place] % (Auto) 10.5 Eos % (Auto) 1.0 Baso % (Auto) 0.7 Lymph # (Auto) 0.8 L [place] # (Auto) 0.3 Eos # (Auto) 0.0 Baso # (Auto) 0.0 Abs Immat Gran (auto) 0.00 Absolute Neuts (auto) 1.8 L Absolute Nucleated RBC 0.000 Nucleated RBC % (auto) 0.0 Sodium 144 Potassium 3.7 Chloride 106 Carbon Dioxide 27 Anion Gap 15 BUN 21 H Creatinine 0.72 Estim Creat Clear Calc 96.7 Estimated GFR > 60 Random Glucose 92 Estimat Average Glucose 103 Hemoglobin A1c % 5.2 Calcium 8.9 D Total Bilirubin 1.4 H Direct Bilirubin 0.4 AST 27 D ALT 25 Alkaline Phosphatase 57 D Total Protein 6.5 Albumin 3.9 Triglycerides 74 Cholesterol 200 LDL Cholesterol, Calc 128 HDL Cholesterol 58 TSH 2.18 Medications Medications Current Medications Acetaminophen (Acetaminophen 325 Mg Tablet) 650 mg PO Q6H PRN PRN Reason: Headache/Pain Mild Scale (1-3) Last Admin: 12/24/21 20:33 Dose: 650 mg Al Hydroxide/Mg Hydroxide (Magnesium Hydrox/Alum Hydrox 30 Ml Oral.Susp) 30 ml PO Q6H PRN PRN Reason: Heartburn/Nausea Hydroxyzine HCl (Hydroxyzine Hcl 25 Mg Tablet) 25 mg PO Q6H PRN PRN Reason: Anxiety Last Admin: 12/26/21 22:58 Dose: 25 mg Magnesium Hydroxide (Milk Of Magnesia 30 Ml Oral.Susp) 30 ml PO DAILY PRN PRN Reason: Constipation Mirtazapine (Mirtazapine 15 Mg Tablet) 15 mg PO BEDTIME LACEY Nitrofurantoin Macrocrystals (Nitrofurantoin Macrocrystal 50 Mg Capsule) 100 mg PO BEDTIME LACEY Last Admin: 12/28/21 20:25 Dose: 100 mg Trazodone HCl (Trazodone Hcl 50 Mg Tablet) 50 mg PO BEDTIME PRN PRN Reason: Insomnia Last Admin: 12/26/21 23:01 Dose: 50 mg Trazodone HCl (Trazodone Hcl 50 Mg Tablet) 50 mg PO TID PRN PRN Reason: anxiety/agitation Last Admin: 12/22/21 20:03 Dose: 50 mg Trazodone HCl (Trazodone Hcl 100 Mg Tablet) 100 mg PO BEDTIME LACEY Last Admin: 12/28/21 20:25 Dose: 100 mg Allergies Allergies Allergy/AdvReac Type Severity Reaction Status Date / Time No Known Allergies Allergy Verified 12/10/21 14:27 Assessment & Plan Assessment & Plan (1) Delirium superimposed on dementia: Status: Acute Code(s): F05 - Delirium due to known physiological condition (2) Alzheimer's dementia with behavioral disturbance: Status: Acute Code(s): G30.9 - Alzheimer's disease, unspecified; F02.81 - Dementia in other diseases classified elsewhere, unspecified severity, with behavioral disturbance Plan Elderly female with cognitive decline admitted for disorganized behavior. Also it was noticed on the crisis assessment that she was violent. While she was in the unit she did not show any behavioral disturbances or violence but she looks confused and dysphoric. Plan 1. Gather collateral information. 2. Use trazodone 100 mg p.o. q.h.s. to target insomnia. 3. Since she has more dysphoric increase Remeron up to 15 mg p.o. q.h.s. 4. Start Risperdal 0.5 p.o. q.h.s. I spent ___20___ minutes with the patient and/or on the patient floor today, greater than?50% of which was spent counseling/coordinating care. Reason for contiued inpatient stay Substantial Risk for: inability to function, rapid decompensation and med/psych decompensation
[2021-12-29 18:00] VITALS: BP 118/72; PULSE 78; RESP 16; TEMP 36.3; O2SAT 98
[2021-12-29] MEDS: nitrofurantoin macrocrystaL 50 MG CAPSULE 100 MG PO (21:14)
[2021-12-29] MEDS: traZODone HCL 100 MG TABLET PO (21:14)
[2021-12-29] MEDS: risperiDONE 0.5 MG TABLET PO (21:14)
[2021-12-29] MEDS: Mirtazapine 15 MG TABLET PO (21:14)
[2021-12-29] MEDS: traZODone HCL 50 MG TABLET PO ×2 (21:14→21:17)
[2021-12-29] MEDS: hydrOXYzine HCL 25 MG TABLET PO (21:17)
--- NOTE | 2021-12-30 15:05 | MHC.CLN ---
F/U STAFF REPORTS VARIABLE INTAKE AT MEALS. EATS SPORADICALLY IN THAT WILL EAT 100% AT TIMES, OTHER TIMES REFUSES TO EAT. DIET=REGULAR. ENSURE TID PROVIDES ADDITIONAL 1050 KCALS, 60 G PROTEIN. CONTINUE TO ENCOURAGE INTAKE AND MEALS AND SUPPLEMENT. RD TO FOLLOW WEEKLY.
[2021-12-30 18:00] VITALS: PULSE 88; RESP 18; TEMP 36.1; O2SAT 98
--- NOTE | 2021-12-30 18:53 | HO.PSYCHPN ---
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 Pt is mostly unintelligible and demented in interview, at times does not respond to question, maintains eye contact. Only concern is its cold a little bit. No med changes. Medication Compliance: Yes Side effects from medications: No Attending Groups: No Review of Systems Acute medical concerns: Yes Medical Review of Systems: unchanged Mental Status Exam Mental Status Exam Narrative: Patient Appearance: Well Groomed Patient Orientation: Person and Situation Level of Consciousness: Awake Patient Behavior: Cooperative Mood Description: Constricted Affect Description: Calm Patient Cognition Impaired: Yes Ability to Follow Directions: Fair Speech Pattern: Clear Hallucinations: None Delusions: Paranoid Ideation Thought Process: Distracted and Confusion Thought Content: positive for [place] Judgment: Fair Diagnostics Vital Signs (24Hr): BMI result Body Mass Index 50.1 Labs Results: 12/28/21 13:05 12/29/21 07:38 Labs: Laboratory Results - last 48 hr 12/29/21 12/29/21 07:38 07:38 Sodium 144 Potassium 3.7 Chloride 106 Carbon Dioxide 27 Anion Gap 15 BUN 21 H Creatinine 0.72 Estim Creat Clear Calc 96.7 Estimated GFR > 60 Random Glucose 92 Estimat Average Glucose 103 Hemoglobin A1c % 5.2 Calcium 8.9 D Total Bilirubin 1.4 H Direct Bilirubin 0.4 AST 27 D ALT 25 Alkaline Phosphatase 57 D Total Protein 6.5 Albumin 3.9 Triglycerides 74 Cholesterol 200 LDL Cholesterol, Calc 128 HDL Cholesterol 58 TSH 2.18 Medications Medications Current Medications Acetaminophen (Acetaminophen 325 Mg Tablet) 650 mg PO Q6H PRN PRN Reason: Headache/Pain Mild Scale (1-3) Last Admin: 12/24/21 20:33 Dose: 650 mg Al Hydroxide/Mg Hydroxide (Magnesium Hydrox/Alum Hydrox 30 Ml Oral.Susp) 30 ml PO Q6H PRN PRN Reason: Heartburn/Nausea Hydroxyzine HCl (Hydroxyzine Hcl 25 Mg Tablet) 25 mg PO Q6H PRN PRN Reason: Anxiety Last Admin: 12/29/21 21:17 Dose: 25 mg Magnesium Hydroxide (Milk Of Magnesia 30 Ml Oral.Susp) 30 ml PO DAILY PRN PRN Reason: Constipation Mirtazapine (Mirtazapine 15 Mg Tablet) 15 mg PO BEDTIME LACEY Last Admin: 12/29/21 21:14 Dose: 15 mg Nitrofurantoin Macrocrystals (Nitrofurantoin Macrocrystal 50 Mg Capsule) 100 mg PO BEDTIME LACEY Last Admin: 12/29/21 21:14 Dose: 100 mg Risperidone (Risperidone 0.5 Mg Tablet) 0.5 mg PO BEDTIME LACEY Last Admin: 12/29/21 21:14 Dose: 0.5 mg Trazodone HCl (Trazodone Hcl 50 Mg Tablet) 50 mg PO BEDTIME PRN PRN Reason: Insomnia Last Admin: 12/29/21 21:14 Dose: 50 mg Trazodone HCl (Trazodone Hcl 50 Mg Tablet) 50 mg PO TID PRN PRN Reason: anxiety/agitation Last Admin: 12/29/21 21:17 Dose: 50 mg Trazodone HCl (Trazodone Hcl 100 Mg Tablet) 100 mg PO BEDTIME LACEY Last Admin: 12/29/21 21:14 Dose: 100 mg Allergies Allergies Allergy/AdvReac Type Severity Reaction Status Date / Time No Known Allergies Allergy Verified 12/10/21 14:27 Assessment & Plan Assessment & Plan (1) Delirium superimposed on dementia: Status: Acute Code(s): F05 - Delirium due to known physiological condition (2) Alzheimer's dementia with behavioral disturbance: Status: Acute Code(s): G30.9 - Alzheimer's disease, unspecified; F02.81 - Dementia in other diseases classified elsewhere, unspecified severity, with behavioral disturbance Plan Elderly female with cognitive decline admitted for disorganized behavior. Also it was noticed on the crisis assessment that she was violent. While she was in the unit she did not show any behavioral disturbances or violence but she looks confused and dysphoric. Plan 1. Gather collateral information. 2. Use trazodone 100 mg p.o. q.h.s. to target insomnia. 3. Since she has more dysphoric increase Remeron up to 15 mg p.o. q.h.s. 4. Start Risperdal 0.5 p.o. q.h.s. I spent minutes with the patient and/or on the patient floor today, greater than?50% of which was spent counseling/coordinating care. Patient educated on: other Reason for contiued inpatient stay Substantial Risk for: med/psych decompensation
[2021-12-30] MEDS: traZODone HCL 100 MG TABLET PO (21:54)
[2021-12-30] MEDS: risperiDONE 0.5 MG TABLET PO (21:54)
[2021-12-30] MEDS: Mirtazapine 15 MG TABLET PO (21:54)
[2021-12-30] MEDS: nitrofurantoin macrocrystaL 50 MG CAPSULE 100 MG PO (21:55)
[2021-12-31 07:30] VITALS: BP 132/75; PULSE 64; RESP 15; TEMP 36.6; O2SAT 97
[2021-12-31 18:00] VITALS: BP 116/69; PULSE 70; RESP 20; TEMP 36.3; O2SAT 99
[2021-12-31] MEDS: risperiDONE 0.5 MG TABLET PO (21:26)
[2021-12-31] MEDS: traZODone HCL 100 MG TABLET PO (21:26)
[2021-12-31] MEDS: nitrofurantoin macrocrystaL 50 MG CAPSULE 100 MG PO (21:26)
[2021-12-31] MEDS: Mirtazapine 15 MG TABLET PO (21:26)
--- NOTE | 2021-12-31 22:46 | HO.PSYCHPN ---
Subjective Subjective Date of Service: 12/31/21 Reason For Visit: Major Neurocongnitive disturbance due to medical c Interim History: Sitting in [facility]. Pleasant and friendly on approach smiling; however, when asked how she is she says still Araceli and demonstrates disorganized in speech, saying random completely unrelated things, answering questions with completely unrelated answers. Patient has disorganized behavior, hardly eating even with significant prompting; not attending to ADLs Mental Status Exam Mental Status Exam Narrative: Patient Appearance: Well Groomed Patient Orientation: Person? Level of Consciousness: Awake Patient Behavior: mostl Cooperative Mood Description: calm, pleasant Affect Description: Calm Patient Cognition Impaired: Yes Ability to Follow Directions: Fair to poor Speech Pattern: Clear Hallucinations: None Delusions: delusional thinking Thought Process: Disorganized Thought Content: various unrelated topics strong together without obvious relationship Judgment/insight: Poor Diagnostics Vital Signs (24Hr): Vital Signs - 24 hr 12/31/21 07:30 12/31/21 18:00 Temperature 97.9 F 97.4 F Pulse Rate 64 70 Respiratory Rate 15 20 Blood Pressure 132/75 116/69 Pulse Oximetry 97 99 Oxygen Delivery Method Room Air Room Air BMI result Body Mass Index 50.1 Labs Results: 12/28/21 13:05 12/29/21 07:38 Medications Medications Current Medications Acetaminophen (Acetaminophen 325 Mg Tablet) 650 mg PO Q6H PRN PRN Reason: Headache/Pain Mild Scale (1-3) Last Admin: 12/24/21 20:33 Dose: 650 mg Al Hydroxide/Mg Hydroxide (Magnesium Hydrox/Alum Hydrox 30 Ml Oral.Susp) 30 ml PO Q6H PRN PRN Reason: Heartburn/Nausea Hydroxyzine HCl (Hydroxyzine Hcl 25 Mg Tablet) 25 mg PO Q6H PRN PRN Reason: Anxiety Last Admin: 12/29/21 21:17 Dose: 25 mg Magnesium Hydroxide (Milk Of Magnesia 30 Ml Oral.Susp) 30 ml PO DAILY PRN PRN Reason: Constipation Mirtazapine (Mirtazapine 15 Mg Tablet) 15 mg PO BEDTIME LACEY Last Admin: 12/31/21 21:26 Dose: 15 mg Nitrofurantoin Macrocrystals (Nitrofurantoin Macrocrystal 50 Mg Capsule) 100 mg PO BEDTIME LACEY Last Admin: 12/31/21 21:26 Dose: 100 mg Risperidone (Risperidone 0.5 Mg Tablet) 0.5 mg PO BEDTIME LACEY Last Admin: 12/31/21 21:26 Dose: 0.5 mg Trazodone HCl (Trazodone Hcl 50 Mg Tablet) 50 mg PO BEDTIME PRN PRN Reason: Insomnia Last Admin: 12/29/21 21:14 Dose: 50 mg Trazodone HCl (Trazodone Hcl 50 Mg Tablet) 50 mg PO TID PRN PRN Reason: anxiety/agitation Last Admin: 12/29/21 21:17 Dose: 50 mg Trazodone HCl (Trazodone Hcl 100 Mg Tablet) 100 mg PO BEDTIME LACEY Last Admin: 12/31/21 21:26 Dose: 100 mg Allergies Allergies Allergy/AdvReac Type Severity Reaction Status Date / Time No Known Allergies Allergy Verified 12/10/21 14:27 Assessment & Plan Assessment & Plan (1) Delirium superimposed on dementia: Status: Acute Code(s): F05 - Delirium due to known physiological condition (2) Alzheimer's dementia with behavioral disturbance: Status: Acute Code(s): G30.9 - Alzheimer's disease, unspecified; F02.81 - Dementia in other diseases classified elsewhere, unspecified severity, with behavioral disturbance Plan Elderly female with cognitive decline admitted for disorganized behavior. Also it was noticed on the crisis assessment that she was violent. While she was in the unit she did not show any behavioral disturbances or violence but she looks confused and dysphoric. 10/8 disorganized in speech and behavior; may be oriented to self but not to place, time or situation; not eating or drinking much or attending to ADLs Plan 1. Gather collateral information. 2. Use trazodone 100 mg p.o. q.h.s. to target insomnia. 3. Since she has more dysphoric increase Remeron up to 15 mg p.o. q.h.s. 4. Start Risperdal 0.5 p.o. q.h.s. I spent minutes with the patient and/or on the patient floor today, greater than?50% of which was spent counseling/coordinating care. Patient educated on: diagnosis Informed Consent: does not understand Reason for contiued inpatient stay Substantial Risk for: inability to function
[2022-01-01 07:30] VITALS: BP 125/69; PULSE 65; RESP 16; TEMP 36.1; O2SAT 98
[2022-01-01 18:00] VITALS: BP 158/88; PULSE 86; RESP 16; TEMP 36.3; O2SAT 95
--- NOTE | 2022-01-01 18:13 | HO.PSYCHPN ---
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 On approach patient is sitting in same but Liam has as yesterday, cradling a doll, refusing meal as it is offered. Smiled at grant writer and says hello but otherwise difficult with which to engage -not sleeping much, mostly walking around however does not get into trouble and at these times easily redirectable Mental Status Exam Mental Status Exam Narrative: Patient Appearance: Well Groomed Patient Orientation: Person? Level of Consciousness: Awake Patient Behavior: mostl Cooperative Mood Description: calm, pleasant Affect Description: Calm Patient Cognition Impaired: Yes Ability to Follow Directions: Fair to poor Speech Pattern: Clear Hallucinations: None Delusions: delusional thinking Thought Process: Disorganized Thought Content: various unrelated topics strong together without obvious relationship Judgment/insight: Poor Diagnostics Vital Signs (24Hr): Vital Signs - 24 hr 01/01/22 07:30 Temperature 97.0 F Pulse Rate 65 Respiratory Rate 16 Blood Pressure 125/69 Pulse Oximetry 98 Oxygen Delivery Method Room Air BMI result Body Mass Index 50.1 Labs Results: 12/28/21 13:05 12/29/21 07:38 Medications Medications Current Medications Acetaminophen (Acetaminophen 325 Mg Tablet) 650 mg PO Q6H PRN PRN Reason: Headache/Pain Mild Scale (1-3) Last Admin: 12/24/21 20:33 Dose: 650 mg Al Hydroxide/Mg Hydroxide (Magnesium Hydrox/Alum Hydrox 30 Ml Oral.Susp) 30 ml PO Q6H PRN PRN Reason: Heartburn/Nausea Hydroxyzine HCl (Hydroxyzine Hcl 25 Mg Tablet) 25 mg PO Q6H PRN PRN Reason: Anxiety Last Admin: 12/29/21 21:17 Dose: 25 mg Magnesium Hydroxide (Milk Of Magnesia 30 Ml Oral.Susp) 30 ml PO DAILY PRN PRN Reason: Constipation Mirtazapine (Mirtazapine 15 Mg Tablet) 15 mg PO BEDTIME LACEY Last Admin: 12/31/21 21:26 Dose: 15 mg Nitrofurantoin Macrocrystals (Nitrofurantoin Macrocrystal 50 Mg Capsule) 100 mg PO BEDTIME LACEY Last Admin: 12/31/21 21:26 Dose: 100 mg Risperidone (Risperidone 0.5 Mg Tablet) 0.5 mg PO BEDTIME LACEY Last Admin: 12/31/21 21:26 Dose: 0.5 mg Trazodone HCl (Trazodone Hcl 50 Mg Tablet) 50 mg PO BEDTIME PRN PRN Reason: Insomnia Last Admin: 12/29/21 21:14 Dose: 50 mg Trazodone HCl (Trazodone Hcl 50 Mg Tablet) 50 mg PO TID PRN PRN Reason: anxiety/agitation Last Admin: 12/29/21 21:17 Dose: 50 mg Trazodone HCl (Trazodone Hcl 100 Mg Tablet) 100 mg PO BEDTIME LACEY Last Admin: 12/31/21 21:26 Dose: 100 mg Allergies Allergies Allergy/AdvReac Type Severity Reaction Status Date / Time No Known Allergies Allergy Verified 12/10/21 14:27 Assessment & Plan Assessment & Plan (1) Delirium superimposed on dementia: Status: Acute Code(s): F05 - Delirium due to known physiological condition (2) Alzheimer's dementia with behavioral disturbance: Status: Acute Code(s): G30.9 - Alzheimer's disease, unspecified; F02.81 - Dementia in other diseases classified elsewhere, unspecified severity, with behavioral disturbance Plan Elderly female with cognitive decline admitted for disorganized behavior. Also it was noticed on the crisis assessment that she was violent. While she was in the unit she did not show any behavioral disturbances or violence but she looks confused and dysphoric. 10 disorganized in speech and behavior; may be oriented to self but not to place, time or situation; not eating or drinking much or attending to ADLs 10 patient remains disorganized in speech behavior; she is hardly drinking anything and not eating. -Ordered labs to assess electrolytes and kidney function, other Plan 1. Gather collateral information. 2. Use trazodone 100 mg p.o. q.h.s. to target insomnia. 3. Since she has more dysphoric increase Remeron up to 15 mg p.o. q.h.s. 4. Start Risperdal 0.5 p.o. q.h.s. I spent minutes with the patient and/or on the patient floor today, greater than?50% of which was spent counseling/coordinating care. Informed Consent: does not understand Reason for contiued inpatient stay Substantial Risk for: inability to function
[2022-01-01 18:25] LABS: Basophils Percent Auto 0.4 % (0-2); Eosinophils Percent Auto 0.6 % (0-4); Hematocrit 45.3 % (37.0-47.0); Hemoglobin 14.6 g/dl (12.0-16.0); Imm Gran Abs Auto 0.01 X10*3/uL (0.00-0.03); Imm Gran Pct Auto 0.2 % (0.0-0.4); Lymphocytes Absolute Auto 0.9 X10*3/uL (1.2-4.9); Lymphocytes Percent Auto 18.5 % (20-40); MANUAL DIFF FLAG NO; Mean Corpuscular HGB Conc 32.2 g/dl (31.0-35.0); Mean Corpuscular Hemoglobin 28.4 pg (27.0-33.0); Mean Corpuscular Volume 88.1 fL (80.0-98.0); Mean Platelet Volume 10.7 fL (9.4-12.3); Monocytes Absolute Auto 0.5 X10*3/uL (0.1-1.2); Monocytes Percent Auto 10.6 % (2-11); Neutrophils Absolute Auto 3.4 x10*3/uL (2.0-8.3); Neutrophils Percent Auto 69.7 % (45-73); Platelet Count 187 X10*3/uL (160-400); Red Blood Count 5.14 X10*6/uL (4.20-5.50); Red Cell Distribution Width 13.1 % (11.0-16.0); White Blood Count 4.8 X10*3/uL (4.8-10.8)
[2022-01-01 20:14] LABS: Ammonia 39 umol/L (13-55)
[2022-01-01 20:58] LABS: Alanine Aminotransferase 38 U/L (0-31); Albumin Level 4.6 g/dL (3.5-5.0); Alkaline Phosphatase 68 U/L (39-117); Anion Gap 24 (12-20); Aspartate Amino Transferase 33 U/L (5-31); Bilirubin Direct 0.4 mg/dL (0.0-0.5); Bilirubin Total 1.3 mg/dL (0.0-1.0); Blood Urea Nitrogen 25 mg/dL (9-16); Carbon Dioxide 18 mmol/L (22-29); Chloride 105 mmol/L (96-108); Creatinine Clr Calc Pharmacy 81.9; Estimated Glomerular Filt Rate > 60; Potassium 3.7 mmol/L (3.3-5.1); Sodium 143 mmol/L (135-145); Total Protein 7.5 g/dL (6.5-8.0)
[2022-01-01] MEDS: risperiDONE 0.5 MG TABLET PO (21:41)
[2022-01-01] MEDS: Mirtazapine 15 MG TABLET PO (21:41)
[2022-01-01] MEDS: traZODone HCL 100 MG TABLET PO (21:41)
[2022-01-01] MEDS: nitrofurantoin macrocrystaL 50 MG CAPSULE 100 MG PO (21:41)
[2022-01-02 18:00] VITALS: BP 133/78; PULSE 122; RESP 18; TEMP 37.4; O2SAT 92
--- NOTE | 2022-01-02 18:19 | P.PNPSI_ITS ---
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 Used vitals. Very hard to get her to eat or drink Mental Status Exam Mental Status Exam Narrative: Patient Appearance: Well Groomed Patient Orientation: Person? Level of Consciousness: Awake Patient Behavior: mostl Cooperative Mood Description: calm, pleasant Affect Description: Calm Patient Cognition Impaired: Yes Ability to Follow Directions: Fair to poor Speech Pattern: Clear Hallucinations: None Delusions: delusional thinking Thought Process: Disorganized Thought Content: various unrelated topics strong together without obvious relationship Judgment/insight: Poor Diagnostics Vital Signs (24Hr): BMI result Body Mass Index 50.1 Labs Results: 01/01/22 18:20 01/01/22 18:19 Labs: Laboratory Results - last 48 hr 01/01/22 01/01/22 01/01/22 18:19 18:19 18:20 WBC 4.8 RBC 5.14 Hgb 14.6 Hct 45.3 MCV 88.1 MCH 28.4 MCHC 32.2 RDW 13.1 Plt Count 187 MPV 10.7 Immature Gran % (Auto) 0.2 Neut % (Auto) 69.7 Lymph % (Auto) 18.5 L [place] % (Auto) 10.6 Eos % (Auto) 0.6 Baso % (Auto) 0.4 Lymph # (Auto) 0.9 L [place] # (Auto) 0.5 Eos # (Auto) 0.0 Baso # (Auto) 0.0 Abs Immat Gran (auto) 0.01 Absolute Neuts (auto) 3.4 Absolute Nucleated RBC 0.000 Nucleated RBC % (auto) 0.0 Sodium 143 Potassium 3.7 Chloride 105 Carbon Dioxide 18 L Anion Gap 24 H BUN 25 H Creatinine 0.85 Estim Creat Clear Calc 81.9 Estimated GFR > 60 Total Bilirubin 1.3 H Direct Bilirubin 0.4 AST 33 H ALT 38 H Alkaline Phosphatase 68 Ammonia 39 Total Protein 7.5 Albumin 4.6 Medications Medications Current Medications Acetaminophen (Acetaminophen 325 Mg Tablet) 650 mg PO Q6H PRN PRN Reason: Headache/Pain Mild Scale (1-3) Last Admin: 12/24/21 20:33 Dose: 650 mg Al Hydroxide/Mg Hydroxide (Magnesium Hydrox/Alum Hydrox 30 Ml Oral.Susp) 30 ml PO Q6H PRN PRN Reason: Heartburn/Nausea Hydroxyzine HCl (Hydroxyzine Hcl 25 Mg Tablet) 25 mg PO Q6H PRN PRN Reason: Anxiety Last Admin: 12/29/21 21:17 Dose: 25 mg Magnesium Hydroxide (Milk Of Magnesia 30 Ml Oral.Susp) 30 ml PO DAILY PRN PRN Reason: Constipation Mirtazapine (Mirtazapine 15 Mg Tablet) 15 mg PO BEDTIME LACEY Last Admin: 01/01/22 21:41 Dose: 15 mg Nitrofurantoin Macrocrystals (Nitrofurantoin Macrocrystal 50 Mg Capsule) 100 mg PO BEDTIME LACEY Last Admin: 01/01/22 21:41 Dose: 100 mg Risperidone (Risperidone 0.5 Mg Tablet) 0.5 mg PO BEDTIME LACEY Last Admin: 01/01/22 21:41 Dose: 0.5 mg Trazodone HCl (Trazodone Hcl 50 Mg Tablet) 50 mg PO BEDTIME PRN PRN Reason: Insomnia Last Admin: 12/29/21 21:14 Dose: 50 mg Trazodone HCl (Trazodone Hcl 50 Mg Tablet) 50 mg PO TID PRN PRN Reason: anxiety/agitation Last Admin: 12/29/21 21:17 Dose: 50 mg Trazodone HCl (Trazodone Hcl 100 Mg Tablet) 100 mg PO BEDTIME [facility] Last Admin: 01/01/22 21:41 Dose: 100 mg Allergies Allergies Allergy/AdvReac Type Severity Reaction Status Date / Time No Known Allergies Allergy Verified 12/10/21 14:27 Assessment & Plan Assessment & Plan (1) Delirium superimposed on dementia: Status: Acute Code(s): F05 - Delirium due to known physiological condition (2) Alzheimer's dementia with behavioral disturbance: Status: Acute Code(s): G30.9 - Alzheimer's disease, unspecified; F02.81 - Dementia in other diseases c lassified elsewhere, unspecified severity, with behavioral disturbance Plan Elderly female with cognitive decline admitted for disorganized behavior. Also it was noticed on the crisis assessment that she was violent. While she was in the unit she did not show any behavioral disturbances or violence but she looks confused and dysphoric. 12/31 disorganized in speech and behavior; may be oriented to self but not to place, time or situation; not eating or drinking much or attending to ADLs 01/01 patient remains disorganized in speech behavior; she is hardly drinking anything and not eating. -labs: WNL -will continue to monitor [employer] Attendant told that healthcare proxy has been invoked Plan 1. Gather collateral information. 2. Use trazodone 100 mg p.o. q.h.s. to target insomnia. 3. Since she has more dysphoric increase Remeron up to 15 mg p.o. q.h.s. 4. Start Risperdal 0.5 p.o. q.h.s. I spent minutes with the patient and/or on the patient floor today, greater than?50% of which was spent counseling/coordinating care. Informed Consent: does not understand Reason for contiued inpatient stay Substantial Risk for: inability to function
[2022-01-02] MEDS: traZODone HCL 100 MG TABLET PO (20:11)
[2022-01-02] MEDS: hydrOXYzine HCL 25 MG TABLET PO (20:11)
[2022-01-02] MEDS: risperiDONE 0.5 MG TABLET PO (20:11)
[2022-01-02] MEDS: Mirtazapine 15 MG TABLET PO (20:12)
[2022-01-02] MEDS: nitrofurantoin macrocrystaL 50 MG CAPSULE 100 MG PO (20:12)
[2022-01-02 21:00] VITALS: PULSE 80; RESP 16; TEMP 36.6; O2SAT 94
--- NOTE | 2022-01-03 17:11 | HO.PSYCHPN ---
Subjective Subjective Date of Service: 01/03/22 Reason For Visit: Major Neurocongnitive disturbance due to medical c Subjective Notes: Conditional Voluntary Interim History: The nursing staff reported that she had been confused but smiling cheerful and she slept all night long. Yesterday she was also tearful and regressing holding a baby doll. The marriage and family social worker has been talking with the family regarding [facility] application. On interview the patient denies any new symptoms she looks pleasantly confused. Mental Status Exam Mental Status Exam Patient Appearance: Appropriate Patient Orientation: Person Level of Consciousness: Alert Patient Behavior: Cooperative Mood Description: Calm Affect Description: Constricted Patient Cognition Impaired: Yes Ability to Follow Directions: Good Speech Pattern: Clear Hallucinations: None Delusions: Not Present Thought Process: Distracted Thought Content: positive for [place] Judgement: Fair Diagnostics Vital Signs (24Hr): Vital Signs - 24 hr 01/02/22 18:00 01/02/22 21:00 Temperature 99.3 F 97.8 F Pulse Rate 122 H 80 Respiratory Rate 18 16 Blood Pressure 133/78 Pulse Oximetry 92 94 Oxygen Delivery Method Room Air Room Air BMI result Body Mass Index 50.1 Labs Results: 01/01/22 18:20 01/01/22 18:19 Labs: Laboratory Results - last 48 hr 01/01/22 01/01/22 01/01/22 18:19 18:19 18:20 WBC 4.8 RBC 5.14 Hgb 14.6 Hct 45.3 MCV 88.1 MCH 28.4 MCHC 32.2 RDW 13.1 Plt Count 187 MPV 10.7 Immature Gran % (Auto) 0.2 Neut % (Auto) 69.7 Lymph % (Auto) 18.5 L [place] % (Auto) 10.6 Eos % (Auto) 0.6 Baso % (Auto) 0.4 Lymph # (Auto) 0.9 L [place] # (Auto) 0.5 Eos # (Auto) 0.0 Baso # (Auto) 0.0 Abs Immat Gran (auto) 0.01 Absolute Neuts (auto) 3.4 Absolute Nucleated RBC 0.000 Nucleated RBC % (auto) 0.0 Sodium 143 Potassium 3.7 Chloride 105 Carbon Dioxide 18 L Anion Gap 24 H BUN 25 H Creatinine 0.85 Estim Creat Clear Calc 81.9 Estimated GFR > 60 Total Bilirubin 1.3 H Direct Bilirubin 0.4 AST 33 H ALT 38 H Alkaline Phosphatase 68 Ammonia 39 Total Protein 7.5 Albumin 4.6 Medications Medications Current Medications Acetaminophen (Acetaminophen 325 Mg Tablet) 650 mg PO Q6H PRN PRN Reason: Headache/Pain Mild Scale (1-3) Last Admin: 12/24/21 20:33 Dose: 650 mg Al Hydroxide/Mg Hydroxide (Magnesium Hydrox/Alum Hydrox 30 Ml Oral.Susp) 30 ml PO Q6H PRN PRN Reason: Heartburn/Nausea Hydroxyzine HCl (Hydroxyzine Hcl 25 Mg Tablet) 25 mg PO Q6H PRN PRN Reason: Anxiety Last Admin: 01/02/22 20:11 Dose: 25 mg Magnesium Hydroxide (Milk Of Magnesia 30 Ml Oral.Susp) 30 ml PO DAILY PRN PRN Reason: Constipation Mirtazapine (Mirtazapine 15 Mg Tablet) 15 mg PO BEDTIME LACEY Last Admin: 01/02/22 20:12 Dose: 15 mg Nitrofurantoin Macrocrystals (Nitrofurantoin Macrocrystal 50 Mg Capsule) 100 mg PO BEDTIME LACEY Last Admin: 01/02/22 20:12 Dose: 100 mg Risperidone (Risperidone 0.5 Mg Tablet) 0.5 mg PO BEDTIME LACEY Last Admin: 01/02/22 20:11 Dose: 0.5 mg Trazodone HCl (Trazodone Hcl 50 Mg Tablet) 50 mg PO BEDTIME PRN PRN Reason: Insomnia Last Admin: 12/29/21 21:14 Dose: 50 mg Trazodone HCl (Trazodone Hcl 50 Mg Tablet) 50 mg PO TID PRN PRN Reason: anxiety/agitation Last Admin: 12/29/21 21:17 Dose: 50 mg Trazodone HCl (Trazodone Hcl 100 Mg Tablet) 100 mg PO BEDTIME LACEY Last Admin: 01/02/22 20:11 Dose: 100 mg Allergies Allergies Allergy/AdvReac Type Severity Reaction Status Date / Time No Known Allergies Allergy Verified 12/10/21 14:27 Assessment & Plan Assessment & Plan (1) Delirium superimposed on dementia: Status: Acute Code(s): F05 - Delirium due to known physiological condition (2) Alzheimer's dementia with behavioral disturbance: Status: Acute Code(s): G30.9 - Alzheimer's disease, unspecified; F02.81 - Dementia in other diseases classified elsewhere, unspecified severity, with behavioral disturbance Plan Elderly female with cognitive decline admitted for disorganized behavior. Also it was noticed on the crisis assessment that she was violent. While she was in the unit she did not show any behavioral disturbances or violence but she looks confused and dysphoric. 12/31 disorganized in speech and behavior; may be oriented to self but not to place, time or situation; not eating or drinking much or attending to ADLs 01/01 patient remains disorganized in speech behavior; she is hardly drinking anything and not eating. -labs: WNL -will continue to monitor [employer] told that healthcare proxy has been invoked Plan 1. Gather collateral information. 2. Use trazodone 100 mg p.o. q.h.s. to target insomnia. 3. Since she has more dysphoric increase Remeron up to 15 mg p.o. q.h.s. 4. Start Risperdal 0.5 p.o. q.h.s. I spent ___20___ minutes with the patient and/or on the patient floor today, greater than?50% of which was spent counseling/coordinating care. Reason for contiued inpatient stay Substantial Risk for: inability to function, rapid decompensation and med/psych decompensation
[2022-01-03 19:00] VITALS: BP 137/86; PULSE 87; RESP 16; TEMP 36.8; O2SAT 95
[2022-01-03] MEDS: risperiDONE 0.5 MG TABLET PO (21:13)
[2022-01-03] MEDS: Mirtazapine 15 MG TABLET PO (21:13)
[2022-01-03] MEDS: hydrOXYzine HCL 25 MG TABLET PO (21:13)
[2022-01-03] MEDS: traZODone HCL 50 MG TABLET PO (21:13)
[2022-01-03] MEDS: nitrofurantoin macrocrystaL 50 MG CAPSULE 100 MG PO (21:13)
[2022-01-03] MEDS: traZODone HCL 100 MG TABLET PO (21:13)
[2022-01-04] MEDS: traZODone HCL 50 MG TABLET PO (02:40)
--- NOTE | 2022-01-04 12:34 | P.PNPSI_ITS ---
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 She is pleasant but she has shown aggressive behavior such as playing with a baby doll. The social studies department chair reported that we are waiting for placement, her [facility] application was already done. On interview the patient is pleasantly confused. Mental Status Exam Mental Status Exam Patient Appearance: Well Grooomed Patient Orientation: Person and Situation Level of Consciousness: Awake Patient Behavior: Cooperative Mood Description: Constricted Affect Description: Calm Patient Cognition Impaired: Yes Ability to Follow Directions: Good Speech Pattern: Clear Hallucinations: None Delusions: Not Present Thought Process: Distracted and Confusion Thought Content: positive for Lyman Judgement: Fair Diagnostics Vital Signs (24Hr): Vital Signs - 24 hr 01/03/22 19:00 Temperature 98.3 F Pulse Rate 87 Respiratory Rate 16 Blood Pressure 137/86 Pulse Oximetry 95 Oxygen Delivery Method Room Air BMI result Body Mass Index 50.1 Labs Results: 01/01/22 18:20 01/01/22 18:19 Medications Medications Current Medications Acetaminophen (Acetaminophen 325 Mg Tablet) 650 mg PO Q6H PRN PRN Reason: Headache/Pain Mild Scale (1-3) Last Admin: 12/24/21 20:33 Dose: 650 mg Al Hydroxide/Mg Hydroxide (Magnesium Hydrox/Alum Hydrox 30 Ml Oral.Susp) 30 ml PO Q6H PRN PRN Reason: Heartburn/Nausea Hydroxyzine HCl (Hydroxyzine Hcl 25 Mg Tablet) 25 mg PO Q6H PRN PRN Reason: Anxiety Last Admin: 01/03/22 21:13 Dose: 25 mg Magnesium Hydroxide (Milk Of Magnesia 30 Ml Oral.Susp) 30 ml PO DAILY PRN PRN Reason: Constipation Mirtazapine (Mirtazapine 15 Mg Tablet) 15 mg PO BEDTIME LACEY Last Admin: 01/03/22 21:13 Dose: 15 mg Nitrofurantoin Macrocrystals (Nitrofurantoin Macrocrystal 50 Mg Capsule) 100 mg PO BEDTIME LACEY Last Admin: 01/03/22 21:13 Dose: 100 mg Risperidone (Risperidone 0.5 Mg Tablet) 0.5 mg PO BEDTIME LACEY Last Admin: 01/03/22 21:13 Dose: 0.5 mg Trazodone HCl (Trazodone Hcl 50 Mg Tablet) 50 mg PO BEDTIME PRN PRN Reason: Insomnia Last Admin: 01/03/22 21:13 Dose: 50 mg Trazodone HCl (Trazodone Hcl 50 Mg Tablet) 50 mg PO TID PRN PRN Reason: anxiety/agitation Last Admin: 01/04/22 02:40 Dose: 50 mg Trazodone HCl (Trazodone Hcl 100 Mg Tablet) 100 mg PO BEDTIME LACEY Last Admin: 01/03/22 21:13 Dose: 100 mg Allergies Allergies Allergy/AdvReac Type Severity Reaction Status Date / Time No Known Allergies Allergy Verified 12/10/21 14:27 Assessment & Plan Assessment & Plan (1) Delirium superimposed on dementia: Status: Acute Code(s): F05 - Delirium due to known physiological condition (2) Alzheimer's dementia with behavioral disturbance: Status: Acute Code(s): G30.9 - Alzheimer's disease, unspecified; F02.81 - Dementia in other diseases classified elsewhere, unspecified severity, with behavioral disturbance Plan Elderly female with cognitive decline admitted for disorganized behavior. Also it was noticed on the crisis assessment that she was violent. While she was in the unit she did not show any behavioral disturbances or violence but she looks confused and dysphoric. 10/8 disorganized in speech and behavior; may be oriented to self but not to place, time or situation; not eating or drinking much or attending to ADLs 10/ patient remains disorganized in speech behavior; she is hardly drinking anything and not eating. -labs: WNL -will continue to monitor Sales And Marketing Manager told that healthcare proxy has been invoked Plan 1. Gather collateral information. 2. Use trazodone 100 mg p.o. q.h.s. to target insomnia. 3. Since she has more dysphoric increase Remeron up to 15 mg p.o. q.h.s. 4. Start Risperdal 0.5 p.o. q.h.s. 5. Placement I spent __20____ minutes with the patient and/or on the patient floor today, greater than?50% of which was spent counseling/coordinating care. Reason for contiued inpatient stay Substantial Risk for: inability to function, rapid decompensation and med/psych decompensation
[2022-01-04 18:00] VITALS: BP 130/70; PULSE 77; RESP 16; TEMP 36.8; O2SAT 94
[2022-01-05 07:00] VITALS: BMI 49.0
[2022-01-05 07:30] VITALS: BP 118/72; PULSE 67; RESP 16; TEMP 36.6; O2SAT 96
--- NOTE | 2022-01-05 12:48 | HO.PSYCHPN ---
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 She refused her medications last evening. The social services counselor reported the family is trying to look for a correction facility. On interview the patient looks pleasantly confused no changes in her mental status. Mental Status Exam Mental Status Exam Patient Appearance: Well Grooomed Patient Orientation: Person Level of Consciousness: Awake Patient Behavior: Passive Mood Description: Suspicious and Withdrawn Affect Description: Labile Patient Cognition Impaired: Yes Ability to Follow Directions: Fair Speech Pattern: Clear Hallucinations: None Delusions: Not Present Thought Process: Distracted Thought Content: positive for Circumstantial Judgement: Poor Diagnostics Vital Signs (24Hr): Vital Signs - 24 hr 01/04/22 18:00 01/05/22 07:30 Temperature 98.3 F 98 F Pulse Rate 77 67 Respiratory Rate 16 16 Blood Pressure 130/70 118/72 Pulse Oximetry 94 96 Oxygen Delivery Method Room Air Room Air BMI result Body Mass Index 50.1 Labs Results: 01/01/22 18:20 01/01/22 18:19 Medications Medications Current Medications Acetaminophen (Acetaminophen 325 Mg Tablet) 650 mg PO Q6H PRN PRN Reason: Headache/Pain Mild Scale (1-3) Last Admin: 12/24/21 20:33 Dose: 650 mg Al Hydroxide/Mg Hydroxide (Magnesium Hydrox/Alum Hydrox 30 Ml Oral.Susp) 30 ml PO Q6H PRN PRN Reason: Heartburn/Nausea Hydroxyzine HCl (Hydroxyzine Hcl 25 Mg Tablet) 25 mg PO Q6H PRN PRN Reason: Anxiety Last Admin: 01/03/22 21:13 Dose: 25 mg Magnesium Hydroxide (Milk Of Magnesia 30 Ml Oral.Susp) 30 ml PO DAILY PRN PRN Reason: Constipation Mirtazapine (Mirtazapine 15 Mg Tablet) 15 mg PO BEDTIME LACEY Last Admin: 01/04/22 21:19 Dose: Not Given Nitrofurantoin Macrocrystals (Nitrofurantoin Macrocrystal 50 Mg Capsule) 100 mg PO BEDTIME LACEY Last Admin: 01/04/22 21:20 Dose: Not Given Risperidone (Risperidone 0.5 Mg Tablet) 0.5 mg PO BEDTIME LACEY Last Admin: 01/04/22 21:20 Dose: Not Given Trazodone HCl (Trazodone Hcl 50 Mg Tablet) 50 mg PO BEDTIME PRN PRN Reason: Insomnia Last Admin: 01/03/22 21:13 Dose: 50 mg Trazodone HCl (Trazodone Hcl 50 Mg Tablet) 50 mg PO TID PRN PRN Reason: anxiety/agitation Last Admin: 01/04/22 02:40 Dose: 50 mg Trazodone HCl (Trazodone Hcl 100 Mg Tablet) 100 mg PO BEDTIME LACEY Last Admin: 01/04/22 21:20 Dose: Not Given Allergies Allergies Allergy/AdvReac Type Severity Reaction Status Date / Time No Known Allergies Allergy Verified 12/10/21 14:27 Assessment & Plan Assessment & Plan (1) Delirium superimposed on dementia: Status: Acute Code(s): F05 - Delirium due to known physiological condition (2) Alzheimer's dementia with behavioral disturbance: Status: Acute Code(s): G30.9 - Alzheimer's disease, unspecified; F02.81 - Dementia in other diseases classified elsewhere, unspecified severity, with behavioral disturbance Plan Elderly female with cognitive decline admitted for disorganized behavior. Also it was noticed on the crisis assessment that she was violent. While she was in the unit she did not show any behavioral disturbances or violence but she looks confused and dysphoric. 108 disorganized in speech and behavior; may be oriented to self but not to place, time or situation; not eating or drinking much or attending to ADLs 10/ patient remains disorganized in speech behavior; she is hardly drinking anything and not eating. -labs: WNL -will continue to monitor Manager Garage told that healthcare proxy has been invoked Plan 1. Gather collateral information. 2. Use trazodone 100 mg p.o. q.h.s. to target insomnia. 3. Since she has more dysphoric increase Remeron up to 15 mg p.o. q.h.s. 4. Start Risperdal 0.5 p.o. q.h.s. 5. Placement I spent ___20___ minutes with the patient and/or on the patient floor today, greater than?50% of which was spent counseling/coordinating care. Reason for contiued inpatient stay Substantial Risk for: inability to function, rapid decompensation and med/psych decompensation
[2022-01-05 20:00] VITALS: BP 128/80; PULSE 70; RESP 16; TEMP 36.6; O2SAT 95
[2022-01-05] MEDS: hydrOXYzine HCL 25 MG TABLET PO (21:02)
[2022-01-05] MEDS: traZODone HCL 100 MG TABLET PO (21:03)
[2022-01-05] MEDS: traZODone HCL 50 MG TABLET PO (21:03)
[2022-01-05] MEDS: Mirtazapine 15 MG TABLET PO (21:03)
[2022-01-05] MEDS: nitrofurantoin macrocrystaL 50 MG CAPSULE 100 MG PO (21:03)
[2022-01-05] MEDS: risperiDONE 0.5 MG TABLET PO (21:03)
[2022-01-06 09:30] VITALS: BP 120/70; PULSE 68; RESP 16; TEMP 36.6; O2SAT 96
--- NOTE | 2022-01-06 13:26 | HO.PSYCHPN ---
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 She looks pleasantly confused but easily redirectable. The 7th grade social studies teacher reported that her daughter has already finished application for [employer] and we are waiting for financial clearance for placement. On interview the patient denies new symptoms Mental Status Exam Mental Status Exam Patient Appearance: Well Grooomed Patient Orientation: Person Level of Consciousness: Awake Patient Behavior: Cooperative Mood Description: Withdrawn Affect Description: Constricted Patient Cognition Impaired: Yes Ability to Follow Directions: Good Speech Pattern: Clear Hallucinations: None Delusions: Not Present Thought Process: Illogical and Distracted Thought Content: positive for Circumstantial and positive for Loose Associations Judgement: Poor Diagnostics Vital Signs (24Hr): Vital Signs - 24 hr 01/05/22 20:00 01/06/22 09:30 Temperature 97.8 F 97.8 F Pulse Rate 70 68 Respiratory Rate 16 16 Blood Pressure 128/80 120/70 Pulse Oximetry 95 96 Oxygen Delivery Method Room Air Room Air BMI result Body Mass Index 49.0 Labs Results: 01/01/22 18:20 01/01/22 18:19 Medications Medications Current Medications Acetaminophen (Acetaminophen 325 Mg Tablet) 650 mg PO Q6H PRN PRN Reason: Headache/Pain Mild Scale (1-3) Last Admin: 12/24/21 20:33 Dose: 650 mg Al Hydroxide/Mg Hydroxide (Magnesium Hydrox/Alum Hydrox 30 Ml Oral.Susp) 30 ml PO Q6H PRN PRN Reason: Heartburn/Nausea Hydroxyzine HCl (Hydroxyzine Hcl 25 Mg Tablet) 25 mg PO Q6H PRN PRN Reason: Anxiety Last Admin: 01/05/22 21:02 Dose: 25 mg Magnesium Hydroxide (Milk Of Magnesia 30 Ml Oral.Susp) 30 ml PO DAILY PRN PRN Reason: Constipation Mirtazapine (Mirtazapine 15 Mg Tablet) 15 mg PO BEDTIME LACEY Last Admin: 01/05/22 21:03 Dose: 15 mg Nitrofurantoin Macrocrystals (Nitrofurantoin Macrocrystal 50 Mg Capsule) 100 mg PO BEDTIME LACEY Last Admin: 01/05/22 21:03 Dose: 100 mg Risperidone (Risperidone 0.5 Mg Tablet) 0.5 mg PO BEDTIME LACEY Last Admin: 01/05/22 21:03 Dose: 0.5 mg Trazodone HCl (Trazodone Hcl 50 Mg Tablet) 50 mg PO BEDTIME PRN PRN Reason: Insomnia Last Admin: 01/05/22 21:03 Dose: 50 mg Trazodone HCl (Trazodone Hcl 50 Mg Tablet) 50 mg PO TID PRN PRN Reason: anxiety/agitation Last Admin: 01/04/22 02:40 Dose: 50 mg Trazodone HCl (Trazodone Hcl 100 Mg Tablet) 100 mg PO BEDTIME LACEY Last Admin: 01/05/22 21:03 Dose: 100 mg Allergies Allergies Allergy/AdvReac Type Severity Reaction Status Date / Time No Known Allergies Allergy Verified 12/10/21 14:27 Assessment & Plan Assessment & Plan (1) Delirium superimposed on dementia: Status: Acute Code(s): F05 - Delirium due to known physiological condition (2) Alzheimer's dementia with behavioral disturbance: Status: Acute Code(s): G30.9 - Alzheimer's disease, unspecified; F02.81 - Dementia in other diseases classified elsewhere, unspecified severity, with behavioral disturbance Plan Elderly female with cognitive decline admitted for disorganized behavior. Also it was noticed on the crisis assessment that she was violent. While she was in the unit she did not show any behavioral disturbances or violence but she looks confused and dysphoric. 10/8 disorganized in speech and behavior; may be oriented to self but not to place, time or situation; not eating or drinking much or attending to ADLs 10/9 patient remains disorganized in speech behavior; she is hardly drinking anything and not eating. -labs: WNL -will continue to monitor Public Administration Teacher told that healthcare proxy has been invoked Plan 1. Gather collateral information. 2. Use trazodone 100 mg p.o. q.h.s. to target insomnia. 3. Since she has more dysphoric increase Remeron up to 15 mg p.o. q.h.s. 4. Start Risperdal 0.5 p.o. q.h.s. 5. Placement I spent __20____ minutes with the patient and/or on the patient floor today, greater than?50% of which was spent counseling/coordinating care. Reason for contiued inpatient stay Substantial Risk for: inability to function, rapid decompensation and med/psych decompensation
--- NOTE | 2022-01-06 15:35 | MHC.CLN ---
F/U REVIEW OF WEIGHT HX SHOWS -3.2% WEIGHT LOSS SINCE 12/15. STAFF REPORTS VARIABLE INTAKE AT MEALS. DIET=REGULAR. ENSURE TID PROVIDES ADDITIONAL 1050 KCALS, 60 G PROTEIN. CONTINUE TO ENCOURAGE INTAKE AND MEALS AND SUPPLEMENT. RD TO FOLLOW WEEKLY.
[2022-01-06 18:00] VITALS: BP 141/66; PULSE 68; RESP 18; TEMP 36.8; O2SAT 96
[2022-01-06] MEDS: nitrofurantoin macrocrystaL 50 MG CAPSULE 100 MG PO (20:35)
[2022-01-06] MEDS: Mirtazapine 15 MG TABLET PO (20:35)
[2022-01-06] MEDS: traZODone HCL 100 MG TABLET PO (20:36)
[2022-01-06] MEDS: hydrOXYzine HCL 25 MG TABLET PO (20:36)
[2022-01-06] MEDS: risperiDONE 0.5 MG TABLET PO (20:36)
[2022-01-07 09:00] VITALS: BP 124/84; PULSE 83; RESP 17; TEMP 36.4; O2SAT 95
--- NOTE | 2022-01-07 14:49 | HO.PSYCHPN ---
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 Discussed with Nursing. Overall no significant issues since yesterday. Does present with clear dementia. Talking to a doll on her bed. Difficulty following conversation. No evidence of depression. No aggression or agitation. Medication Compliance: Yes Side effects from medications: No Attending Groups: No Review of Systems Acute medical concerns: No Review of Systems Review of Systems Yes Unobtainable due to mental status Mental Status Exam Mental Status Exam Narrative: Pleasant. Engaged. Appropriately dressed. Good hygiene. Difficulty with orientation focus and concentration consistent with well-established dementia. No evidence of depression SI HI agitation or psychosis. Insight and judgment poor Diagnostics Vital Signs (24Hr): Vital Signs - 24 hr 01/06/22 18:00 Temperature 98.2 F Pulse Rate 68 Respiratory Rate 18 Blood Pressure 141/66 H Pulse Oximetry 96 Oxygen Delivery Method Room Air BMI result Body Mass Index 49.0 Labs Results: 01/01/22 18:20 01/01/22 18:19 Medications Medications Current Medications Acetaminophen (Acetaminophen 325 Mg Tablet) 650 mg PO Q6H PRN PRN Reason: Headache/Pain Mild Scale (1-3) Last Admin: 12/24/21 20:33 Dose: 650 mg Al Hydroxide/Mg Hydroxide (Magnesium Hydrox/Alum Hydrox 30 Ml Oral.Susp) 30 ml PO Q6H PRN PRN Reason: Heartburn/Nausea Hydroxyzine HCl (Hydroxyzine Hcl 25 Mg Tablet) 25 mg PO Q6H PRN PRN Reason: Anxiety Last Admin: 01/06/22 20:36 Dose: 25 mg Magnesium Hydroxide (Milk Of Magnesia 30 Ml Oral.Susp) 30 ml PO DAILY PRN PRN Reason: Constipation Mirtazapine (Mirtazapine 15 Mg Tablet) 15 mg PO BEDTIME LACEY Last Admin: 01/06/22 20:35 Dose: 15 mg Nitrofurantoin Macrocrystals (Nitrofurantoin Macrocrystal 50 Mg Capsule) 100 mg PO BEDTIME LACEY Last Admin: 01/06/22 20:35 Dose: 100 mg Risperidone (Risperidone 0.5 Mg Tablet) 0.5 mg PO BEDTIME LACEY Last Admin: 01/06/22 20:36 Dose: 0.5 mg Trazodone HCl (Trazodone Hcl 50 Mg Tablet) 50 mg PO BEDTIME PRN PRN Reason: Insomnia Last Admin: 01/05/22 21:03 Dose: 50 mg Trazodone HCl (Trazodone Hcl 50 Mg Tablet) 50 mg PO TID PRN PRN Reason: anxiety/agitation Last Admin: 01/04/22 02:40 Dose: 50 mg Trazodone HCl (Trazodone Hcl 100 Mg Tablet) 100 mg PO BEDTIME LACEY Last Admin: 01/06/22 20:36 Dose: 100 mg Allergies Allergies Allergy/AdvReac Type Severity Reaction Status Date / Time No Known Allergies Allergy Verified 12/10/21 14:27 Assessment & Plan Assessment & Plan (1) Delirium superimposed on dementia: Status: Acute Code(s): F05 - Delirium due to known physiological condition (2) Alzheimer's dementia with behavioral disturbance: Status: Acute Code(s): G30.9 - Alzheimer's disease, unspecified; F02.81 - Dementia in other diseases classified elsewhere, unspecified severity, with behavioral disturbance Plan Elderly female with cognitive decline admitted for disorganized behavior. Also it was noticed on the crisis assessment that she was violent. While she was in the unit she did not show any behavioral disturbances or violence but she looks confused and dysphoric. 12/31 disorganized in speech and behavior; may be oriented to self but not to place, time or situation; not eating or drinking much or attending to ADLs 01/01 patient remains disorganized in speech behavior; she is hardly drinking anything and not eating. -labs: WNL -will continue to monitor 01/07/2022: No changes to current treatment plan Supervisor Irrigation told that healthcare proxy has been invoked Plan 1. Gather collateral information. 2. Use trazodone 100 mg p.o. q.h.s. to target insomnia. 3. Since she has more dysphoric increase Remeron up to 15 mg p.o. q.h.s. 4. Start Risperdal 0.5 p.o. q.h.s. 5. Placement I spent minutes with the patient and/or on the patient floor today, greater than?50% of which was spent counseling/coordinating care. Reason for contiued inpatient stay Substantial Risk for: inability to function
[2022-01-07 18:00] VITALS: BP 114/73; PULSE 86; RESP 12; TEMP 36.5; O2SAT 96
[2022-01-07] MEDS: nitrofurantoin macrocrystaL 50 MG CAPSULE 100 MG PO (20:45)
[2022-01-07] MEDS: traZODone HCL 100 MG TABLET PO (20:45)
[2022-01-07] MEDS: hydrOXYzine HCL 25 MG TABLET PO (20:46)
[2022-01-07] MEDS: Mirtazapine 15 MG TABLET PO (20:46)
[2022-01-07] MEDS: risperiDONE 0.5 MG TABLET PO (20:46)
--- NOTE | 2022-01-08 10:11 | HO.PSYCHPN ---
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 Discussed with Nursing. Hiding behind door last night during checks- in playful manner rather than paranoia based. Overall no significant issues since yesterday. IN bed. Reported no new issues. Stuffed animal. Difficulty following conversation. No evidence of depression. No aggression or agitation. Medication Compliance: Yes Side effects from medications: No Attending Groups: No Review of Systems Acute medical concerns: No Review of Systems Review of Systems Yes Unobtainable due to mental status Mental Status Exam Mental Status Exam Narrative: Pleasant. IN bed. Minimal engagement this morning. Fair hygiene. Difficulty with orientation focus and concentration consistent with well-established dementia. No evidence of depression SI HI agitation or psychosis. Insight and judgment poor Diagnostics Vital Signs (24Hr): Vital Signs - 24 hr 01/07/22 18:00 Temperature 97.7 F Pulse Rate 86 Respiratory Rate 12 Blood Pressure 114/73 Pulse Oximetry 96 Oxygen Delivery Method Room Air BMI result Body Mass Index 49.0 Labs Results: 01/01/22 18:20 01/01/22 18:19 Medications Medications Current Medications Acetaminophen (Acetaminophen 325 Mg Tablet) 650 mg PO Q6H PRN PRN Reason: Headache/Pain Mild Scale (1-3) Last Admin: 12/24/21 20:33 Dose: 650 mg Al Hydroxide/Mg Hydroxide (Magnesium Hydrox/Alum Hydrox 30 Ml Oral.Susp) 30 ml PO Q6H PRN PRN Reason: Heartburn/Nausea Hydroxyzine HCl (Hydroxyzine Hcl 25 Mg Tablet) 25 mg PO Q6H PRN PRN Reason: Anxiety Last Admin: 01/07/22 20:46 Dose: 25 mg Magnesium Hydroxide (Milk Of Magnesia 30 Ml Oral.Susp) 30 ml PO DAILY PRN PRN Reason: Constipation Mirtazapine (Mirtazapine 15 Mg Tablet) 15 mg PO BEDTIME LACEY Last Admin: 01/07/22 20:46 Dose: 15 mg Risperidone (Risperidone 0.5 Mg Tablet) 0.5 mg PO BEDTIME LACEY Last Admin: 01/07/22 20:46 Dose: 0.5 mg Trazodone HCl (Trazodone Hcl 50 Mg Tablet) 50 mg PO BEDTIME PRN PRN Reason: Insomnia Last Admin: 01/05/22 21:03 Dose: 50 mg Trazodone HCl (Trazodone Hcl 50 Mg Tablet) 50 mg PO TID PRN PRN Reason: anxiety/agitation Last Admin: 01/04/22 02:40 Dose: 50 mg Trazodone HCl (Trazodone Hcl 100 Mg Tablet) 100 mg PO BEDTIME LACEY Last Admin: 01/07/22 20:45 Dose: 100 mg Allergies Allergies Allergy/AdvReac Type Severity Reaction Status Date / Time No Known Allergies Allergy Verified 12/10/21 14:27 Assessment & Plan Assessment & Plan (1) Delirium superimposed on dementia: Status: Acute Code(s): F05 - Delirium due to known physiological condition (2) Alzheimer's dementia with behavioral disturbance: Status: Acute Code(s): G30.9 - Alzheimer's disease, unspecified; F02.81 - Dementia in other diseases classified elsewhere, unspecified severity, with behavioral disturbance Plan Elderly female with cognitive decline admitted for disorganized behavior. Also it was noticed on the crisis assessment that she was violent. While she was in the unit she did not show any behavioral disturbances or violence but she looks confused and dysphoric. 12/31 disorganized in speech and behavior; may be oriented to self but not to place, time or situation; not eating or drinking much or attending to ADLs 01/01 patient remains disorganized in speech behavior; she is hardly drinking anything and not eating. -labs: WNL -will continue to monitor 01/08/2022: No changes to current treatment plan [facility] Service Line told that healthcare proxy has been invoked Plan 1. Gather collateral information. 2. Use trazodone 100 mg p.o. q.h.s. to target insomnia. 3. Since she has more dysphoric increase Remeron up to 15 mg p.o. q.h.s. 4. Start Risperdal 0.5 p.o. q.h.s. 5. Placement I spent minutes with the patient and/or on the patient floor today, greater than?50% of which was spent counseling/coordinating care. Reason for contiued inpatient stay Substantial Risk for: inability to function
[2022-01-08 18:00] VITALS: BP 110/56; PULSE 74; RESP 12; TEMP 36.2; O2SAT 97
[2022-01-08] MEDS: risperiDONE 0.5 MG TABLET PO (20:31)
[2022-01-08] MEDS: traZODone HCL 100 MG TABLET PO (20:31)
[2022-01-08] MEDS: Mirtazapine 15 MG TABLET PO (20:32)
[2022-01-09 07:30] VITALS: BP 108/67; PULSE 56; RESP 16; TEMP 36.4; O2SAT 99
[2022-01-09] MEDS: Acetaminophen 325 MG TABLET 650 MG PO (11:16)
--- NOTE | 2022-01-09 13:51 | HO.PSYCHPN ---
Subjective Subjective Date of Service: 01/09/22 Reason For Visit: Major Neurocongnitive disturbance due to medical c Subjective Notes: Conditional Voluntary Interim History: the nursing staff reported the patient slept all night long home the therapy room. She remains confused but easily redirectable. The director of social media marketing reported that the [facility] application has been done and we are just waiting for placement. On interview the patient remains pleasantly confused. Mental Status Exam Mental Status Exam Patient Appearance: Well Grooomed Patient Orientation: Person and Situation Level of Consciousness: Awake Patient Behavior: Guarded, Cooperative and Passive Mood Description: Withdrawn Affect Description: Labile Patient Cognition Impaired: Yes Ability to Follow Directions: Fair Speech Pattern: Clear Hallucinations: None Delusions: Paranoid Ideation Thought Process: Illogical Thought Content: positive for [place] Judgement: Fair Diagnostics Vital Signs (24Hr): Vital Signs - 24 hr 01/08/22 18:00 Temperature 97.1 F Pulse Rate 74 Respiratory Rate 12 Blood Pressure 110/56 L Pulse Oximetry 97 Oxygen Delivery Method Room Air BMI result Body Mass Index 49.0 Labs Results: 01/01/22 18:20 01/01/22 18:19 Medications Medications Current Medications Acetaminophen (Acetaminophen 325 Mg Tablet) 650 mg PO Q6H PRN PRN Reason: Headache/Pain Mild Scale (1-3) Last Admin: 01/09/22 11:16 Dose: 650 mg Al Hydroxide/Mg Hydroxide (Magnesium Hydrox/Alum Hydrox 30 Ml Oral.Susp) 30 ml PO Q6H PRN PRN Reason: Heartburn/Nausea Hydroxyzine HCl (Hydroxyzine Hcl 25 Mg Tablet) 25 mg PO Q6H PRN PRN Reason: Anxiety Last Admin: 01/07/22 20:46 Dose: 25 mg Magnesium Hydroxide (Milk Of Magnesia 30 Ml Oral.Susp) 30 ml PO DAILY PRN PRN Reason: Constipation Mirtazapine (Mirtazapine 15 Mg Tablet) 15 mg PO BEDTIME LACEY Last Admin: 01/08/22 20:32 Dose: 15 mg Risperidone (Risperidone 0.5 Mg Tablet) 0.5 mg PO BEDTIME LACEY Last Admin: 01/08/22 20:31 Dose: 0.5 mg Trazodone HCl (Trazodone Hcl 50 Mg Tablet) 50 mg PO BEDTIME PRN PRN Reason: Insomnia Last Admin: 01/05/22 21:03 Dose: 50 mg Trazodone HCl (Trazodone Hcl 50 Mg Tablet) 50 mg PO TID PRN PRN Reason: anxiety/agitation Last Admin: 01/04/22 02:40 Dose: 50 mg Trazodone HCl (Trazodone Hcl 100 Mg Tablet) 100 mg PO BEDTIME LACEY Last Admin: 01/08/22 20:31 Dose: 100 mg Allergies Allergies Allergy/AdvReac Type Severity Reaction Status Date / Time No Known Allergies Allergy Verified 12/10/21 14:27 Assessment & Plan Assessment & Plan (1) Delirium superimposed on dementia: Status: Acute Code(s): F05 - Delirium due to known physiological condition (2) Alzheimer's dementia with behavioral disturbance: Status: Acute Code(s): G30.9 - Alzheimer's disease, unspecified; F02.81 - Dementia in other diseases classified elsewhere, unspecified severity, with behavioral disturbance Plan Elderly female with cognitive decline admitted for disorganized behavior. Also it was noticed on the crisis assessment that she was violent. While she was in the unit she did not show any behavioral disturbances or violence but she looks confused and dysphoric. 10 disorganized in speech and behavior; may be oriented to self but not to place, time or situation; not eating or drinking much or attending to ADLs 01/01 patient remains disorganized in speech behavior; she is hardly drinking anything and not eating. -labs: WNL -will continue to monitor 01/08/2022: No changes to current treatment plan Gas Technician told that healthcare proxy has been invoked Plan 1. Gather collateral information. 2. Use trazodone 100 mg p.o. q.h.s. to target insomnia. 3. Since she has more dysphoric increase Remeron up to 15 mg p.o. q.h.s. 4. Start Risperdal 0.5 p.o. q.h.s. 5. Placement I spent __20____ minutes with the patient and/or on the patient floor today, greater than?50% of which was spent counseling/coordinating care. Reason for contiued inpatient stay Substantial Risk for: inability to function, rapid decompensation and med/psych decompensation
[2022-01-09 20:00] VITALS: BP 117/72; PULSE 92; RESP 18; TEMP 36.7; O2SAT 93
[2022-01-09] MEDS: Mirtazapine 15 MG TABLET PO (21:18)
[2022-01-09] MEDS: risperiDONE 0.5 MG TABLET PO (21:18)
[2022-01-09] MEDS: traZODone HCL 100 MG TABLET PO (21:18)
[2022-01-09] MEDS: traZODone HCL 50 MG TABLET PO (21:18)
[2022-01-10 07:30] VITALS: BP 108/57; PULSE 67; RESP 16; TEMP 36.2; O2SAT 97
--- NOTE | 2022-01-10 12:01 | HO.PSYCHPN ---
Subjective Subjective Date of Service: 01/10/22 Reason For Visit: Major Neurocongnitive disturbance due to medical c Subjective Notes: Conditional Voluntary Interim History: The nursing staff reported the patient slept on her own room last night. the aids social worker talked with her daughter about a [facility] application and they are waiting for proper discharge planning. Probably she will be discharged this Sunday or early next week. On interview the patient remains pleasantly confused, carrying a baby doll.. Mental Status Exam Mental Status Exam Patient Appearance: Well Grooomed Patient Orientation: Person Level of Consciousness: Awake Mood Description: Withdrawn Affect Description: Labile Patient Cognition Impaired: Yes Ability to Follow Directions: Fair Speech Pattern: Clear Hallucinations: None Delusions: Not Present Thought Process: Illogical and Distracted Thought Content: positive for Poverty of Content Judgement: Poor Diagnostics Vital Signs (24Hr): Vital Signs - 24 hr 01/09/22 20:00 Temperature 98.1 F Pulse Rate 92 Respiratory Rate 18 Blood Pressure 117/72 Pulse Oximetry 93 Oxygen Delivery Method Room Air BMI result Body Mass Index 49.0 Labs Results: 01/01/22 18:20 01/01/22 18:19 Medications Medications Current Medications Acetaminophen (Acetaminophen 325 Mg Tablet) 650 mg PO Q6H PRN PRN Reason: Headache/Pain Mild Scale (1-3) Last Admin: 01/09/22 11:16 Dose: 650 mg Al Hydroxide/Mg Hydroxide (Magnesium Hydrox/Alum Hydrox 30 Ml Oral.Susp) 30 ml PO Q6H PRN PRN Reason: Heartburn/Nausea Hydroxyzine HCl (Hydroxyzine Hcl 25 Mg Tablet) 25 mg PO Q6H PRN PRN Reason: Anxiety Last Admin: 01/07/22 20:46 Dose: 25 mg Magnesium Hydroxide (Milk Of Magnesia 30 Ml Oral.Susp) 30 ml PO DAILY PRN PRN Reason: Constipation Mirtazapine (Mirtazapine 15 Mg Tablet) 15 mg PO BEDTIME LACEY Last Admin: 01/09/22 21:18 Dose: 15 mg Risperidone (Risperidone 0.5 Mg Tablet) 0.5 mg PO BEDTIME LACEY Last Admin: 01/09/22 21:18 Dose: 0.5 mg Trazodone HCl (Trazodone Hcl 50 Mg Tablet) 50 mg PO BEDTIME PRN PRN Reason: Insomnia Last Admin: 01/09/22 21:18 Dose: 50 mg Trazodone HCl (Trazodone Hcl 50 Mg Tablet) 50 mg PO TID PRN PRN Reason: anxiety/agitation Last Admin: 01/04/22 02:40 Dose: 50 mg Trazodone HCl (Trazodone Hcl 100 Mg Tablet) 100 mg PO BEDTIME LACEY Last Admin: 01/09/22 21:18 Dose: 100 mg Allergies Allergies Allergy/AdvReac Type Severity Reaction Status Date / Time No Known Allergies Allergy Verified 12/10/21 14:27 Assessment & Plan Assessment & Plan (1) Delirium superimposed on dementia: Status: Acute Code(s): F05 - Delirium due to known physiological condition (2) Alzheimer's dementia with behavioral disturbance: Status: Acute Code(s): G30.9 - Alzheimer's disease, unspecified; F02.81 - Dementia in other diseases classified elsewhere, unspecified severity, with behavioral disturbance Plan Elderly female with cognitive decline admitted for disorganized behavior. Also it was noticed on the crisis assessment that she was violent. While she was in the unit she did not show any behavioral disturbances or violence but she looks confused and dysphoric. 12/31 disorganized in speech and behavior; may be oriented to self but not to place, time or situation; not eating or drinking much or attending to ADLs 01/01 patient remains disorganized in speech behavior; she is hardly drinking anything and not eating. -labs: WNL -will continue to monitor 01/08/2022: No changes to current treatment plan Packaging Inspector told that healthcare proxy has been invoked Plan 1. Gather collateral information. 2. Use trazodone 100 mg p.o. q.h.s. to target insomnia. 3. Since she has more dysphoric increase Remeron up to 15 mg p.o. q.h.s. 4. Start Risperdal 0.5 p.o. q.h.s. 5. Placement I spent __20____ minutes with the patient and/or on the patient floor today, greater than?50% of which was spent counseling/coordinating care. Reason for contiued inpatient stay Substantial Risk for: inability to function, rapid decompensation and med/psych decompensation
[2022-01-10] MEDS: traZODone HCL 50 MG TABLET PO (21:00)
[2022-01-10] MEDS: hydrOXYzine HCL 25 MG TABLET PO (21:01)
[2022-01-10] MEDS: traZODone HCL 100 MG TABLET PO (21:01)
[2022-01-10] MEDS: risperiDONE 0.5 MG TABLET PO (21:01)
[2022-01-10] MEDS: Mirtazapine 15 MG TABLET PO (21:01)
[2022-01-11 11:48] VITALS: BP 106/84; PULSE 92; TEMP 36.4; O2SAT 93
--- NOTE | 2022-01-11 13:29 | P.PNPSI_ITS ---
Subjective Subjective Date of Service: 01/11/22 Reason For Visit: Major Neurocongnitive disturbance due to medical c Subjective Notes: Conditional Voluntary Interim History: The nursing staff reported that yesterday she was resistant to care and she had a shower yesterday. She slept 8 hours with medications. On interview she remains pleasantly confused. Non-sensical at times. Mental Status Exam Mental Status Exam Patient Appearance: Well Grooomed Patient Orientation: Person and Situation Level of Consciousness: Awake Patient Behavior: Cooperative Mood Description: Withdrawn Affect Description: Labile Patient Cognition Impaired: Yes Ability to Follow Directions: Fair Speech Pattern: Clear Hallucinations: None Delusions: Paranoid Ideation Thought Process: Distracted Thought Content: positive for Circumstantial and positive for Loose Associations Judgement: Poor Diagnostics Vital Signs (24Hr): Vital Signs - 24 hr 01/11/22 11:48 Temperature 97.6 F Pulse Rate 92 Blood Pressure 106/84 Pulse Oximetry 93 Oxygen Delivery Method Room Air BMI result Body Mass Index 49.0 Labs Results: 01/01/22 18:20 01/01/22 18:19 Medications Medications Current Medications Acetaminophen (Acetaminophen 325 Mg Tablet) 650 mg PO Q6H PRN PRN Reason: Headache/Pain Mild Scale (1-3) Last Admin: 01/09/22 11:16 Dose: 650 mg Al Hydroxide/Mg Hydroxide (Magnesium Hydrox/Alum Hydrox 30 Ml Oral.Susp) 30 ml PO Q6H PRN PRN Reason: Heartburn/Nausea Hydroxyzine HCl (Hydroxyzine Hcl 25 Mg Tablet) 25 mg PO Q6H PRN PRN Reason: Anxiety Last Admin: 01/10/22 21:01 Dose: 25 mg Magnesium Hydroxide (Milk Of Magnesia 30 Ml Oral.Susp) 30 ml PO DAILY PRN PRN Reason: Constipation Mirtazapine (Mirtazapine 15 Mg Tablet) 15 mg PO BEDTIME LACEY Last Admin: 01/10/22 21:01 Dose: 15 mg Risperidone (Risperidone 0.5 Mg Tablet) 0.5 mg PO BEDTIME LACEY Last Admin: 01/10/22 21:01 Dose: 0.5 mg Trazodone HCl (Trazodone Hcl 50 Mg Tablet) 50 mg PO BEDTIME PRN PRN Reason: Insomnia Last Admin: 01/10/22 21:00 Dose: 50 mg Trazodone HCl (Trazodone Hcl 50 Mg Tablet) 50 mg PO TID PRN PRN Reason: anxiety/agitation Last Admin: 01/04/22 02:40 Dose: 50 mg Trazodone HCl (Trazodone Hcl 100 Mg Tablet) 100 mg PO BEDTIME LACEY Last Admin: 01/10/22 21:01 Dose: 100 mg Allergies Allergies Allergy/AdvReac Type Severity Reaction Status Date / Time No Known Allergies Allergy Verified 12/10/21 14:27 Assessment & Plan Assessment & Plan (1) Delirium superimposed on dementia: Status: Acute Code(s): F05 - Delirium due to known physiological condition (2) Alzheimer's dementia with behavioral disturbance: Status: Acute Code(s): G30.9 - Alzheimer's disease, unspecified; F02.81 - Dementia in other diseases classified elsewhere, unspecified severity, with behavioral disturbance Plan Elderly female with cognitive decline admitted for disorganized behavior. Also it was noticed on the crisis assessment that she was violent. While she was in the unit she did not show any behavioral disturbances or violence but she looks confused and dysphoric. 12/31 disorganized in speech and behavior; may be oriented to self but not to place, time or situation; not eating or drinking much or attending to ADLs 01/01 patient remains disorganized in speech behavior; she is hardly drinking anything and not eating. -labs: WNL -will continue to monitor 01/08/2022: No changes to current treatment plan Job Developer For Deaf Adults told that healthcare proxy has been invoked Plan 1. Gather collateral information. 2. Use trazodone 100 mg p.o. q.h.s. to target insomnia. 3. Since she has more dysphoric increase Remeron up to 15 mg p.o. q.h.s. 4. Start Risperdal 0.5 p.o. q.h.s. 5. Placement . The social work case manager reported that she could be discharged next Sunday to an appropriate facility. I spent __20____ minutes with the patient and/or on the patient floor today, greater than?50% of which was spent counseling/coordinating care. Reason for contiued inpatient stay Substantial Risk for: inability to function, rapid decompensation and med/psych decompensation
[2022-01-11 18:00] VITALS: BP 149/81; PULSE 76; RESP 16; TEMP 36.4; O2SAT 98
[2022-01-11] MEDS: traZODone HCL 100 MG TABLET PO (20:07)
[2022-01-11] MEDS: risperiDONE 0.5 MG TABLET PO (20:07)
[2022-01-11] MEDS: Mirtazapine 15 MG TABLET PO (20:07)
[2022-01-12 06:00] VITALS: BP 111/68; PULSE 75; RESP 17; TEMP 35.9; O2SAT 96
--- NOTE | 2022-01-12 11:11 | P.PNPSI_ITS ---
Subjective Subjective Date of Service: 01/12/22 Reason For Visit: Major Neurocongnitive disturbance due to medical c Subjective Notes: Conditional Voluntary Interim History: The nursing staff reported the patient slept 7 hours, she has been cooperative with care. Yesterday she was seen tearful, her visited her. The executive secretary social welfare reported that she will be discharged next used a. On interview the patient denies new symptoms she looks pleasantly confused. Mental Status Exam Mental Status Exam Patient Appearance: Well Grooomed Patient Orientation: Person Level of Consciousness: Awake Patient Behavior: Guarded and Passive Mood Description: Calm Affect Description: Constricted Patient Cognition Impaired: Yes Ability to Follow Directions: Fair Speech Pattern: Clear Hallucinations: None Delusions: Not Present Thought Process: Distracted and Slowed Thinking Thought Content: positive for [place] Judgement: Poor Diagnostics Vital Signs (24Hr): Vital Signs - 24 hr 01/11/22 11:48 01/11/22 18:00 01/12/22 06:00 Temperature 97.6 F 97.6 F 96.7 F L Pulse Rate 92 76 75 Respiratory Rate 16 17 Blood Pressure 106/84 149/81 H 111/68 Pulse Oximetry 93 98 96 Oxygen Delivery Method Room Air Room Air Room Air BMI result Body Mass Index 49.0 Labs Results: 01/01/22 18:20 01/01/22 18:19 Medications Medications Current Medications Acetaminophen (Acetaminophen 325 Mg Tablet) 650 mg PO Q6H PRN PRN Reason: Headache/Pain Mild Scale (1-3) Last Admin: 01/09/22 11:16 Dose: 650 mg Al Hydroxide/Mg Hydroxide (Magnesium Hydrox/Alum Hydrox 30 Ml Oral.Susp) 30 ml PO Q6H PRN PRN Reason: Heartburn/Nausea Hydroxyzine HCl (Hydroxyzine Hcl 25 Mg Tablet) 25 mg PO Q6H PRN PRN Reason: Anxiety Last Admin: 01/10/22 21:01 Dose: 25 mg Magnesium Hydroxide (Milk Of Magnesia 30 Ml Oral.Susp) 30 ml PO DAILY PRN PRN Reason: Constipation Mirtazapine (Mirtazapine 15 Mg Tablet) 15 mg PO BEDTIME LACEY Last Admin: 01/11/22 20:07 Dose: 15 mg Risperidone (Risperidone 0.5 Mg Tablet) 0.5 mg PO BEDTIME LACEY Last Admin: 01/11/22 20:07 Dose: 0.5 mg Trazodone HCl (Trazodone Hcl 50 Mg Tablet) 50 mg PO BEDTIME PRN PRN Reason: Insomnia Last Admin: 01/10/22 21:00 Dose: 50 mg Trazodone HCl (Trazodone Hcl 50 Mg Tablet) 50 mg PO TID PRN PRN Reason: anxiety/agitation Last Admin: 01/04/22 02:40 Dose: 50 mg Trazodone HCl (Trazodone Hcl 100 Mg Tablet) 100 mg PO BEDTIME LACEY Last Admin: 01/11/22 20:07 Dose: 100 mg Allergies Allergies Allergy/AdvReac Type Severity Reaction Status Date / Time No Known Allergies Allergy Verified 12/10/21 14:27 Assessment & Plan Assessment & Plan (1) Delirium superimposed on dementia: Status: Acute Code(s): F05 - Delirium due to known physiological condition (2) Alzheimer's dementia with behavioral disturbance: Status: Acute Code(s): G30.9 - Alzheimer's disease, unspecified; F02.81 - Dementia in other diseases classified elsewhere, unspecified severity, with behavioral disturbance Plan Elderly female with cognitive decline admitted for disorganized behavior. Also it was noticed on the crisis assessment that she was violent. While she was in the unit she did not show any behavioral disturbances or violence but she looks confused and dysphoric. 12/31 disorganized in speech and behavior; may be oriented to self but not to place, time or situation; not eating or drinking much or attending to ADLs 01/01 patient remains disorganized in speech behavior; she is hardly drinking anything and not eating. -labs: WNL -will continue to monitor 01/08/2022: No changes to current treatment plan Car Pick Up Driver told that healthcare proxy has been invoked Plan 1. Gather collateral information. 2. Use trazodone 100 mg p.o. q.h.s. to target insomnia. 3. Since she has more dysphoric increase Remeron up to 15 mg p.o. q.h.s. 4. Start Risperdal 0.5 p.o. q.h.s. 5. Placement . The executive secretary social welfare reported that she could be discharged next Sunday to an appropriate facility. I spent __20____ minutes with the patient and/or on the patient floor today, greater than?50% of which was spent counseling/coordinating care. Reason for contiued inpatient stay Substantial Risk for: inability to function, rapid decompensation and med/psych decompensation
[2022-01-12 15:54] VITALS: BMI 48.9
[2022-01-12 18:00] VITALS: BP 140/65; PULSE 84; RESP 16; TEMP 36.6; O2SAT 95
[2022-01-12] MEDS: traZODone HCL 100 MG TABLET PO (20:15)
[2022-01-12] MEDS: risperiDONE 0.5 MG TABLET PO (20:15)
[2022-01-12] MEDS: Mirtazapine 15 MG TABLET PO (20:15)
--- NOTE | 2022-01-13 11:10 | HO.PSYCHPN ---
Subjective Subjective Date of Service: 01/13/22 Reason For Visit: Major Neurocongnitive disturbance due to medical c Subjective Notes: Conditional Voluntary Interim History: the nursing staff reported the patient slept well, she received visitor from her family and relatives. She had been fully compliant with treatment, pleasantly confused. On interview the patient denies new symptoms, we will need a new COVID test before discharge. Mental Status Exam Mental Status Exam Patient Appearance: Well Grooomed Patient Orientation: Person Level of Consciousness: Awake Mood Description: Withdrawn Affect Description: Labile Patient Cognition Impaired: Yes Ability to Follow Directions: Good Speech Pattern: Clear Hallucinations: None Delusions: Paranoid Ideation Thought Process: Illogical Thought Content: positive for Poverty of Content and positive for [place]ential Judgement: Poor Diagnostics Vital Signs (24Hr): Vital Signs - 24 hr 01/12/22 18:00 Temperature 97.9 F Pulse Rate 84 Respiratory Rate 16 Blood Pressure 140/65 H Pulse Oximetry 95 Oxygen Delivery Method Room Air BMI result Body Mass Index 48.9 Labs Results: 01/01/22 18:20 01/01/22 18:19 Medications Medications Current Medications Acetaminophen (Acetaminophen 325 Mg Tablet) 650 mg PO Q6H PRN PRN Reason: Headache/Pain Mild Scale (1-3) Last Admin: 01/09/22 11:16 Dose: 650 mg Al Hydroxide/Mg Hydroxide (Magnesium Hydrox/Alum Hydrox 30 Ml Oral.Susp) 30 ml PO Q6H PRN PRN Reason: Heartburn/Nausea Hydroxyzine HCl (Hydroxyzine Hcl 25 Mg Tablet) 25 mg PO Q6H PRN PRN Reason: Anxiety Last Admin: 01/10/22 21:01 Dose: 25 mg Magnesium Hydroxide (Milk Of Magnesia 30 Ml Oral.Susp) 30 ml PO DAILY PRN PRN Reason: Constipation Mirtazapine (Mirtazapine 15 Mg Tablet) 15 mg PO BEDTIME LACEY Last Admin: 01/12/22 20:15 Dose: 15 mg Risperidone (Risperidone 0.5 Mg Tablet) 0.5 mg PO BEDTIME LACEY Last Admin: 01/12/22 20:15 Dose: 0.5 mg Trazodone HCl (Trazodone Hcl 50 Mg Tablet) 50 mg PO BEDTIME PRN PRN Reason: Insomnia Last Admin: 01/10/22 21:00 Dose: 50 mg Trazodone HCl (Trazodone Hcl 50 Mg Tablet) 50 mg PO TID PRN PRN Reason: anxiety/agitation Last Admin: 01/04/22 02:40 Dose: 50 mg Trazodone HCl (Trazodone Hcl 100 Mg Tablet) 100 mg PO BEDTIME LACEY Last Admin: 01/12/22 20:15 Dose: 100 mg Allergies Allergies Allergy/AdvReac Type Severity Reaction Status Date / Time No Known Allergies Allergy Verified 12/10/21 14:27 Assessment & Plan Assessment & Plan (1) Delirium superimposed on dementia: Status: Acute Code(s): F05 - Delirium due to known physiological condition (2) Alzheimer's dementia with behavioral disturbance: Status: Acute Code(s): G30.9 - Alzheimer's disease, unspecified; F02.81 - Dementia in other diseases classified elsewhere, unspecified severity, with behavioral disturbance Plan Elderly female with cognitive decline admitted for disorganized behavior. Also it was noticed on the crisis assessment that she was violent. While she was in the unit she did not show any behavioral disturbances or violence but she looks confused and dysphoric. Green Promotions Specialist told that healthcare proxy has been invoked Plan 1. Gather collateral information. 2. Use trazodone 100 mg p.o. q.h.s. to target insomnia. 3. Since she was dysphoric keep Remeron up to 15 mg p.o. q.h.s. 4. Start Risperdal 0.5 p.o. q.h.s. 5. Placement . The social services assistant reported that she could be discharged next Sunday to an appropriate facility. I spent __20____ minutes with the patient and/or on the patient floor today, greater than?50% of which was spent counseling/coordinating care. Reason for contiued inpatient stay Substantial Risk for: inability to function, rapid decompensation and med/psych decompensation
--- NOTE | 2022-01-13 13:13 | MHC.CLN ---
F/U REVIEW OF WEIGHT HX SHOWS -3.5% WEIGHT LOSS SINCE 12/15, WITH WEIGHT ESSENTIALLY STABLE X 1 WEEK. STAFF REPORTS VARIABLE INTAKE AT MEALS. DIET=REGULAR. ENSURE TID PROVIDES ADDITIONAL 1050 KCALS, 60 G PROTEIN. CONTINUE TO ENCOURAGE INTAKE AND MEALS AND SUPPLEMENT. RD TO FOLLOW WEEKLY.
[2022-01-13 18:00] VITALS: BP 119/72; PULSE 77; RESP 18; TEMP 36.6; O2SAT 95
[2022-01-13] MEDS: risperiDONE 0.5 MG TABLET PO (20:26)
[2022-01-13] MEDS: traZODone HCL 100 MG TABLET PO (20:26)
[2022-01-13] MEDS: Mirtazapine 15 MG TABLET PO (20:26)
[2022-01-14 06:00] VITALS: PULSE 78; TEMP 36.3; O2SAT 96
[2022-01-14 18:00] VITALS: BP 129/65; PULSE 73; RESP 18; TEMP 36.5; O2SAT 95
[2022-01-14] MEDS: traZODone HCL 100 MG TABLET PO (20:05)
[2022-01-14] MEDS: Mirtazapine 15 MG TABLET PO (20:05)
[2022-01-14] MEDS: risperiDONE 0.5 MG TABLET PO (20:05)
--- NOTE | 2022-01-14 22:30 | P.PNPSI_ITS ---
Subjective Subjective Date of Service: 01/14/22 Reason For Visit: Major Neurocongnitive disturbance due to medical c Subjective Notes: Mcbride Warning Interim History: Met with pt's team. She is leaving on for a facility. I spoke with pt. She is non-sensical in speech, labile, tearful. Unable to answer questions, when asked how she is pt says I dont have an address yet. Mood is im okay. Denies physical health issues. Randomly says you dont know how old he is or what he?s doing. Medication Compliance: Yes Side effects from medications: No Review of Systems Acute medical concerns: No Medical Review of Systems: unchanged Mental Status Exam Mental Status Exam Narrative: Patient Appearance: Well Grooomed Patient Orientation: Person Level of Consciousness: Awake Mood Description: Withdrawn Affect Description: Labile Patient Cognition Impaired: Yes Ability to Follow Directions: Good Speech Pattern: Clear Hallucinations: None Delusions: Paranoid Ideation Thought Process: Illogical Thought Content: positive for Poverty of Content and positive for Tangential Judgement: Poor Diagnostics Vital Signs (24Hr): Vital Signs - 24 hr 01/14/22 06:00 01/14/22 18:00 Temperature 97.4 F 97.7 F Pulse Rate 78 73 Respiratory Rate 18 Blood Pressure 129/65 Pulse Oximetry 96 95 Oxygen Delivery Method Room Air Room Air BMI result Body Mass Index 48.9 Labs Results: 01/01/22 18:20 01/01/22 18:19 Medications Medications Current Medications Acetaminophen (Acetaminophen 325 Mg Tablet) 650 mg PO Q6H PRN PRN Reason: Headache/Pain Mild Scale (1-3) Last Admin: 01/09/22 11:16 Dose: 650 mg Al Hydroxide/Mg Hydroxide (Magnesium Hydrox/Alum Hydrox 30 Ml Oral.Susp) 30 ml PO Q6H PRN PRN Reason: Heartburn/Nausea Hydroxyzine HCl (Hydroxyzine Hcl 25 Mg Tablet) 25 mg PO Q6H PRN PRN Reason: Anxiety Last Admin: 01/10/22 21:01 Dose: 25 mg Magnesium Hydroxide (Milk Of Magnesia 30 Ml Oral.Susp) 30 ml PO DAILY PRN PRN Reason: Constipation Mirtazapine (Mirtazapine 15 Mg Tablet) 15 mg PO BEDTIME LACEY Last Admin: 01/14/22 20:05 Dose: 15 mg Risperidone (Risperidone 0.5 Mg Tablet) 0.5 mg PO BEDTIME LACEY Last Admin: 01/14/22 20:05 Dose: 0.5 mg Trazodone HCl (Trazodone Hcl 50 Mg Tablet) 50 mg PO BEDTIME PRN PRN Reason: Insomnia Last Admin: 01/10/22 21:00 Dose: 50 mg Trazodone HCl (Trazodone Hcl 50 Mg Tablet) 50 mg PO TID PRN PRN Reason: anxiety/agitation Last Admin: 01/04/22 02:40 Dose: 50 mg Trazodone HCl (Trazodone Hcl 100 Mg Tablet) 100 mg PO BEDTIME LACEY Last Admin: 01/14/22 20:05 Dose: 100 mg Allergies Allergies Allergy/AdvReac Type Severity Reaction Status Date / Time No Known Allergies Allergy Verified 12/10/21 14:27 Assessment & Plan Assessment & Plan (1) Delirium superimposed on dementia: Status: Acute Code(s): F05 - Delirium due to known physiological condition (2) Alzheimer's dementia with behavioral disturbance: Status: Acute Code(s): G30.9 - Alzheimer's disease, unspecified; F02.81 - Dementia in other diseases classified elsewhere, unspecified severity, with behavioral disturbance Plan Elderly female with cognitive decline admitted for disorganized behavior. Also it was noticed on the crisis assessment that she was violent. While she was in the unit she did not show any behavioral disturbances or violence but she looks confused and dysphoric. Senior Windows Administrator told that healthcare proxy has been invoked Plan 1. Gather collateral information. 2. Use trazodone 100 mg p.o. q.h.s. to target insomnia. 3. Since she was dysphoric keep Remeron up to 15 mg p.o. q.h.s. 4. Start Risperdal 0.5 p.o. q.h.s. 5. Placement . The social media senior associate reported that she could be discharged next Sunday to an appropriate facility. I spent minutes with the patient and/or on the patient floor today, greater than?50% of which was spent counseling/coordinating care. Patient educated on: other Reason for contiued inpatient stay Substantial Risk for: inability to function, rapid decompensation and med/psych decompensation
--- NOTE | 2022-01-15 12:55 | HO.PSYCHPN ---
Subjective Subjective Date of Service: 01/15/22 Reason For Visit: Major Neurocongnitive disturbance due to medical c Subjective Notes: Mcbride Warning Interim History: Met with pt and discussed with team. She has been quiet today. Pt says she is fine. When asked about sleep pt says I guess. At times not responding to questions, suspicious, holding stuffed animal dog. Medication Compliance: Yes Side effects from medications: No Attending Groups: No Review of Systems Acute medical concerns: No Medical Review of Systems: unchanged Mental Status Exam Mental Status Exam Narrative: Patient Appearance: Well Grooomed Patient Orientation: Person Level of Consciousness: Awake Mood Description: Withdrawn Affect Description: Labile Patient Cognition Impaired: Yes Ability to Follow Directions: Good Speech Pattern: Clear Hallucinations: None Delusions: Paranoid Ideation Thought Process: Illogical Thought Content: positive for Poverty of Content and positive for Tangential Judgement: Poor Diagnostics Vital Signs (24Hr): Vital Signs - 24 hr 01/14/22 18:00 Temperature 97.7 F Pulse Rate 73 Respiratory Rate 18 Blood Pressure 129/65 Pulse Oximetry 95 Oxygen Delivery Method Room Air BMI result Body Mass Index 48.9 Labs Results: 01/01/22 18:20 01/01/22 18:19 Medications Medications Current Medications Acetaminophen (Acetaminophen 325 Mg Tablet) 650 mg PO Q6H PRN PRN Reason: Headache/Pain Mild Scale (1-3) Last Admin: 01/09/22 11:16 Dose: 650 mg Al Hydroxide/Mg Hydroxide (Magnesium Hydrox/Alum Hydrox 30 Ml Oral.Susp) 30 ml PO Q6H PRN PRN Reason: Heartburn/Nausea Hydroxyzine HCl (Hydroxyzine Hcl 25 Mg Tablet) 25 mg PO Q6H PRN PRN Reason: Anxiety Last Admin: 01/10/22 21:01 Dose: 25 mg Magnesium Hydroxide (Milk Of Magnesia 30 Ml Oral.Susp) 30 ml PO DAILY PRN PRN Reason: Constipation Mirtazapine (Mirtazapine 15 Mg Tablet) 15 mg PO BEDTIME LACEY Last Admin: 01/14/22 20:05 Dose: 15 mg Risperidone (Risperidone 0.5 Mg Tablet) 0.5 mg PO BEDTIME LACEY Last Admin: 01/14/22 20:05 Dose: 0.5 mg Trazodone HCl (Trazodone Hcl 50 Mg Tablet) 50 mg PO BEDTIME PRN PRN Reason: Insomnia Last Admin: 01/10/22 21:00 Dose: 50 mg Trazodone HCl (Trazodone Hcl 50 Mg Tablet) 50 mg PO TID PRN PRN Reason: anxiety/agitation Last Admin: 01/04/22 02:40 Dose: 50 mg Trazodone HCl (Trazodone Hcl 100 Mg Tablet) 100 mg PO BEDTIME LACEY Last Admin: 01/14/22 20:05 Dose: 100 mg Allergies Allergies Allergy/AdvReac Type Severity Reaction Status Date / Time No Known Allergies Allergy Verified 12/10/21 14:27 Assessment & Plan Assessment & Plan (1) Delirium superimposed on dementia: Status: Acute Code(s): F05 - Delirium due to known physiological condition (2) Alzheimer's dementia with behavioral disturbance: Status: Acute Code(s): G30.9 - Alzheimer's disease, unspecified; F02.81 - Dementia in other diseases classified elsewhere, unspecified severity, with behavioral disturbance Plan Elderly female with cognitive decline admitted for disorganized behavior. Also it was noticed on the crisis assessment that she was violent. While she was in the unit she did not show any behavioral disturbances or violence but she looks confused and dysphoric. It Technical Support Specialist told that healthcare proxy has been invoked Plan 1. Gather collateral information. 2. Use trazodone 100 mg p.o. q.h.s. to target insomnia. 3. Since she was dysphoric keep Remeron up to 15 mg p.o. q.h.s. 4. Start Risperdal 0.5 p.o. q.h.s. 5. Placement . The dialysis social worker reported that she could be discharged next Sunday to an appropriate facility. I spent minutes with the patient and/or on the patient floor today, greater than?50% of which was spent counseling/coordinating care. Patient educated on: other Reason for contiued inpatient stay Substantial Risk for: inability to function, rapid decompensation and med/psych decompensation
[2022-01-15 18:00] VITALS: BP 124/70; PULSE 100; RESP 16; TEMP 36.1; O2SAT 96
[2022-01-15] MEDS: risperiDONE 0.5 MG TABLET PO (20:24)
[2022-01-15] MEDS: Mirtazapine 15 MG TABLET PO (20:24)
[2022-01-15] MEDS: traZODone HCL 100 MG TABLET PO (20:27)
--- NOTE | 2022-01-16 11:14 | P.PNPSI_ITS ---
Subjective Subjective Date of Service: 01/16/22 Reason For Visit: Major Neurocongnitive disturbance due to medical c Subjective Notes: Conditional Voluntary Healthcare Proxy: Yes Guardianship: No Interim History: The nursing staff reported that yesterday she was slightly irritated but attends she was cheerful and talkative. The web content & social media manager reported tomorrow she will be discharged on assisting living facility. On interview the patient remains pleasantly confused. Medication Compliance: Yes Mental Status Exam Mental Status Exam Patient Appearance: Well Grooomed Patient Orientation: Person Level of Consciousness: Disoriented Patient Behavior: Guarded and Passive Mood Description: Withdrawn Affect Description: Labile Patient Cognition Impaired: Yes Ability to Follow Directions: Good Speech Pattern: Clear Hallucinations: None Delusions: Not Present Thought Process: Illogical and Distracted Thought Content: positive for [place] Judgement: Fair Diagnostics Vital Signs (24Hr): Vital Signs - 24 hr 01/15/22 18:00 Temperature 97 F Pulse Rate 100 Respiratory Rate 16 Blood Pressure 124/70 Pulse Oximetry 96 Oxygen Delivery Method Room Air BMI result Body Mass Index 48.9 Labs Results: 01/01/22 18:20 01/01/22 18:19 Medications Medications Current Medications Acetaminophen (Acetaminophen 325 Mg Tablet) 650 mg PO Q6H PRN PRN Reason: Headache/Pain Mild Scale (1-3) Last Admin: 01/09/22 11:16 Dose: 650 mg Al Hydroxide/Mg Hydroxide (Magnesium Hydrox/Alum Hydrox 30 Ml Oral.Susp) 30 ml PO Q6H PRN PRN Reason: Heartburn/Nausea Hydroxyzine HCl (Hydroxyzine Hcl 25 Mg Tablet) 25 mg PO Q6H PRN PRN Reason: Anxiety Last Admin: 01/10/22 21:01 Dose: 25 mg Magnesium Hydroxide (Milk Of Magnesia 30 Ml Oral.Susp) 30 ml PO DAILY PRN PRN Reason: Constipation Mirtazapine (Mirtazapine 15 Mg Tablet) 15 mg PO BEDTIME LACEY Last Admin: 01/15/22 20:24 Dose: 15 mg Risperidone (Risperidone 0.5 Mg Tablet) 0.5 mg PO BEDTIME LACEY Last Admin: 01/15/22 20:24 Dose: 0.5 mg Trazodone HCl (Trazodone Hcl 50 Mg Tablet) 50 mg PO BEDTIME PRN PRN Reason: Insomnia Last Admin: 01/10/22 21:00 Dose: 50 mg Trazodone HCl (Trazodone Hcl 50 Mg Tablet) 50 mg PO TID PRN PRN Reason: anxiety/agitation Last Admin: 01/04/22 02:40 Dose: 50 mg Trazodone HCl (Trazodone Hcl 100 Mg Tablet) 100 mg PO BEDTIME LACEY Last Admin: 01/15/22 20:27 Dose: 100 mg Allergies Allergies Allergy/AdvReac Type Severity Reaction Status Date / Time No Known Allergies Allergy Verified 12/10/21 14:27 Assessment & Plan Assessment & Plan (1) Delirium superimposed on dementia: Status: Acute Code(s): F05 - Delirium due to known physiological condition (2) Alzheimer's dementia with behavioral disturbance: Status: Acute Code(s): G30.9 - Alzheimer's disease, unspecified; F02.81 - Dementia in other diseases classified elsewhere, unspecified severity, with behavioral disturbance Plan Elderly female with cognitive decline admitted for disorganized behavior. Also it was noticed on the crisis assessment that she was violent. While she was in the unit she did not show any behavioral disturbances or violence but she looks confused and dysphoric. Crib Attendant told that healthcare proxy has been invoked Plan 1. Gather collateral information. 2. Use trazodone 100 mg p.o. q.h.s. to target insomnia. 3. Since she was dysphoric keep Remeron up to 15 mg p.o. q.h.s. 4. Start Risperdal 0.5 p.o. q.h.s. 5. Placement . The web content & social media manager reported that she could be discharged next Sunday to an appropriate facility. I spent __20____ minutes with the patient and/or on the patient floor today, greater than?50% of which was spent counseling/coordinating care. Reason for contiued inpatient stay Substantial Risk for: inability to function, rapid decompensation and med/psych decompensation
[2022-01-16 11:27] LABS: COVID-19 Test Negative (Negative); IDNOW Serial# 9DB6401D
[2022-01-16 18:00] VITALS: BP 118/70; PULSE 84; RESP 18; TEMP 36.8; O2SAT 94
[2022-01-16] MEDS: Mirtazapine 15 MG TABLET PO (20:33)
[2022-01-16] MEDS: risperiDONE 0.5 MG TABLET PO (20:33)
[2022-01-16] MEDS: traZODone HCL 100 MG TABLET PO (20:33)
[2022-01-17 06:00] VITALS: BP 125/78; PULSE 64; RESP 18; TEMP 35.9; O2SAT 96
--- NOTE | 2022-01-17 08:16 | P.DS_ITS ---
DS: Providers Provider Date of Service: 01/17/22 Date of admission: 12/10/21 12:34 Date of discharge: 01/17/22 Primary care physician: Nonstaff Physician Consults: 12/10/21 16:25 Consult to Hospitalist Routine Consulting Provider: Hospitalist Reason For Exam: medical h&P DS: Diagnosis Discharge Diagnosis (1) Delirium superimposed on dementia: Status: Acute (2) Alzheimer's dementia with behavioral disturbance: Status: Acute DS: Medications Discharge Medications Home Medications: Home Medications Medication Instructions Recorded Confirmed Risperdal 1 tab PO 2XD 12/10/21 12/10/21 lorazepam 0.5 mg PO 3XD 12/10/21 12/10/21 Mental Status Exam Mental Status Exam Patient Appearance: Appropriate Patient Orientation: Person Level of Consciousness: Awake Patient Behavior: Guarded and Passive Mood Description: Constricted Affect Description: Calm Patient Cognition Impaired: Yes Ability to Follow Directions: Good Speech Pattern: Impoverished, Soft-Spoken and Animated Hallucinations: None Delusions: Paranoid Ideation Thought Process: Illogical Thought Content: positive for [place] and positive for Poverty of Content Judgement: Poor Data Data Completed and Pending Completed studies during hospitalization [Text1]: 01/16/22 10:40 COVID-19 (MAX) Negative COVID-19 Clin Com See Note 12/13/21 10:55 Urine clean catch - Urine collazo top Urine Culture - Final Escherichia coli DS: Summary Hospital Course Hospital Course: The patient was transferred from the emergency room due to exacerbation of agitation and psychosis in the context of a UTI. Please see the HPI on the admission note for further details. On admission, the patient was grossly disorganized, with poor short-term memory but easily redirectable. the 1st weeks we did not see any evidence of violence that he was described on the emergency assessment. We observed her behavior and we did not start any antipsychotics or antidepressants and she was doing fairly well. Later on, we gather collateral information and other providers Such as her neurologist, have found that she was psychotic, responding to internal stimuli with paranoia. We start treating her with a low dose of Risperdal with no side effects. We also start treating her depression with antidepressants with for improvement. The patient was assessed by the occupational therapist and she scored very low on the [place] and the ACLS. It was clear that the patient needed a higher level o f care for disposition. We had several family meetings and finally the family agreed on transferring her to an assisted living facility memory unit since there were no safety concerns discharge planning was discussed. Time spent discussing smoking cessation with patient: 3 to 10 minutes Status at Discharge Cognitive/behavioral status at discharge: Very impaired at baseline Functional status at discharge: independent ambulation Overall status at discharge: patient is back to baseline Time Spent with Patient Time attestation: Total time spent providing and/or coordinating discharge services: Time spent: Less than 30 minutes Discharge Plan Discharge Patient Disposition: [facility] Discharge Diagnosis: delirium dementia Referrals: Physician,Nonstaff [Primary Care Provider] - 1 Week Discharge Medications: New acetaminophen 325 mg Tablet 650 mg PO Q6H PRN (Reason: Headache/Pain Mild Scale (1-3)) 30 Days Qty: 60 0RF trazodone 50 mg Tablet 50 mg PO BEDTIME PRN (Reason: Insomnia) 30 Days Qty: 30 0RF trazodone 50 mg Tablet 50 mg PO TID PRN (Reason: anxiety/agitation) 30 Days Qty: 60 0RF trazodone 100 mg Tablet 100 mg PO BEDTIME 30 Days Qty: 30 0RF mirtazapine 15 mg Tablet 15 mg PO BEDTIME 30 Days Qty: 30 0RF risperidone 0.5 mg Tablet 0.5 mg PO BEDTIME 30 Days Qty: 30 0RF Discontinued Risperdal 1 mg tablet 1 tab PO 2XD lorazepam 0.5 mg tablet 0.5 mg PO 3XD Discharge Orders: Discharge Order (Routine); Ordered 01/17/22 Ordered By: Grfifin Barkley Diet: Advance to usual diet Activity on Discharge: As tolerated Stand Alone Forms: Patient Portal Discharge page Care Plan Goals: care plan goals achieved in this admission Health Concerns: continue treatment by outpatient providers Plan of Treatment: continue treatment by outpatient Assessment: the patient is an elderly female with advanced dementia who was admitted for psychotic symptoms in the context of UTI that was treated with antibiotics. At this moment she is at her baseline, poorly functional but safe to be discharged to appropriate setting with high structure.
== END 2022-01-17 10:50 | DRG 57 ==
PROVIDERS: Physician Assistant; Psychiatry & Neurology Psychiatry; Social Worker; Admitting Provider Psychiatry & Neurology Psychiatry; Visit Provider Psychiatry & Neurology Psychiatry
DX: G30.9 Alzheimer's disease, unspecified (principal); F05 Delirium due to known physiological condition; F02.811 Dementia in other diseases classified elsewhere, unspecified severity, with agitation; N39.0 Urinary tract infection, site not specified; Z20.822 Contact with and (suspected) exposure to COVID-19; Z87.440 Personal history of urinary (tract) infections
CPT/HCPCS: 36415; 80048; 80051; 80053; 80061; 80076; 81001; 82140; 82565; 82607; 83036; 84443; 84520; 85025; 87086; 87088; 87186; 87635